=== PATIENT | male | born 1955 | race Caucasian/White ===

== ENCOUNTER 2017-02-08 09:56 | Inpatient (IN) | payer MEDICARE, MEDICAID ==
[~2017-02-08] VITALS: Ht 172.7 cm; Wt 117.9 kg
[~2017-02-08 09:56] MED LIST: CARV12.52 PO; DICL75TA5 PO; EZET10TA PO; FLUT1DIS5 IH; ICOS1CAP PO; MISO200T4 PO; PANT40TA2 GT; POTA10CA43 PO; QUET25TA PO; SERT50TA12 PO; SIMV40TA5 PO; TAMS0.4C34 PO; TIOT18CA3 INH; ZOLP5TAB2 PO
--- NOTE | 2017-02-08 10:10 | NUR ---
BBRA FROM HOME FOR BLE LEG PAIN, AND BILAT ARM PAIN X TODAY. LABORED BREATHING ON OXYGEN VIA NC DOUPER. DENIES CHEST PAIN. SEEN BY MD FOR EVAL. SAFETY AND COMFORT MEASURES PROVIDED. WILL MONITOR.
[2017-02-08 10:47] LABS: BASOPHILS # (AUTO) 0.1 /CMM (0.0-0.2); BASOPHILS % (AUTO) 0.6 % (0.0-2.0); EOSINOPHILS # (AUTO) 0.2 /CMM (0.0-0.7); EOSINOPHILS % (AUTO) 2.4 % (0.0-6.0); HEMATOCRIT 45 % (39-51); HEMOGLOBIN 14.3 g/dL (13.5-17.5); LYMPHOCYTES # (AUTO) 2.2 /CMM (0.8-4.8); LYMPHOCYTES % (AUTO) 25.3 % (20.0-44.0); MEAN CORPUSCULAR HEMOGLOBIN 28 PG (26.0-33.0); MEAN CORPUSCULAR HGB CONC 32 g/dl (31.0-36.0); MEAN CORPUSCULAR VOLUME 89 fL (80-96); MONOCYTES # (AUTO) 0.7 /CMM (0.1-1.30); MONOCYTES % (AUTO) 7.5 % (2.0-12.0); NEUTROPHILS # (AUTO) 5.6 /CMM (1.8-8.9); NEUTROPHILS % (AUTO) 64.2 % (43.0-81.0); PLATELET COUNT (AUTO) 200 /CMM (150-450); RED BLOOD CELL COUNT(AUTO) 5.07 MIL/uL (4.5-6.0); WHITE BLOOD COUNT (AUTO) 8.8 K/uL (4.3-11.0)
[2017-02-08 11:05] LABS: TROPONIN I < 0.017 ng/mL (0.00-0.056)
[2017-02-08 11:10] LABS: ALANINE AMINOTRANSFERASE 27 U/L (12-78); ALBUMIN 3.3 g/dL (3.4-5.0); ALKALINE PHOSPHATASE 61 U/L (46-116); ASPARTATE AMINOTRANSFERASE 15 U/L (15-37); B-TYPE NATRIURETIC PEPTIDE 71 PG/ML (0-125); BILIRUBIN,DIRECT 0.1 mg/dL (0.0-0.2); BILIRUBIN,TOTAL 0.3 mg/dL (0.2-1.0); CALCIUM, SERUM 8.6 mg/dL (8.5-10.1); CHLORIDE 103 mmol/L (98-107); CREATININE 0.8 mg/dL (0.6-1.3); GLUCOSE 125 mg/dL (74-106); SODIUM SERUM 144 mmol/L (136-145); TOTAL PROTEIN, SERUM 6.8 g/dL (6.4-8.2); UREA NITROGEN, BLOOD 13 mg/dL (7-18)
[2017-02-08 11:12] LABS: CARBON DIOXIDE 42 mmol/L (21-32)
[2017-02-08] MEDS ORDERED: VALS80TA2 PO (11:18)
[2017-02-08] MEDS ORDERED: PREG50CA PO (11:18)
[2017-02-08] MEDS ORDERED: PRED20TA PO (11:18)
[2017-02-08] MEDS ORDERED: METF500T4 PO (11:18)
[2017-02-08] MEDS ORDERED: ALBU18HF2 IH (11:18)
[2017-02-08] MEDS ORDERED: ATOR40TA PO (11:18)
[2017-02-08] MEDS ORDERED: BUME2TAB3 PO (11:18)
[2017-02-08] MEDS ORDERED: LINA145C PO (11:18)
[2017-02-08] MEDS ORDERED: POTA10TA15 PO (11:18)
[2017-02-08] MEDS ORDERED: ERGO50003 PO (11:18)
[2017-02-08 12:42] LABS: ABG BASE EXCESS 9.7 mmol/L; ABG OXYGEN SATURATION 92.9 % (92.0-98.5); ABG PCO2 45.7 mmHg (35.0-45.0); ABG PH 7.494 (7.350-7.450); COHb 0.9 % (0.5-1.5); MetHb 0.2 % (0.0-1.5); O2Hb 91.9 % (94.0-97.0); SITE, ABG Right Brachial; VENT MODE, BG NASAL CANNULA
--- NOTE | 2017-02-08 14:18 | NUR ---
GAVE REPORT TO FERNIE GRIDERHELEN ROOM [address] DR PRICE
--- NOTE | 2017-02-08 14:30 | NUR ---
RN NOTES ADMITTED A 61Y/O M FROM ER WITH DX OF COPD EXACERBATION. PT IS ALERT, SLEEPY RESPONSIVE TO VERBAL AND TACTILE STIMULI. PT ABLE TO COMMUNICATE NEEDS. PT IS ON O2@4LPM VIA NC, VS TAKEN AND RECORDED. BODY CHECK DONE NOTE RASHES ON THE BACK, PICTURES TAKEN AND FILED ON THE CHART. MD MADE AWARE OF RASHES, WOUND CONSULT ORDERED. ORIENTED PT TO UNIT AND CALL LIGHT USE, SAFETY MAINTAINED, NEEDS ATTENDED. CALL LIGHT WITHIN REACH.
[2017-02-08 14:45] VITALS: BP 148/69
[2017-02-08 16:00] VITALS: BP 148/69
--- NOTE | 2017-02-08 18:27 | NUR ---
RN NOTES PT SITTING IN BED, EATING DINNER, PT REMINDED TO BRING HOME MEDS OR ASK SOMEONE FROM HIS HOME TO BRING CURRENT MEDS. PT OKAYED
--- NOTE | 2017-02-08 18:45 | NUR ---
RN NOTES DR PRICE AT BEDSIDE, PT WAS SEEN AND EVALUATED. FAMILY MEMBERS AT BEDSIDE. PLAN OF CARE DISCUSSED BY MD. PT VERBALIZED CONCERNS AND UNDERSTANDING. REMINDED AND SON TO BRING PT HOME MEDS. AGREED.
[2017-02-08 20:00] VITALS: BP 111/78
--- NOTE | 2017-02-08 23:45 | NUR ---
Tx to 204 via w/c and belongings
[2017-02-09 00:30] VITALS: BP 128/63
--- NOTE | 2017-02-09 00:30 | NUR ---
MS FAMILY LIFE COUNSELOR NOTES: RECEIVED REPORT FROM BURTON BAILEY. PATIENT BOUGHT TO MS 2ND FLOOR VIA WHEELCHAIR, AOX4, ON O2 AT 2 LPM VIA NC. BREATHING APPEARS EVEN AND UNLABORED AT RATE OF 20- 22 PER MIN, NOTED SLIGHT COARSE CRACKLES UPON AUSCULTATION. PIV OVER LEFT HAND TENDER TO TOUCH. D'SUDHAKAR PIV AND REINSERTED NEW IV LINE OVER LEFT WRIST G22. PROVIDED FOR COMFORT AND SAFETY. BED IN LOWEST AND LOCKED POSITION, SIDERAILS UPX3. MAINTAINED HOB ELEVATED. WILL CONT TO MONITOR.
[2017-02-09 01:20] VITALS: BP 128/63
--- NOTE | 2017-02-09 03:40 | NUR ---
RN NOTES: PATIENT COMPLAINED OF PAIN OVER BLE SCLAED AT 8-10. ADMINISTERED NORCO 5- 325 MG PO. PROVIDED FOR COMFORT AND REST. WILL CONT TO MONITOR.
[2017-02-09 06:27] LABS: BASOPHILS % (AUTO) 0.2 % (0.0-2.0); HEMATOCRIT 43 % (39-51); LYMPHOCYTES # (AUTO) 1.4 /CMM (0.8-4.8); LYMPHOCYTES % (AUTO) 11.4 % (20.0-44.0); MEAN CORPUSCULAR HEMOGLOBIN 29 PG (26.0-33.0); MEAN CORPUSCULAR HGB CONC 33 g/dl (31.0-36.0); MEAN CORPUSCULAR VOLUME 89 fL (80-96); MONOCYTES # (AUTO) 0.7 /CMM (0.1-1.30); MONOCYTES % (AUTO) 5.8 % (2.0-12.0); NEUTROPHILS # (AUTO) 9.9 /CMM (1.8-8.9); NEUTROPHILS % (AUTO) 82.6 % (43.0-81.0); PLATELET COUNT (AUTO) 228 /CMM (150-450); RDW COEFFICIENT OF VARIATION 14.6 (11.5-15.0); RED BLOOD CELL COUNT(AUTO) 4.77 MIL/uL (4.5-6.0)
--- NOTE | 2017-02-09 06:33 | NUR ---
MS RN CLOSING NOTES: PATIENT IN BED, AOX4, ON O2 AT 2 LPM VIA NC, BREATHING EVEN AND UNLABORED. BREATH SOUNDS STILL WITH SLIGHT CRACKLES HEARD UPON AUSCULTATION. APPEARS CALM AND IN NO DISTRESS. PIV OVER L WRIST G22 INTACT AND PATENT TO FLUSH. NO ACUTE CHANGE IN CONDITION NOTED THROUGH SHIFT. PROVIDED FOR COMFORT AND SAFETY. BED IN LOWEST AND LOCKED POSITION, SIDERAILS UPX2. WILL ENDORSE TO AM RN FOR ADRIANA.
[2017-02-09 06:47] LABS: CALCIUM, SERUM 9.2 mg/dL (8.5-10.1); CREATININE 0.7 mg/dL (0.6-1.3); MAGNESIUM 1.7 mg/dL (1.8-2.4); POTASSIUM 3.6 mmol/L (3.5-5.1)
--- NOTE | 2017-02-09 07:05 | NUR ---
MS Initial Notes: Received patient resting in bed. Patient alert oriented x4. Non-labored breathing on 2 L nasal cannula. Patient denies pain at the moment. IV site on left wrist patent and intact. Bed in lowest locked position. Call light within reach. Will continue to monitor.
[2017-02-09 08:00] VITALS: BP 132/77
[2017-02-09 16:00] VITALS: BP_SYST 131; BP_DIAS 81; BP_DIAS 88
--- NOTE | 2017-02-09 19:00 | NUR ---
MS Closing Notes: Received patient resting in bed. Patient alert oriented x4. Non-labored breathing on 2 L nasal cannula. Patient denies pain at the moment. IV site on left wrist patent and intact. Bed in lowest locked position. Call light within reach. During shift, patient kept clean and dry. Patient encouraged to turn and reposition every 2 hours. Endorsed to next shift
--- NOTE | 2017-02-09 19:30 | NUR ---
MS RN OPENING NOTES: PATIENT IN BED, AOX4, ON O2 AT 3 LPM VIA NC, BREATHING EVEN AND UNLABORED AT RATE OF 18 TO 20 PER MIN, BREATH SOUNDS CLEAR UPON AUSCULTATION AT THIS TIME. PATIENT APPEARS CALM AND IN NO DISTRESS, WATCHING TELEVISION. DENIES PAIN. PIV OVER LEFT WRIST G 22 INTACT AND PATENT TO FLUSH. PROVIDED FOR COMFORT AND SAFETY. MAINTAINED HOB AT SEMI FOWLERS, SIDERAILS UP X2, WILL CONT TO MONITOR.
[2017-02-09 20:00] VITALS: BP 124/72
--- NOTE | 2017-02-10 06:48 | NUR ---
MS RN CLOSING NOTES: PATIENT IN BED, AOX4, ON O2 AT 3 LPM VIA NC, BREATHING EVEN AND UNLABORED, BUT STILL WITH SOME SLIGHT CRACKLES HEARD UPON AUSCULTATION, WITH OCCASIONAL COUGH NOTED. PIV OVER LEFT WRIST G22 INTACT AND PATENT TO FLUSH. PROVIDED FOR COMFORT AND SAFETY. MAINTAINED HOB ELEVATED. NO ACUTE CHANGE IN CONDITION NOTED THROUGH SHIFT. WILL ENDORSE TO AM RN FOR ADRIANA.
[2017-02-10 07:03] LABS: BASOPHILS % (AUTO) 0.1 % (0.0-2.0); EOSINOPHILS % (AUTO) 0.3 % (0.0-6.0); HEMATOCRIT 46 % (39-51); LYMPHOCYTES # (AUTO) 2.9 /CMM (0.8-4.8); LYMPHOCYTES % (AUTO) 21.9 % (20.0-44.0); MEAN CORPUSCULAR HEMOGLOBIN 29 PG (26.0-33.0); MEAN CORPUSCULAR HGB CONC 33 g/dl (31.0-36.0); MEAN CORPUSCULAR VOLUME 90 fL (80-96); MONOCYTES % (AUTO) 7.4 % (2.0-12.0); NEUTROPHILS # (AUTO) 9.3 /CMM (1.8-8.9); NEUTROPHILS % (AUTO) 70.3 % (43.0-81.0); PLATELET COUNT (AUTO) 229 /CMM (150-450); RED BLOOD CELL COUNT(AUTO) 5.15 MIL/uL (4.5-6.0); WHITE BLOOD COUNT (AUTO) 13.2 K/uL (4.3-11.0)
--- NOTE | 2017-02-10 07:10 | NUR ---
ms rn initial notes Received patient in bed, awake, head of bed elevated, no SOB or distress noted. on 3lpm via NC and tolerated well, 02 saturation of 98%. No complaint of pain or discomfort noted. IV intact and patent. Barbadian speaking and understand salvadorean. Kept patient clean and comfortable in bed, call light with in patient reach, will continue to monitor accordingly.
[2017-02-10 07:19] LABS: CALCIUM, SERUM 9.3 mg/dL (8.5-10.1); CREATININE 0.8 mg/dL (0.6-1.3); POTASSIUM 3.2 mmol/L (3.5-5.1)
[2017-02-10 08:00] VITALS: BP 104/69
--- NOTE | 2017-02-10 13:14 | NUR ---
ms rn notes Dr. Calvillo came seen and examined the patient and ordered Guaifenesin with codeine 10 ml Qhs PRN. All orders carried out and noted. Will continue to monitor accordingly.
[2017-02-10 16:00] VITALS: BP 114/69
--- NOTE | 2017-02-10 19:28 | NUR ---
ms rn closing notes All needs provided, attended, and anticipated. Endorsed to next shift RN to continue care.
--- NOTE | 2017-02-10 19:30 | NUR ---
MS RN NOTE: PATIENT RESTING IN BED, NO ACUTE DISTRESS NOTED. BREATHING EVEN AND UNLABORED, NO SOB NOTED. IV TO LEFT WRIST IN PLACE. BED LOCKED AND IN LOWEST POSITION, CALL LIGHT IN REACH, WILL CONTINUE TO MONITOR.
[2017-02-10 19:59] VITALS: BP 102/57
--- NOTE | 2017-02-10 21:00 | NUR ---
MS RN NOTE: PATIENT COMPLAINS OF PAIN TO LEFT LEG 11/18, NORCO 5/325MG 1 TAB ORAL GIVEN PER MD ORDER. WILL CONTINUE TO MONITOR.
--- NOTE | 2017-02-10 23:30 | NUR ---
MS RN NOTE: PATIENT REQUEST FOR SLEEPING MEDICATIONS, AMBIEN 5MG 1 TAB ORAL GIVEN PER MD ORDER. WILL CONTINUE TO MONITOR.
--- NOTE | 2017-02-11 06:00 | NUR ---
MS RN NOTE: PATIENT RESTING IN BED, NO ACUTE DISTRESS NOTED. BREATHING EVEN AND UNLABORED, NO SOB NOTED. IV TO LEFT WRIST IN PLACE. BED LOCKED AND IN LOWEST POSITION, CALL LIGHT IN REACH, WILL ENDORSE TO DAY NURSE TO CONTINUE WITH PLAN OF CARE.
[2017-02-11 06:30] LABS: BASOPHILS % (AUTO) 0.3 % (0.0-2.0); EOSINOPHILS # (AUTO) 0.1 /CMM (0.0-0.7); EOSINOPHILS % (AUTO) 1.2 % (0.0-6.0); HEMATOCRIT 50 % (39-51); HEMOGLOBIN 16.5 g/dL (13.5-17.5); LYMPHOCYTES # (AUTO) 3.8 /CMM (0.8-4.8); LYMPHOCYTES % (AUTO) 32.8 % (20.0-44.0); MEAN CORPUSCULAR HEMOGLOBIN 29 PG (26.0-33.0); MEAN CORPUSCULAR HGB CONC 33 g/dl (31.0-36.0); MEAN CORPUSCULAR VOLUME 88 fL (80-96); MONOCYTES # (AUTO) 0.7 /CMM (0.1-1.30); MONOCYTES % (AUTO) 6.4 % (2.0-12.0); NEUTROPHILS # (AUTO) 6.9 /CMM (1.8-8.9); NEUTROPHILS % (AUTO) 59.3 % (43.0-81.0); PLATELET COUNT (AUTO) 255 /CMM (150-450); RED BLOOD CELL COUNT(AUTO) 5.67 MIL/uL (4.5-6.0); WHITE BLOOD COUNT (AUTO) 11.7 K/uL (4.3-11.0)
[2017-02-11 06:43] LABS: CALCIUM, SERUM 9.3 mg/dL (8.5-10.1); CREATININE 0.9 mg/dL (0.6-1.3); POTASSIUM 3.3 mmol/L (3.5-5.1)
--- NOTE | 2017-02-11 07:02 | NUR ---
ms rn initial notes Received patient in bed, asleep, head of bed elevated, no sob or distress noted. On 02 @ 2lpm via NC and tolerated well 02 saturation of 98%. IV intact and patent HL only. Alert and oriented x 3, verbally responsive and able to make needs known. Kept patient clean and comfortable in bed, call light with in patient reach, will continue to monitor accordingly.
[2017-02-11 08:00] VITALS: BP_SYST 116; BP_SYST 138; BP_DIAS 71; BP_DIAS 88
[2017-02-11 16:00] VITALS: BP 114/63
--- NOTE | 2017-02-11 19:11 | NUR ---
ms rn closing notes All needs provided, attended, and anticipated. Kept patient clean and comfortable in bed, call light with in patient reach, endorsed to next shift RN to continue care.
--- NOTE | 2017-02-11 19:30 | NUR ---
MS2/RN RECEIVE PATIENT AWAKE, ALERT, ORIENTED, COMFORTABLE, NO DISTRESS NOTED, CALL LIGHT IN REACH. WILL MONITOR.
[2017-02-11 20:00] VITALS: BP 102/63
--- NOTE | 2017-02-11 21:14 | NUR ---
MS2/RN C/O COUGH, ROBITUSSIN 10 ML PO WAS GIVEN ORDERED. WILL MONITOR.
--- NOTE | 2017-02-11 22:02 | NUR ---
MS2/RN PATIENT STATES HIS COUGH IS BETTER AND HE FEELS BETTER AT THIS TIME. PATIENT WANTS MEDICATION THAT WILL MAKE HIM SLEEP. PATIENT STATES HE HAS NO SLEEP FOR 3 DAYS NOW. WILL MEDICATE WITH AMBIEN 5 MG PO ORDERED.
--- NOTE | 2017-02-11 23:50 | NUR ---
MS2/RN PATIENT IS SLEEPING AT THIS TIME, APPEAR COMFORTABLE, NO SIGNS OF DISTRESS NOTED, CALL LIGHT IN REACH. WILL CONTINUE TO MONITOR.
--- NOTE | 2017-02-12 06:32 | NUR ---
MS2/RN PATIENT AWAKE, STATES STILL HAS PAIN IN BOTH LEGS, NO DISTRESS NOTED, ALL NEEDS ATTENDED AT THIS TIME. WILL CONTINUE TO MONITOR.
[2017-02-12 06:38] LABS: BASOPHILS # (AUTO) 0.1 /CMM (0.0-0.2); BASOPHILS % (AUTO) 0.5 % (0.0-2.0); EOSINOPHILS % (AUTO) 0.3 % (0.0-6.0); HEMATOCRIT 48 % (39-51); HEMOGLOBIN 15.8 g/dL (13.5-17.5); LYMPHOCYTES # (AUTO) 2.4 /CMM (0.8-4.8); MEAN CORPUSCULAR HEMOGLOBIN 29 PG (26.0-33.0); MEAN CORPUSCULAR HGB CONC 33 g/dl (31.0-36.0); MEAN CORPUSCULAR VOLUME 88 fL (80-96); MONOCYTES # (AUTO) 0.9 /CMM (0.1-1.30); MONOCYTES % (AUTO) 5.4 % (2.0-12.0); NEUTROPHILS # (AUTO) 12.6 /CMM (1.8-8.9); NEUTROPHILS % (AUTO) 78.8 % (43.0-81.0); PLATELET COUNT (AUTO) 217 /CMM (150-450); RDW COEFFICIENT OF VARIATION 15.1 (11.5-15.0); RED BLOOD CELL COUNT(AUTO) 5.47 MIL/uL (4.5-6.0); WHITE BLOOD COUNT (AUTO) 15.9 K/uL (4.3-11.0)
[2017-02-12 07:15] LABS: CALCIUM, SERUM 9.5 mg/dL (8.5-10.1); CREATININE 0.9 mg/dL (0.6-1.3)
--- NOTE | 2017-02-12 08:00 | NUR ---
MS BURTON AM notes Received patient in bed, awake,alert, head of bed elevated, no sob or distress noted. On 02 @ 4lpm via NC and tolerated well 02 saturation of 98%.Alert and oriented x 4, verbally responsive and able to make needs known.denies SOB.with BRP using FWW.Kept patient clean and comfortable in bed, call light with in patient reach, will continue to monitor accordingly.
--- NOTE | 2017-02-12 08:00 | NUR ---
MS BURTON AM Notes Received patient in bed, alert,awake with head of bed elevated, no sob or distress noted. On 02 @ 2lpm via NC and tolerated well 02 saturation of 98%. IV intact and patent HL only. Alert and oriented x 3, verbally responsive and able to make needs known. On NPO for pending sx.Awaiting for Dr High's surgical order.CT of left knee without contrast still pending.Kept patient clean and comfortable in bed, call light with in patient reach, will continue to monitor accordingly. Addendum: 02/12/17 at 1230 by LEO EASTON RN pls ignore above notes-wrong pt documentation.
[2017-02-12 08:11] VITALS: BP 108/70
[2017-02-12 08:42] VITALS: BP 108/70
[2017-02-12] MEDS ORDERED: HYDR-548 PO (11:01)
--- NOTE | 2017-02-12 15:40 | NUR ---
DISCHARGED PT HOME WITH STABLE V/S.DENIES ANY SOB,PAIN OR DISTRESS.ACCOMPANIED BY HIS HOME VIA PRIVATE CAR.DISCHARGE INSTRUCTIONS,MED RECONCILIATION,PRESCRIPTIONS AND MED TEACHING GIVEN TO THE PT.
== END 2017-02-12 15:40 | disposition home or self-care (01) | DRG 189 ==
LOC: ER 09:58 → MEDSG1 14:07 → MEDSG2 23:56
PROVIDERS: ADMIT Family Medicine; ATTEND Family Medicine
DX: J96.02 Acute respiratory failure with hypercapnia (principal); J44.1 Chronic obstructive pulmonary disease with (acute) exacerbation; E44.1 Mild protein-calorie malnutrition; I11.0 Hypertensive heart disease with heart failure; I50.32 Chronic diastolic (congestive) heart failure; Z99.81 Dependence on supplemental oxygen; D72.829 Elevated white blood cell count, unspecified; E11.9 Type 2 diabetes mellitus without complications; E55.9 Vitamin D deficiency, unspecified; E66.01 Morbid (severe) obesity due to excess calories; E78.5 Hyperlipidemia, unspecified; E83.42 Hypomagnesemia; E87.6 Hypokalemia; F17.210 Nicotine dependence, cigarettes, uncomplicated; G47.33 Obstructive sleep apnea (adult) (pediatric); M79.7 Fibromyalgia; Z79.899 Other long term (current) drug therapy; E88.09 Other disorders of plasma-protein metabolism, not elsewhere classified; N40.0 Benign prostatic hyperplasia without lower urinary tract symptoms; Z68.39 Body mass index [BMI] 39.0-39.9, adult; K59.00 Constipation, unspecified
CPT/HCPCS: 36415; 36600; 71010-TC; 80048-TC; 80061-TC; 80076-TC; 83735-TC; 83880; 84100-TC; 84484-TC; 85025-TC; 87081-TC; 94799-TC; A4606; J0456; J2920; J2930; J3475; J7050; J7060; Z7610

== ENCOUNTER 2017-04-03 00:36 | Inpatient (IN) | payer MEDICARE, OTHER ==
[~2017-04-03] VITALS: Ht 170.2 cm; Wt 97.5 kg
[~2017-04-03 00:36] MED LIST changes: +ALBU18HF2 IH; +ATOR40TA PO; +BUME2TAB3 PO; -DICL75TA5 PO; +ERGO500014 PO; -EZET10TA PO; +EZET10TA14 PO; +LINA145C PO; +METF500T4 PO; -PANT40TA2 GT; -POTA10CA43 PO; +POTA10TA15 PO; +PRED20TA PO; +PREG50CA PO; -QUET25TA PO; -SIMV40TA5 PO; -TIOT18CA3 INH; +VALS80TA2 PO; -ZOLP5TAB2 PO
--- NOTE | 2017-04-03 00:45 | NUR ---
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 PER EMS PT 02 SAT 89% ON CPAP. UPON ARRIVAL, PATIENT AAOX4, IS ON BREATHING TREATMENT BY EMS. KEPT HOB ELEVATED. MAINTAINED PATENT AIRWAY. PLACED CARDIAC AND VS MONITORING. GOWNED. COMFORT MEASURES RENDERED.
[2017-04-03] MEDS ORDERED: methylPREDNISolone SOD SUCC 125 MG/2ML VIAL ONE (00:55)
--- NOTE | 2017-04-03 00:58 | NUR ---
STARTED A SALINE LOCK ON THE LAC G18, BLOOD DRAWN AND SENT TO LAB.
[2017-04-03] MEDS ORDERED: methylPREDNISolone SOD SUCC 125 MG/2ML VIAL IV ONE (01:00)
--- NOTE | 2017-04-03 01:02 | NUR ---
99.[address] DIAZ MADE AWARE
--- NOTE | 2017-04-03 01:06 | NUR ---
TELE BED 116-2
[2017-04-03 01:07] LABS: BASOPHILS % (AUTO) 0.2 % (0.0-2.0); EOSINOPHILS # (AUTO) 0.3 /CMM (0.0-0.7); EOSINOPHILS % (AUTO) 2.3 % (0.0-6.0); HEMATOCRIT 48 % (39-51); HEMOGLOBIN 15.6 g/dL (13.5-17.5); LYMPHOCYTES % (AUTO) 25.4 % (20.0-44.0); MEAN CORPUSCULAR HEMOGLOBIN 29 PG (26.0-33.0); MEAN CORPUSCULAR HGB CONC 32 g/dl (31.0-36.0); MEAN CORPUSCULAR VOLUME 90 fL (80-96); MONOCYTES # (AUTO) 0.7 /CMM (0.1-1.30); MONOCYTES % (AUTO) 5.6 % (2.0-12.0); NEUTROPHILS # (AUTO) 7.8 /CMM (1.8-8.9); NEUTROPHILS % (AUTO) 66.5 % (43.0-81.0); PLATELET COUNT (AUTO) 219 /CMM (150-450); RDW COEFFICIENT OF VARIATION 15.2 (11.5-15.0); RED BLOOD CELL COUNT(AUTO) 5.39 MIL/uL (4.5-6.0); WHITE BLOOD COUNT (AUTO) 11.7 K/uL (4.3-11.0)
--- NOTE | 2017-04-03 01:07 | NUR ---
XR AT BEDSIDE.
[2017-04-03 01:14] LABS: CALCIUM, SERUM 9.5 mg/dL (8.5-10.1); CARBON DIOXIDE 37 mmol/L (21-32); CHLORIDE 103 mmol/L (98-107); CREATININE 0.9 mg/dL (0.6-1.3); GLUCOSE 217 mg/dL (74-106); POTASSIUM 3.9 mmol/L (3.5-5.1); SODIUM SERUM 141 mmol/L (136-145); UREA NITROGEN, BLOOD 17 mg/dL (7-18)
[2017-04-03 01:17] LABS: INR 1.02 (0.87-1.13); PROTHROMBIN TIME 10.6 SECS (9.5-12.7)
--- NOTE | 2017-04-03 01:20 | NUR ---
URINE COLLECTED VIA CLEAN CATCH, PICKED UP BY LAB.
[2017-04-03 01:22] LABS: TROPONIN I < 0.017 ng/mL (0.00-0.056)
[2017-04-03 01:27] LABS: ALANINE AMINOTRANSFERASE 32 U/L (12-78); ALBUMIN 3.7 g/dL (3.4-5.0); ALKALINE PHOSPHATASE 70 U/L (46-116); ASPARTATE AMINOTRANSFERASE 21 U/L (15-37); B-TYPE NATRIURETIC PEPTIDE 30 PG/ML (0-125); BILIRUBIN,DIRECT 0.1 mg/dL (0.0-0.2); BILIRUBIN,TOTAL 0.5 mg/dL (0.2-1.0); TOTAL PROTEIN, SERUM 7.6 g/dL (6.4-8.2)
[2017-04-03 01:32] LABS: APPEARANCE,URINE CLEAR (CLEAR); BILIRUBIN,URINE NEGATIVE (NEGATIVE); BLOOD, URINE 1+ Ery/uL (NEGATIVE); COLOR,URINE YELLOW (YELLOW); KETONES,URINE NEGATIVE (NEGATIVE); LEUKOCYTE ESTERASE ,URINE NEGATIVE (NEGATIVE); NITRITE, URINE NEGATIVE (NEGATIVE); PH,URINE 5.5 (5.0-8.0); PROTEIN,URINE NEGATIVE (NEGATIVE); UGLUCOSE NEGATIVE (NEGATIVE); UROBILINOGEN,URINE 0.2 EU/dL (0.2)
[2017-04-03 01:35] LABS: BACTERIA,URINE None seen /HPF (None Seen); SQUAMOUS EPITHELIAL CELL,UR Few /HPF (None Seen); WBC,URINE 0-2 /HPF (0-3)
--- NOTE | 2017-04-03 02:04 | NUR ---
EPIC PAGED FOR PANEL CALL
--- NOTE | 2017-04-03 02:17 | NUR ---
Report given to Johnnie GONZALEZ for frandy.
--- NOTE | 2017-04-03 02:22 | NUR ---
PT TRANSFERRED PER ACLS PROTOCOL.
[2017-04-03] MEDS ORDERED: MAGNESIUM HYDROXIDE 30 ML UDC PO PRN (02:30)
[2017-04-03] MEDS ORDERED: Z GUARD REMEDY 2 OZ OINT TP PRN (02:30)
[2017-04-03] MEDS ORDERED: ONDANSETRON HCL/PF 4 MG/2 ML VIAL IVP PRN (02:30)
[2017-04-03] MEDS ORDERED: hydrALAZINE HCL 25 MG TABLET PO PRN (02:30)
[2017-04-03] MEDS ORDERED: ZOLPIDEM TARTRATE 5 MG TABLET PO PRN (02:30)
[2017-04-03] MEDS ORDERED: MAG HYDROX/AL HYDROX/SIMETH 30 ML UDC PO PRN (02:30)
[2017-04-03] MEDS ORDERED: IPRATROPIUM NEB FS 0.5 MG/2.5 ML AMPUL.NEB NEB PRN (02:30)
[2017-04-03] MEDS ORDERED: ACETAMINOPHEN 325 MG TABLET PO PRN (02:30)
[2017-04-03] MEDS ORDERED: ENOXAPARIN SODIUM 40 MG/0.4 ML DISP.SYRIN SQ SCH ×2 (02:30→21:00)
--- NOTE | 2017-04-03 02:30 | NUR ---
CHIEF SOLUTION ARCHITECT ADMITTING NOTES RECEIVED REPORT FROM POCKET GRINDER OPERATOR. PATIENT ARRIVED ON UNIT VIA GURNEY TO ROOM 102. PATIENT A/A/O X4, ABLE TO FOLLOW SIMPLE COMMANDS AND ANSWER QUESTIONS. SOME SOB NOTED WHILE ON O2 4L VIA NC BUT PATIENT SATING @ 94-95%. DENIES ANY CHEST PAIN OR DISCOMFORT. TELE READING ON MONITOR SINUS TACH IN THE LOW 100S. PATIENT ABLE TO AMBULATE W/ STEADY GAIT & TRANSFERRED SELF FROM GURNEY TO BED. LEFT AC IV #18 INTACT & PATENT W/ DRESSING CDI. NO COMPLICATIONS NOTED. SKIN DRY, INTACT & WARM TO TOUCH. C/O GENERALIZED BODY PAIN. PATIENT INSTRUCTED TO USE CALL LIGHT. SAFETY MEASURES IN PLACE W/ SIDE RAILS UP & BED LOCKED & IN LOWEST POSITION. WILL CONTINUE TO MONITOR FOR ANY CHANGES.
--- NOTE | 2017-04-03 02:30 | NUR ---
Transferred patient to tele bed 103 via als protocol, no incident noted. BURTON Blair at bedside.
[2017-04-03] MEDS: ALBUTEROL FS 2.5 MG/3 ML VIAL.NEB NEB SCH ×3 (02:32→14:06)
[2017-04-03 02:46] VITALS: BP 150/80
[2017-04-03] MEDS ORDERED: ENOXAPARIN SODIUM 40 MG/0.4 ML DISP.SYRIN SQ ONE (02:51)
[2017-04-03] MEDS ORDERED: HYDROCODONE/APAP 5/325MG 1 EACH TABLET ONE (02:52)
[2017-04-03] MEDS: HYDROCODONE/APAP 5/325MG 1 EACH TABLET PO PRN ×2 (02:55→14:03)
[2017-04-03] MEDS ORDERED: hydrALAZINE HCL 25 MG TABLET ONE (04:32)
[2017-04-03] MEDS ORDERED: FLUTICASONE/SALMETEROL DISKUS IH SCH (05:00)
--- NOTE | 2017-04-03 05:37 | NUR ---
RN NOTES ADVAIR MEDICATION NOT AVAILABLE IN OMNICELL. NURSING SILK SCREEN FRAME ASSEMBLER MADE AWARE. PER SILK SCREEN FRAME ASSEMBLER, WILL WAIT FOR PHARMACY TO OPEN FOR MEDICATION.
--- NOTE | 2017-04-03 07:09 | NUR ---
TELE OPENING NOTE RECEIVED PT A/O 4, RESTING IN BED. ON 3L NC, RESPIRATIONS EVEN AND UNLABORED, NO SOB OR DISTRESS PRESENT. TELE MONITOR REVEALS SINUS RHYTHM, HR= 87. PT CONTINENT OF URINE & STOOL, URINAL AT BEDSIDE. LAC 18G HL FLUSHED, PATENT AND INTACT. SAFETY MEASURES TAKEN: BED LOCKED AND IN LOW POSITION, SIDE RAILS UP X2 AND CALL LIGHT WITHIN REACH, WILL CONTINUE TO MONITOR.
[2017-04-03 08:00] VITALS: BP 148/78
[2017-04-03] MEDS: methylPREDNISolone SOD SUCC 125 MG/2ML VIAL IV SCH ×2 (08:54→13:59)
[2017-04-03] MEDS ORDERED: FLUTICASONE/VILANTEROL 1 EACH BLST.W.DEV IH SCH (09:00)
[2017-04-03] MEDS ORDERED: SERTRALINE HCL 50 MG TABLET PO SCH (09:00)
[2017-04-03] MEDS ORDERED: CARVEDILOL 12.5 MG TABLET PO SCH (09:00)
[2017-04-03] MEDS ORDERED: TAMSULOSIN 0.4 MG CAP.SR.24H PO SCH (09:00)
[2017-04-03] MEDS ORDERED: METFORMIN 500 MG TABLET PO SCH (09:00)
[2017-04-03] MEDS ORDERED: BUMETANIDE INJ 0.25 MG/ML VIAL IV SCH (09:00)
[2017-04-03] MEDS ORDERED: ATORVASTATIN 40 MG TABLET PO SCH (09:00)
[2017-04-03] MEDS ORDERED: PREGABALIN 100 MG CAPSULE PO SCH (09:00)
[2017-04-03] MEDS ORDERED: VALSARTAN 80 MG TABLET PO SCH (09:00)
[2017-04-03 12:00] VITALS: BP 119/51
[2017-04-03] MEDS ORDERED: PNEUMOCOCCAL 23-VAL P-SAC VAC 0.5 ML VIAL SQ ONE (12:00)
[2017-04-03] MEDS ORDERED: PRED50TA PO (13:20)
[2017-04-03] MEDS ORDERED: SUCCINYLCHOLINE CHLORIDE 20 MG/ML VIAL IV ONE (14:23)
[2017-04-03] MEDS ORDERED: ETOMIDATE 2 MG/ML VIAL IV ONE (14:23)
--- NOTE | 2017-04-03 16:39 | NUR ---
TELE DISCHARGE NOTE PT DISCHARGED TO HOME VIA PRIVATE AUTOMOBILE ACCOMPANIED BY SON IN STABLE CONDITION. SON PROVIDED HOME O2 TANK. RX SENT TO [facility]. PT & SON AWARE NEED TO CONCRETE [facility]OURNEY[facility] RX. PER PT, ALREADY HAS APPOINTMENT WITH PCP NEXT WEEK. REINFORCED SMOKING CESSATION TO PATIENT. IV HEPLOCK WAS REMOVED. ALL BELONGINGS SENT WITH PT. ADMINISTERED PNEUMONIA VACCINE PER MD ORDER. VERBAL CONSENT OBTAINED FROM PATIENT. DISCHARGE INSTRUCTIONS REVIEWED & SIGNED WITH PT. ALL QUESTIONS ANSWERED.
== END 2017-04-03 16:48 | disposition home or self-care (01) | DRG 191 ==
LOC: ER 00:38 → TELE1 01:58
PROVIDERS: ADMIT Internal Medicine; ATTEND Internal Medicine
DX: J44.1 Chronic obstructive pulmonary disease with (acute) exacerbation (principal); I50.32 Chronic diastolic (congestive) heart failure; E11.40 Type 2 diabetes mellitus with diabetic neuropathy, unspecified; I11.0 Hypertensive heart disease with heart failure; Z79.899 Other long term (current) drug therapy; Z79.84 Long term (current) use of oral hypoglycemic drugs; G47.33 Obstructive sleep apnea (adult) (pediatric); E66.9 Obesity, unspecified; Z68.33 Body mass index [BMI] 33.0-33.9, adult; J44.0 Chronic obstructive pulmonary disease with (acute) lower respiratory infection; E11.9 Type 2 diabetes mellitus without complications
CPT/HCPCS: 36415; 71010-TC; 80048-TC; 80076-TC; 81000-TC; 82962-TC; 83605-TC; 83880; 84484-TC; 85025-TC; 85730-TC; 87040-TC; 87081-TC; 87086-TC; 90732; 94799-TC; A4606; J0330; J1650; J2930; J3490; Z7610

== ENCOUNTER 2017-04-17 16:00 | Inpatient (IN) | payer MEDICARE, OTHER ==
[2017-04-17] VITALS (10 sets, daily range): BP systolic 125–197; BP diastolic 51–128
[~2017-04-17] VITALS: Ht 165.1 cm; Wt 121.1 kg
[~2017-04-17 16:00] MED LIST changes: -ERGO500014 PO; +ERGO50003 PO; +EZET10TA PO; -EZET10TA14 PO; -PRED20TA PO; +PRED50TA PO
--- NOTE | 2017-04-17 16:05 | NUR ---
BIBRA89 DT SOB SINCE THANKSGIVING WORST TODAY. PATIENT IS AWAKE AND ALERT, APPEARS ANXIOUS. PATIENT IS SATING 94% ON ROOM AIR, DENIES CHEST PAIN,. SKIN IS WARM TO TOUCH AND NON DIAPHORETIC. AFEBRILE. VSS
[2017-04-17] MEDS ORDERED: ALBUTEROL FS 2.5 MG/3 ML VIAL.NEB ONE ×2 (16:20→18:00)
[2017-04-17] MEDS ORDERED: IPRATROPIUM NEB FS 0.5 MG/2.5 ML AMPUL.NEB ONE (16:20)
[2017-04-17] MEDS ORDERED: ALBUTEROL FS 2.5 MG/3 ML VIAL.NEB CONTNEB ONE (16:30)
[2017-04-17] MEDS ORDERED: IPRATROPIUM NEB FS 0.5 MG/2.5 ML AMPUL.NEB NEB ONE (16:30)
[2017-04-17 16:45] LABS: BASOPHILS # (AUTO) 0.2 /CMM (0.0-0.2); BASOPHILS % (AUTO) 1.6 % (0.0-2.0); EOSINOPHILS % (AUTO) 0.1 % (0.0-6.0); HEMATOCRIT 45 % (39-51); HEMOGLOBIN 15.1 g/dL (13.5-17.5); LYMPHOCYTES # (AUTO) 1.7 /CMM (0.8-4.8); LYMPHOCYTES % (AUTO) 11.3 % (20.0-44.0); MEAN CORPUSCULAR HEMOGLOBIN 30 PG (26.0-33.0); MEAN CORPUSCULAR HGB CONC 34 g/dl (31.0-36.0); MEAN CORPUSCULAR VOLUME 88 fL (80-96); MONOCYTES # (AUTO) 0.9 /CMM (0.1-1.30); MONOCYTES % (AUTO) 5.8 % (2.0-12.0); NEUTROPHILS # (AUTO) 12.1 /CMM (1.8-8.9); NEUTROPHILS % (AUTO) 81.2 % (43.0-81.0); PLATELET COUNT (AUTO) 243 /CMM (150-450); RDW COEFFICIENT OF VARIATION 14.3 (11.5-15.0); RED BLOOD CELL COUNT(AUTO) 5.09 MIL/uL (4.5-6.0); WHITE BLOOD COUNT (AUTO) 14.9 K/uL (4.3-11.0)
[2017-04-17 16:54] LABS: CALCIUM, SERUM 9.8 mg/dL (8.5-10.1); CHLORIDE 98 mmol/L (98-107); CREATININE 0.9 mg/dL (0.6-1.3); GLUCOSE 162 mg/dL (74-106); POTASSIUM 3.6 mmol/L (3.5-5.1); SODIUM SERUM 139 mmol/L (136-145); UREA NITROGEN, BLOOD 12 mg/dL (7-18)
[2017-04-17 17:00] LABS: CARBON DIOXIDE 40 mmol/L (21-32)
[2017-04-17 17:02] LABS: TROPONIN I < 0.017 ng/mL (0.00-0.056)
[2017-04-17 17:13] LABS: BILIRUBIN,TOTAL 0.7 mg/dL (0.2-1.0)
[2017-04-17 17:14] LABS: ALANINE AMINOTRANSFERASE 26 U/L (12-78); ALBUMIN 3.7 g/dL (3.4-5.0); ALKALINE PHOSPHATASE 69 U/L (46-116); ASPARTATE AMINOTRANSFERASE 17 U/L (15-37); B-TYPE NATRIURETIC PEPTIDE 194 PG/ML (0-125); BILIRUBIN,DIRECT 0.1 mg/dL (0.0-0.2); TOTAL PROTEIN, SERUM 7.8 g/dL (6.4-8.2)
[2017-04-17 17:35] LABS: ABG BASE EXCESS 10.5 mmol/L; ABG OXYGEN SATURATION 97.1 % (92.0-98.5); ABG PCO2 69.2 mmHg (35.0-45.0); ABG PH 7.369 (7.350-7.450); ABG PO2 106.9 mmHg (75.0-100.0); AaDO2 98.7 mmHg; COHb 1.6 % (0.5-1.5); MetHb 0.4 % (0.0-1.5); O2Hb 95.2 % (94.0-97.0); SITE, ABG Right Radial; VENT MODE, BG SM 6L
[2017-04-17] MEDS ORDERED: methylPREDNISolone SOD SUCC 125 MG/2ML VIAL ONE ×2 (17:59→23:19)
[2017-04-17] MEDS ORDERED: methylPREDNISolone SOD SUCC 125 MG/2ML VIAL IV ONE (18:00)
[2017-04-17] MEDS ORDERED: ALBUTEROL FS 2.5 MG/3 ML VIAL.NEB NEB ONE (18:00)
[2017-04-17] MEDS ORDERED: *INSULIN REGULAR(HUMULIN R)HUM 100 UNIT/ML VIAL SQ PRN (18:30)
[2017-04-17] MEDS ORDERED: ONDANSETRON HCL/PF 4 MG/2 ML VIAL IVP PRN (18:30)
[2017-04-17] MEDS ORDERED: LORAZEPAM INJ 2 MG/ML VIAL IV ONE ×2 (18:30→19:30)
[2017-04-17] MEDS ORDERED: MAG HYDROX/AL HYDROX/SIMETH 30 ML UDC PO PRN (18:30)
[2017-04-17] MEDS ORDERED: MAGNESIUM HYDROXIDE 30 ML UDC PO PRN (18:30)
[2017-04-17] MEDS ORDERED: Z GUARD REMEDY 2 OZ OINT TP PRN (18:30)
[2017-04-17] MEDS ORDERED: ACETAMINOPHEN 325 MG TABLET PO PRN (18:30)
[2017-04-17] MEDS ORDERED: INSULIN REGULAR, HUMAN 100 UNIT/ML 3 ML VIAL SQ PRN (18:30)
[2017-04-17] MEDS ORDERED: HYDROCODONE/APAP 5/325MG 1 EACH TABLET PO PRN (18:30)
[2017-04-17] MEDS ORDERED: DEXTROSE 50%-WATER 50 ML DISP.SYRIN IV PRN (18:30)
[2017-04-17] MEDS ORDERED: ALBUTEROL FS 2.5 MG/0.5 ML VIAL.NEB NEB PRN (18:30)
[2017-04-17] MEDS ORDERED: ZOLPIDEM TARTRATE 5 MG TABLET PO PRN (18:30)
--- NOTE | 2017-04-17 18:57 | NUR ---
REPORT GIVEN TO DOLORES FOR ADRIANA
[2017-04-17] MEDS ORDERED: LORAZEPAM 1 MG TABLET PO PRN (19:00)
--- NOTE | 2017-04-17 19:00 | NUR ---
PT APPEARS RESTLESS. PT IS ON BIPAP. 15, RT 16, FIO2 40%. DR. RIVERA NOTIFED RE: PT'S RESTLESSNESS.
[2017-04-17] MEDS ORDERED: LORAZEPAM INJ 2 MG/ML VIAL ONE ×2 (19:13→23:11)
--- NOTE | 2017-04-17 19:17 | NUR ---
PT REC'D ATIVAN ORDERED.
--- NOTE | 2017-04-17 19:22 | NUR ---
PT TRANSFERED TO BED #16 - TA AREA. REPORT GIVEN TO BURTON PEÑA FOR ADRIANA.
[2017-04-17] MEDS ORDERED: BUMETANIDE (1 MG) 1 MG TABLET PO SCH (20:30)
--- NOTE | 2017-04-17 20:37 | NUR ---
PT ANXIOUS. MEDICATED BY EARLIER SHIFT WITH ATIVAN. PT ON BI-PAP. CO2 - 69.2. DX COPD EXACERBATION. REPORT CALLED TO ICU. PREPARING PT TO TRANSFER.
--- NOTE | 2017-04-17 20:42 | NUR ---
PT GOING TO 253 ICU
--- NOTE | 2017-04-17 20:56 | NUR ---
PT REMAINS INTOLERANT OF BI-PAP. CONTACTED DR. POLLARD, HISTORIC SITE ADMINISTRATOR FOR DR. PALENCIA. DR. POLLARD SAID IF NOT TOLERATING BI-PAP, INTUBATE HIM. ER MD ORDERED A BLOOD GAS.
[2017-04-17] MEDS ORDERED: methylPREDNISolone SOD SUCC 125 MG/2ML VIAL IV SCH (21:00)
[2017-04-17] MEDS ORDERED: PREGABALIN 100 MG CAPSULE PO SCH (21:00)
--- NOTE | 2017-04-17 21:16 | NUR ---
ABG SHOWS CO2 GOING UP. PT TO BE INTUBATED. PT PULLED OUT HIS IV. NEW OPNE BEING PLACED+
--- NOTE | 2017-04-17 21:33 | NUR ---
H/L PLACED. PT INTUBATED AT 2129. INITIAL MEDS ETOMIDATE 30 AND SUCS 150. PUSHED AT 2127. INTUBATED WITH 71/2 ICELANDIC WITH LIP AT 23. VENT TIDAL VOL. 550, FIO2 40%. RATE 16. PEEP 5.
[2017-04-17] MEDS ORDERED: PROPOFOL 100 ML IV ONE (21:40)
--- NOTE | 2017-04-17 21:58 | NUR ---
PT COMBATIVE. STATED ON 20 MC PROPOFOL PER MD.
[2017-04-17] MEDS ORDERED: PROPOFOL 100 ML IV PRN (22:00)
[2017-04-17] MEDS ORDERED: BLOOD SUGAR DIAGNOSTIC 1 EACH STRIP VI SCH (22:00)
--- NOTE | 2017-04-17 22:15 | NUR ---
RECORDS ASSOCIATE INITIAL NOTE RECEIVED PT FROM ER NURSE. PT TRANSPORTED HERE BY NURSE, RT, AND EMT. PT INTUBATED AND SEDATED ON PROPOFOL. PT IS RESTRAINED FOR SAFETY. LUNG SOUNDS RHONCHI TO DIMINISHED. WITH ETT 7.5 24 CM AT LIP. VENT SETTINGS AC 16, TV 550, FIO2 40% PEEP 5. BOWEL SOUNDS PRESENT. SKIN INTACT. IV PATENT AND INTACT. BED IN LOW LOCKED POSITION. WILL CONTINUE TO MONITOR.
--- NOTE | 2017-04-17 22:32 | NUR ---
PT TRANSFERRED TO ICU.
[2017-04-17] MEDS ORDERED: LORAZEPAM INJ 2 MG/ML VIAL IV PRN (23:00)
[2017-04-17] MEDS: LORAZEPAM INJ 2 MG/ML VIAL IV PRN (23:13)
[2017-04-17] MEDS: PROPOFOL 100 ML IV PRN (23:14)
[2017-04-17] MEDS ORDERED: LEVOFLOXACIN 500 MG /D5W 100ML 100 ML IV ONE (23:18)
[2017-04-17] MEDS ORDERED: CLONIDINE HCL 0.1MG/24H PTWK 1 EA PATCH TD ONE (23:19)
[2017-04-17] MEDS: LEVOFLOXACIN 500 MG /D5W 100ML 500 MG in PREMIX 1 EA IV SCH (23:32)
[2017-04-17] MEDS: CLONIDINE HCL 0.1MG/24H PTWK 1 EA PATCH TD SCH (23:32)
[2017-04-17] MEDS: methylPREDNISolone SOD SUCC 40 MG/ML VIAL IV SCH (23:33)
[2017-04-17] MEDS ORDERED: LEVALBUTEROL HCL NEB 1.25 MG/0.5 ML VIAL.NEB ONE (23:38)
[2017-04-18] VITALS (92 sets, daily range): BP systolic 85–169; BP diastolic 34–124
--- NOTE | 2017-04-18 | NUR ---
SENIOR INSTRUCTIONAL DESIGNER PT IS ON VENT AND SEDATED. PT CONTINUES TO HAVE TWITCHING. PT PRESENTED WITH TWITCHING AND AFTER ATIVAN AND DIPRIVAN. DR POLLARD CALLED AND NOTIFIED, NEW ORDERS RECEIVED TO ADMINISTER HALDOL AND CALL DR POLLARD BACK IF TWITCHING CONTINUES.
[2017-04-18] MEDS ORDERED: PROPOFOL 100 ML IV ONE ×2 (00:34→01:47)
[2017-04-18] MEDS: PROPOFOL 100 ML IV PRN ×9 (00:38→22:12)
[2017-04-18] MEDS ORDERED: HALOPERIDOL LACTATE INJ 5 MG/ML VIAL ONE (00:55)
[2017-04-18] MEDS ORDERED: HALOPERIDOL LACTATE INJ 5 MG/ML VIAL IM ONE (01:00)
[2017-04-18] MEDS ORDERED: IPRATROPIUM NEB FS 0.5 MG/2.5 ML AMPUL.NEB ONE (01:11)
[2017-04-18] MEDS: IPRATROPIUM NEB FS 0.5 MG/2.5 ML AMPUL.NEB NEB SCH ×4 (01:12→19:57)
[2017-04-18 01:24] LABS: ABG BASE EXCESS 11.8 mmol/L; ABG OXYGEN SATURATION 92.6 % (92.0-98.5); ABG PCO2 77.8 mmHg (35.0-45.0); ABG PH 7.346 (7.350-7.450); ABG PO2 66.3 mmHg (75.0-100.0); AaDO2 129.4 mmHg; COHb 1.7 % (0.5-1.5); MetHb 0.6 % (0.0-1.5); O2Hb 90.5 % (94.0-97.0); PEEP,BG 5 cm H2O; SITE, ABG Left Radial; VT, ABG 550 mL
[2017-04-18] MEDS ORDERED: LEVALBUTEROL HCL NEB 1.25 MG/0.5 ML VIAL.NEB NEB SCH ×2 (01:30)
--- NOTE | 2017-04-18 01:30 | NUR ---
PROOF LOAD MECHANIC PT CONTINUES TO HAVE TWITCHING AND ACCESSORY MUSCLE USE IS NOTED. POST ABG ORDERED. RESULTS PROVIDED TO DR POLLARD. NEW ORDERS RECEIVED. WILL CARRY OUT AND CONTINUE TO MONITOR.
[2017-04-18] MEDS ORDERED: KETAMINE HCL (500MG/10ML) 50 MG/ML VIAL ONE (01:39)
[2017-04-18] MEDS ORDERED: LEVETIRACETAM (500MG) 500 MG/5 ML VIAL IV ONE (01:58)
[2017-04-18] MEDS ORDERED: ACETAMINOPHEN 650 MG/SUPP.RECT RC PRN (02:00)
[2017-04-18] MEDS ORDERED: LEVETIRACETAM (500MG) 1,000 MG in IV NS 0.9% 100 ML IV SCH (02:00)
--- NOTE | 2017-04-18 02:30 | NUR ---
EDITORIAL MANAGER PULMONARY CALLED REGARDING ABG RESULTS, SETTINGS CHANGED. RT NOTIFIED. NEW ORDERS FOR CXR AND ABG IN AM. WILL CONTINUE TO MONITOR.
--- NOTE | 2017-04-18 02:40 | NUR ---
EMERGENCY VEHICLE TECHNICIAN DR POLLARD AWARE OF VENT CHANGES. NEW ORDER FOR CT HEAD TO BE DONE PIA. PT CURRENTLY OFF OF SEDATION TO ASSESS NEURO STATUS. PT CONTINUES TO TWITCH BUT IT IS LESS AGGRESSIVE SINCE STARTING KEPPRA IV. WILL CONTINUE TO CLOSELY MONITOR.
[2017-04-18 05:07] LABS: HEMATOCRIT 46 % (39-51); LYMPHOCYTES # (AUTO) 0.7 /CMM (0.8-4.8); LYMPHOCYTES % (AUTO) 5.4 % (20.0-44.0); MEAN CORPUSCULAR HEMOGLOBIN 29 PG (26.0-33.0); MEAN CORPUSCULAR HGB CONC 32 g/dl (31.0-36.0); MEAN CORPUSCULAR VOLUME 89 fL (80-96); MONOCYTES # (AUTO) 0.1 /CMM (0.1-1.30); MONOCYTES % (AUTO) 1.1 % (2.0-12.0); NEUTROPHILS # (AUTO) 11.3 /CMM (1.8-8.9); NEUTROPHILS % (AUTO) 93.5 % (43.0-81.0); PLATELET COUNT (AUTO) 219 /CMM (150-450); RDW COEFFICIENT OF VARIATION 15.2 (11.5-15.0); RED BLOOD CELL COUNT(AUTO) 5.16 MIL/uL (4.5-6.0); WHITE BLOOD COUNT (AUTO) 12.1 K/uL (4.3-11.0)
[2017-04-18 05:29] LABS: D-DIMER 0.29 mg/L(FEU (0.17-0.50); INR 1.1 (0.87-1.13); PROTHROMBIN TIME 11.4 SECS (9.5-12.7)
[2017-04-18 05:38] LABS: ALANINE AMINOTRANSFERASE 28 U/L (12-78); ALBUMIN 3.5 g/dL (3.4-5.0); ALKALINE PHOSPHATASE 68 U/L (46-116); ASPARTATE AMINOTRANSFERASE 21 U/L (15-37); BILIRUBIN,TOTAL 0.9 mg/dL (0.2-1.0); CALCIUM, SERUM 9.7 mg/dL (8.5-10.1); CHLORIDE 102 mmol/L (98-107); CREATININE 0.9 mg/dL (0.6-1.3); GLUCOSE 181 mg/dL (74-106); MAGNESIUM 1.9 mg/dL (1.8-2.4); PHOSPHORUS 3.8 mg/dL (2.5-4.9); POTASSIUM 3.8 mmol/L (3.5-5.1); SODIUM SERUM 147 mmol/L (136-145); TOTAL PROTEIN, SERUM 7.5 g/dL (6.4-8.2); UREA NITROGEN, BLOOD 20 mg/dL (7-18)
[2017-04-18 05:49] LABS: CHOLESTEROL 232 mg/dL (<200); HDL CHOLESTEROL 64 mg/dL (40-60); LDL 139 mg/dL (0-99); THYROID STIMULATING HORMONE 0.304 uIU/mL (0.358-3.74); TRIGLYCERIDES 111 mg/dL (30-150); TROPONIN I < 0.017 ng/mL (0.00-0.056)
[2017-04-18 05:51] LABS: BAND % (MANUAL) 2 % (0.0-5.0); CARBON DIOXIDE 41 mmol/L (21-32); LYMPHOCYTES % (MANUAL) 6 % (16-48); MONOCYTES % (MANUAL) 2 % (0-11.0); NEUTROPHILS % (MANUAL) 90 (42-76)
[2017-04-18] MEDS ORDERED: methylPREDNISolone SOD SUCC 125 MG/2ML VIAL ONE (06:19)
[2017-04-18] MEDS: methylPREDNISolone SOD SUCC 40 MG/ML VIAL IV SCH ×4 (06:26→23:55)
--- NOTE | 2017-04-18 07:30 | NUR ---
ICU/RN PT IS INTUBATED ON THE VENT AC MODE.FIO2-40%.SAT O2-92%.V/S STABLE,AFEBRILE.NO PAIN REPORTED AT THIS TIME.PT IS ON 5 MCG OF PROPOFOL,AWAKE,ALERT,FOLLOWS COMMANDS.DIAPHORETIC. AND RESTLESS,AGITATED. DIPRIVAN INCREASED. BILATERAL SOFT WRIST RESTRAINS ON.F/C DRAINING WITH CLOUDY YELLOW URINE.SUCTION PROVIDED.REPOSITION FOR COMFORT.
--- NOTE | 2017-04-18 08:00 | NUR ---
ICU/RN SEDATION VACATION PROVIDED.PT IS AWAKE,ALERT,FOLLOWS COMMANDS.RESTLESS,TACHYPNEIC,AGITATED.WILL INCREASE DIPRIVAN.
[2017-04-18] MEDS ORDERED: VALSARTAN 80 MG TABLET PO SCH (09:00)
[2017-04-18] MEDS ORDERED: METFORMIN 500 MG TABLET PO SCH (09:00)
[2017-04-18] MEDS ORDERED: MISOPROSTOL 100 MCG TABLET PO SCH (09:00)
[2017-04-18] MEDS ORDERED: ICOSAPENT ETHYL 4 GM PO SCH (09:00)
[2017-04-18] MEDS ORDERED: SERTRALINE HCL 50 MG TABLET PO SCH (09:00)
[2017-04-18] MEDS ORDERED: EZETIMIBE 10 MG TABLET PO SCH (09:00)
[2017-04-18] MEDS ORDERED: POTASSIUM CHLORIDE 10 MEQ TABLET.SA PO SCH (09:00)
[2017-04-18] MEDS ORDERED: CARVEDILOL 12.5 MG TABLET PO SCH (09:00)
[2017-04-18] MEDS ORDERED: FLUTICASONE/VILANTEROL 1 EACH BLST.W.DEV IH SCH (09:00)
[2017-04-18] MEDS ORDERED: ATORVASTATIN 40 MG TABLET PO SCH (09:00)
[2017-04-18] MEDS ORDERED: FLUTICASONE/SALMETEROL DISKUS IH SCH (09:00)
[2017-04-18] MEDS ORDERED: TAMSULOSIN 0.4 MG CAP.SR.24H PO SCH (09:00)
[2017-04-18] MEDS ORDERED: Linaclotide (Linzess) 145 MCG PO SCH (09:00)
[2017-04-18] MEDS: LORAZEPAM INJ 2 MG/ML VIAL IV PRN ×2 (09:10→13:01)
--- NOTE | 2017-04-18 09:10 | NUR ---
ICU/RN PT IS STILL VERY RESTLESS.HAS CLONIC-TONIC SEIZURES.DIPRIVAN DOSE INCREASED AND ATIVAN 1 MG IV GIVEN ORDERED.REPOSITION FOR COMFORT.CONTINUE MONITORING.LEFT UPPER ARM MIDLINE INSERTED.
[2017-04-18] MEDS: FUROSEMIDE 40 MG/4 ML VIAL IV SCH ×2 (11:40→16:21)
[2017-04-18] MEDS ORDERED: POTASSIUM CHLORIDE 20 MEQ POWDER PACKET NG SCH (12:00)
[2017-04-18] MEDS: ENOXAPARIN SODIUM 40 MG/0.4 ML DISP.SYRIN SQ SCH (12:50)
--- NOTE | 2017-04-18 13:05 | NUR ---
ICU/RN DR VILLAFANA SEEN THE PT .PT HAS CLONIC -TONIC SEIZURES.ATIVAN 1 MG IV GIVEN ORDERED.PT IS 50 MCG OF DIPRIVAN.T-99.DIAPHORETIC.PM CARE PROVIDED.SUCTION PROVIDED. INCREASED FIO2-50%AND TV-600.CONTINUE MONITORING.
[2017-04-18] MEDS: ALBUTEROL FS 2.5 MG/0.5 ML VIAL.NEB NEB SCH ×2 (14:11→19:57)
--- NOTE | 2017-04-18 14:45 | NUR ---
ICU/RN PT IS SEDATED WITH DIPRIVAN .HAS CONTINUOS MYOCLONIC JERKS.MORPHINE SULFATE 4 MG IV GIVEN ORDERED.CONTINUE MONITORING
[2017-04-18] MEDS: MORPHINE SULFATE INJ 4 MG/ML DISP.SYRIN IV PRN (14:46)
[2017-04-18] MEDS ORDERED: DEXTROSE 50%-WATER 50 ML DISP.SYRIN IV PRN (15:00)
[2017-04-18] MEDS: BLOOD SUGAR DIAGNOSTIC 1 EACH STRIP IN SCH ×2 (17:04→23:53)
[2017-04-18] MEDS: LEVOFLOXACIN 500 MG /D5W 100ML 500 MG in PREMIX 1 EA IV SCH (22:14)
[2017-04-18] MEDS: INSULIN REGULAR, HUMAN 100 UNIT/ML 3 ML VIAL SQ PRN (23:53)
[2017-04-19] VITALS (42 sets, daily range): BP systolic 123–158; BP diastolic 65–95
--- NOTE | 2017-04-19 00:05 | NUR ---
COMMERCIAL LOAN REVIEWER DF PT ACCU CHECK OF 185 PT COVERED WITH REGULAR INSULIN PER SLIDING SCALE.VSS.PT SEDATED ON PROPOFOL@50MCG. PT RESPONSIVE TO TACTILE STIMULI WITHDRAWS TO IT.
[2017-04-19] MEDS: IPRATROPIUM NEB FS 0.5 MG/2.5 ML AMPUL.NEB NEB SCH ×4 (01:00→19:21)
[2017-04-19] MEDS: ALBUTEROL FS 2.5 MG/0.5 ML VIAL.NEB NEB SCH ×4 (01:00→19:21)
[2017-04-19] MEDS: PROPOFOL 100 ML IV PRN ×10 (01:20→23:24)
[2017-04-19] MEDS: MORPHINE SULFATE INJ 4 MG/ML DISP.SYRIN IV PRN (03:30)
--- NOTE | 2017-04-19 03:32 | NUR ---
SUPERINTENDENT TRANSMISSION DF PT WITH MYOCLONIC JERKING A CHRONIC CONDITION PER FAMILY. PT AWAKE,RESTLESS,DIAPHORETIC,FACIAL GRIMACING, ELEVATED BP OF 151/82 ADMIN MORPHINE 4MG IVP PRN PAIN.
[2017-04-19 05:10] LABS: BASOPHILS % (AUTO) 0.2 % (0.0-2.0); HEMATOCRIT 46 % (39-51); HEMOGLOBIN 15.1 g/dL (13.5-17.5); LYMPHOCYTES # (AUTO) 0.6 /CMM (0.8-4.8); LYMPHOCYTES % (AUTO) 6.2 % (20.0-44.0); MEAN CORPUSCULAR HEMOGLOBIN 29 PG (26.0-33.0); MEAN CORPUSCULAR HGB CONC 33 g/dl (31.0-36.0); MEAN CORPUSCULAR VOLUME 89 fL (80-96); MONOCYTES # (AUTO) 0.5 /CMM (0.1-1.30); MONOCYTES % (AUTO) 4.6 % (2.0-12.0); NEUTROPHILS # (AUTO) 9.2 /CMM (1.8-8.9); PLATELET COUNT (AUTO) 235 /CMM (150-450); RDW COEFFICIENT OF VARIATION 15.5 (11.5-15.0); RED BLOOD CELL COUNT(AUTO) 5.18 MIL/uL (4.5-6.0); WHITE BLOOD COUNT (AUTO) 10.4 K/uL (4.3-11.0)
[2017-04-19 05:19] LABS: TROPONIN I < 0.017 ng/mL (0.00-0.056)
[2017-04-19 05:57] LABS: BAND % (MANUAL) 2 % (0.0-5.0); LYMPHOCYTES % (MANUAL) 9 % (16-48); MONOCYTES % (MANUAL) 4 % (0-11.0); NEUTROPHILS % (MANUAL) 85 (42-76)
[2017-04-19] MEDS: INSULIN REGULAR, HUMAN 100 UNIT/ML 3 ML VIAL SQ PRN ×4 (06:39→23:33)
[2017-04-19] MEDS: BLOOD SUGAR DIAGNOSTIC 1 EACH STRIP IN SCH ×4 (06:41→23:32)
[2017-04-19] MEDS: methylPREDNISolone SOD SUCC 40 MG/ML VIAL IV SCH ×4 (06:41→23:31)
[2017-04-19] MEDS: FUROSEMIDE 40 MG/4 ML VIAL IV SCH ×2 (08:24→16:56)
[2017-04-19] MEDS: ENOXAPARIN SODIUM 40 MG/0.4 ML DISP.SYRIN SQ SCH (08:24)
[2017-04-19 08:36] LABS: ALANINE AMINOTRANSFERASE 27 U/L (12-78); ALBUMIN 3.4 g/dL (3.4-5.0); ALKALINE PHOSPHATASE 57 U/L (46-116); ASPARTATE AMINOTRANSFERASE 25 U/L (15-37); BILIRUBIN,TOTAL 0.6 mg/dL (0.2-1.0); CALCIUM, SERUM 9.5 mg/dL (8.5-10.1); CARBON DIOXIDE 38 mmol/L (21-32); CHLORIDE 103 mmol/L (98-107); CREATININE 1.2 mg/dL (0.6-1.3); GLUCOSE 179 mg/dL (74-106); MAGNESIUM 2.4 mg/dL (1.8-2.4); PHOSPHORUS 4.1 mg/dL (2.5-4.9); POTASSIUM 3.8 mmol/L (3.5-5.1); SODIUM SERUM 147 mmol/L (136-145); TOTAL PROTEIN, SERUM 7.3 g/dL (6.4-8.2); UREA NITROGEN, BLOOD 32 mg/dL (7-18)
--- NOTE | 2017-04-19 10:23 | NUR ---
REAL PROPERTY EVALUATOR NOTE 0720: Received patient sedated. With ETT to vent, tolerated settings. Noted with moderate amount of thin to thick yuen secretions when suctioned. With OGT clamped. CHRISTIE midline intact, on Diprivan @ 50mcg. PLASTIC MAKER restraints on for safety. Marcano cath intact, noted with clear yellow urine with sediments drained to BSD. 0800: S/E by Dr. Wilson, no new order at this time. 0900: Rendered sedation vacation, able to follow commands but noted with trying to pull out ETT, placed back on 50mcg of Diprivan. 0930: S/E by Certified Ethical Hacker, with recommendation of Glytrol @ 60. 1015: S/E by Dr. Almazan, with order to start on GT feeding. Lucian continue on diuretics today.
[2017-04-19 11:01] LABS: ABG BASE EXCESS 17.3 mmol/L; ABG OXYGEN SATURATION 94.1 % (92.0-98.5); ABG PCO2 68.1 mmHg (35.0-45.0); ABG PH 7.445 (7.350-7.450); ABG PO2 71.2 mmHg (75.0-100.0); AaDO2 208.7 mmHg; COHb 1.2 % (0.5-1.5); MetHb 0.6 % (0.0-1.5); O2Hb 92.4 % (94.0-97.0); PEEP,BG 5 cm H2O; SITE, ABG Right Radial; VT, ABG 600 mL
[2017-04-19] MEDS ORDERED: ACETAMINOPHEN 650 MG/20.3 ML UDC NG PRN (11:30)
--- NOTE | 2017-04-19 11:30 | NUR ---
WOODYARD CRANE OPERATOR NOTE S/E by Dr. Linares, no new order at this time.
[2017-04-19] MEDS: GLYTROL 1,000 ML BAG GT PRN (12:22)
--- NOTE | 2017-04-19 20:00 | NUR ---
TOBACCO SORTER - NOTES - PT IS INTUBATED ON THE VENT AC MODE.FIO2 50%, 02SAT 95%. V/S STABLE, AFEBRILE.PT IS ON 50 MCG OF PROPOFOL, SEDATED. BILATERAL SOFT WRIST RESTRAINS ON. PT HAS OGT WITH GLYTROL AT 60 ML/HR, NO RESIDUALS. F/C DRAINING WITH CLOUDY YELLOW URINE. SUCTION PROVIDED. PT HAS CHRISTIE MIDLINE AND R FA 20G IV. SKIN INTACT. REPOSITION FOR COMFORT. WILL CONTINUE TO MONITOR
[2017-04-19] MEDS: LORAZEPAM INJ 2 MG/ML VIAL IV PRN (21:39)
--- NOTE | 2017-04-19 21:47 | NUR ---
PT NOTED WITH MYOCLONIC JERKS, ATIVAN 1 MG GIVEN PER MD ORDER. WILL CONTINUE TO MONITOR
[2017-04-19] MEDS: LEVOFLOXACIN 500 MG /D5W 100ML 500 MG in PREMIX 1 EA IV SCH (22:30)
[2017-04-20] VITALS (37 sets, daily range): BP systolic 114–156; BP diastolic 65–91
[2017-04-20] MEDS: IPRATROPIUM NEB FS 0.5 MG/2.5 ML AMPUL.NEB NEB SCH ×4 (01:03→19:23)
[2017-04-20] MEDS: ALBUTEROL FS 2.5 MG/0.5 ML VIAL.NEB NEB SCH ×4 (01:03→19:23)
--- NOTE | 2017-04-20 01:11 | NUR ---
FULL BED BATH GIVEN, PT HR DECREASED TO 80S-90S, PT LOOKS COMFORTABLE, ALL LINENS CHANGED, TURNED AND REPOSITIONED
[2017-04-20] MEDS: PROPOFOL 100 ML IV PRN ×9 (01:24→23:29)
[2017-04-20] MEDS: BLOOD SUGAR DIAGNOSTIC 1 EACH STRIP IN SCH ×4 (06:02→23:52)
[2017-04-20] MEDS: INSULIN REGULAR, HUMAN 100 UNIT/ML 3 ML VIAL SQ PRN ×4 (06:02→23:51)
[2017-04-20] MEDS: methylPREDNISolone SOD SUCC 40 MG/ML VIAL IV SCH ×4 (06:02→23:29)
[2017-04-20 08:14] LABS: BASOPHILS % (AUTO) 0.1 % (0.0-2.0); HEMATOCRIT 49 % (39-51); HEMOGLOBIN 15.9 g/dL (13.5-17.5); LYMPHOCYTES # (AUTO) 0.8 /CMM (0.8-4.8); LYMPHOCYTES % (AUTO) 7.7 % (20.0-44.0); MEAN CORPUSCULAR HEMOGLOBIN 29 PG (26.0-33.0); MEAN CORPUSCULAR HGB CONC 32 g/dl (31.0-36.0); MEAN CORPUSCULAR VOLUME 89 fL (80-96); MONOCYTES # (AUTO) 0.7 /CMM (0.1-1.30); MONOCYTES % (AUTO) 6.9 % (2.0-12.0); NEUTROPHILS # (AUTO) 8.9 /CMM (1.8-8.9); NEUTROPHILS % (AUTO) 85.3 % (43.0-81.0); PLATELET COUNT (AUTO) 218 /CMM (150-450); RDW COEFFICIENT OF VARIATION 15.4 (11.5-15.0); RED BLOOD CELL COUNT(AUTO) 5.52 MIL/uL (4.5-6.0); WHITE BLOOD COUNT (AUTO) 10.4 K/uL (4.3-11.0)
[2017-04-20] MEDS: PROSOURCE / PROSTAT (PYXIS) 30 ML UDC GT SCH ×3 (08:33→16:04)
[2017-04-20 08:35] LABS: ALBUMIN 3.6 g/dL (3.4-5.0); BILIRUBIN,TOTAL 0.7 mg/dL (0.2-1.0); CALCIUM, SERUM 9.6 mg/dL (8.5-10.1); CREATININE 1.1 mg/dL (0.6-1.3); MAGNESIUM 2.5 mg/dL (1.8-2.4); PHOSPHORUS 4.8 mg/dL (2.5-4.9); POTASSIUM 3.6 mmol/L (3.5-5.1); TOTAL PROTEIN, SERUM 7.6 g/dL (6.4-8.2)
[2017-04-20] MEDS: ENOXAPARIN SODIUM 40 MG/0.4 ML DISP.SYRIN SQ SCH (08:38)
[2017-04-20] MEDS: FUROSEMIDE 40 MG/4 ML VIAL IV SCH ×2 (08:38→16:04)
[2017-04-20] MEDS ORDERED: IV NS 0.9% 1,000 ML IV PRN (09:00)
[2017-04-20] MEDS: GLYTROL 1,000 ML BAG GT PRN (11:07)
[2017-04-20 16:27] LABS: ABG BASE EXCESS 12.7 mmol/L; ABG OXYGEN SATURATION 92.8 % (92.0-98.5); ABG PCO2 66.9 mmHg (35.0-45.0); ABG PH 7.406 (7.350-7.450); ABG PO2 67.1 mmHg (75.0-100.0); AaDO2 214.1 mmHg; COHb 0.9 % (0.5-1.5); MetHb 0.5 % (0.0-1.5); O2Hb 91.5 % (94.0-97.0); PEEP,BG 5 cm H2O; SITE, ABG Right Radial; VT, ABG 600 mL
--- NOTE | 2017-04-20 20:16 | NUR ---
received pt from day shift, sedated on Diprivan at 50mcg, SR, on the vent, lungs congested/diminished, no edema, OG to feeding tolerates well, f/c good urine output, restraints on, v/s stable, no pain, pt turned and repositioned.
[2017-04-20] MEDS: LEVOFLOXACIN 500 MG /D5W 100ML 500 MG in PREMIX 1 EA IV SCH (23:29)
[2017-04-21] VITALS (35 sets, daily range): BP systolic 112–141; BP diastolic 61–88
--- NOTE | 2017-04-21 00:15 | NUR ---
pt is resting in the bed, sedated on Diprivan at 50mcg, v/s stable, no pain, pt turned and repositioned q2hrs.
[2017-04-21] MEDS: ALBUTEROL FS 2.5 MG/0.5 ML VIAL.NEB NEB SCH ×5 (01:18→19:52)
[2017-04-21] MEDS: IPRATROPIUM NEB FS 0.5 MG/2.5 ML AMPUL.NEB NEB SCH ×5 (01:18→19:52)
[2017-04-21] MEDS: PROPOFOL 100 ML IV PRN ×9 (02:16→23:35)
--- NOTE | 2017-04-21 04:10 | NUR ---
pt is resting in the bed, no acute distress overnight, sedated on Diprivan at 60mcg, SR, tolerates feeding, good urine output, v/s stable, no pain, pt cleaned, changed and repositioned q2hrs.
[2017-04-21 04:57] LABS: BASOPHILS % (AUTO) 0.3 % (0.0-2.0); HEMATOCRIT 48 % (39-51); HEMOGLOBIN 15.9 g/dL (13.5-17.5); LYMPHOCYTES # (AUTO) 0.6 /CMM (0.8-4.8); LYMPHOCYTES % (AUTO) 6.8 % (20.0-44.0); MEAN CORPUSCULAR HEMOGLOBIN 29 PG (26.0-33.0); MEAN CORPUSCULAR HGB CONC 33 g/dl (31.0-36.0); MEAN CORPUSCULAR VOLUME 89 fL (80-96); MONOCYTES # (AUTO) 0.7 /CMM (0.1-1.30); MONOCYTES % (AUTO) 7.2 % (2.0-12.0); NEUTROPHILS # (AUTO) 8.2 /CMM (1.8-8.9); NEUTROPHILS % (AUTO) 85.7 % (43.0-81.0); PLATELET COUNT (AUTO) 212 /CMM (150-450); RDW COEFFICIENT OF VARIATION 15.2 (11.5-15.0); RED BLOOD CELL COUNT(AUTO) 5.42 MIL/uL (4.5-6.0); WHITE BLOOD COUNT (AUTO) 9.5 K/uL (4.3-11.0)
[2017-04-21] MEDS: methylPREDNISolone SOD SUCC 40 MG/ML VIAL IV SCH ×4 (05:14→23:54)
[2017-04-21 05:57] LABS: ALBUMIN 3.5 g/dL (3.4-5.0); BILIRUBIN,TOTAL 0.8 mg/dL (0.2-1.0); CALCIUM, SERUM 9.7 mg/dL (8.5-10.1); MAGNESIUM 2.5 mg/dL (1.8-2.4); POTASSIUM 3.7 mmol/L (3.5-5.1); TOTAL PROTEIN, SERUM 7.6 g/dL (6.4-8.2)
[2017-04-21] MEDS: INSULIN REGULAR, HUMAN 100 UNIT/ML 3 ML VIAL SQ PRN ×4 (06:11→23:57)
[2017-04-21] MEDS: BLOOD SUGAR DIAGNOSTIC 1 EACH STRIP IN SCH ×3 (06:11→17:28)
[2017-04-21] MEDS ORDERED: ACETAMINOPHEN 650 MG/20.3 ML UDC NG PRN (08:00)
[2017-04-21 08:15] LABS: ABG BASE EXCESS 14.7 mmol/L; ABG OXYGEN SATURATION 91.1 % (92.0-98.5); ABG PH 7.416 (7.350-7.450); ABG PO2 60.5 mmHg (75.0-100.0); AaDO2 218.4 mmHg; COHb 0.9 % (0.5-1.5); MetHb 0.6 % (0.0-1.5); O2Hb 89.7 % (94.0-97.0); SITE, ABG Right Radial
[2017-04-21] MEDS: FUROSEMIDE 40 MG/4 ML VIAL IV SCH ×2 (08:15→17:28)
[2017-04-21] MEDS: MORPHINE SULFATE INJ 4 MG/ML DISP.SYRIN IV PRN ×2 (08:16→16:25)
[2017-04-21] MEDS: ENOXAPARIN SODIUM 40 MG/0.4 ML DISP.SYRIN SQ SCH (08:16)
[2017-04-21] MEDS: PROSOURCE / PROSTAT (PYXIS) 30 ML UDC GT SCH ×3 (08:16→17:28)
--- NOTE | 2017-04-21 09:16 | NUR ---
TITRATING DIPRIVAN DOWN FOR SEDATION VACATION. DR. VILLAFANA ON THE UNIT, REPORTED TO HIM THE MORNING ABG ORDERS TO TITRATE FIO2 FROM 50% TO 60%, ORDERS PLACED, RT NOTIFIED.
--- NOTE | 2017-04-21 09:42 | NUR ---
SEDATION TITRATED DOWN: AT 10MCG PT IS OPENING EYES TO VERBAL STIMULI, TRACKS VERBAL CUES, ABLE TO SQUEEZE HANDS ALTHOUGH HE WEAK HE FOLLOWS COMMANDS OCCITAN TRANSLATION UTILIZED FOR COMMANDS. RESTLESS BITING AT TUBE AND SHIFTING HIPS TO GET LOWER IN THE BED. DR. VILLAFANA AT BEDSIDE SEE'S PT, STATES HE IS NOT READY FOR WEAN TODAY. WILL TITRATE UP SLOWLY FOR APPROPRIATE SEDATION.
[2017-04-21] MEDS: LORAZEPAM INJ 2 MG/ML VIAL IV PRN (09:54)
--- NOTE | 2017-04-21 20:00 | NUR ---
EDGING MACHINE SETTER - REC'D PT. VENTED W/VENT SETTINGS AT AC-12,TV-600,60% AND PEEP OF 5. PT. HAS CRACKLES/RHONCHI AUSC. CHARLES CATH TO GRAVITY. OGT W/GLYTROL INFUSING AT 60CC/HR. DIPRIVAN GTT. AT 50MCG/KG/MIN. CONT. POC.
[2017-04-21] MEDS: LEVOFLOXACIN (500MG) 500 MG TABLET PO SCH (23:38)
[2017-04-22] VITALS (29 sets, daily range): BP systolic 105–159; BP diastolic 56–91
[2017-04-22] MEDS: BLOOD SUGAR DIAGNOSTIC 1 EACH STRIP IN SCH ×5 (00:01→23:08)
[2017-04-22] MEDS: MORPHINE SULFATE INJ 4 MG/ML DISP.SYRIN IV PRN (00:33)
--- NOTE | 2017-04-22 01:00 | NUR ---
PAYROLL ASSOCIATE - PT.IS ANDERSON'S. PT.IS IN BILAT.SOFT WRIST RESTRAINTS PER SAFETY PROTOCOL. MSO4-4MG IVP WAS ADM. BY ABSTRACT CHECKERBURTON MARIE. MONITORED CLOSELY.
[2017-04-22] MEDS: ALBUTEROL FS 2.5 MG/0.5 ML VIAL.NEB NEB SCH ×4 (01:41→19:27)
[2017-04-22] MEDS: IPRATROPIUM NEB FS 0.5 MG/2.5 ML AMPUL.NEB NEB SCH ×4 (01:41→19:27)
[2017-04-22] MEDS: PROPOFOL 100 ML IV PRN ×3 (02:43→06:22)
[2017-04-22] MEDS: GLYTROL 1,000 ML BAG GT PRN (03:08)
[2017-04-22 05:19] LABS: HEMATOCRIT 49 % (39-51); HEMOGLOBIN 15.8 g/dL (13.5-17.5); LYMPHOCYTES # (AUTO) 0.6 /CMM (0.8-4.8); LYMPHOCYTES % (AUTO) 7.2 % (20.0-44.0); MEAN CORPUSCULAR HEMOGLOBIN 29 PG (26.0-33.0); MEAN CORPUSCULAR HGB CONC 32 g/dl (31.0-36.0); MEAN CORPUSCULAR VOLUME 90 fL (80-96); MONOCYTES # (AUTO) 0.5 /CMM (0.1-1.30); MONOCYTES % (AUTO) 6.4 % (2.0-12.0); NEUTROPHILS # (AUTO) 7.3 /CMM (1.8-8.9); NEUTROPHILS % (AUTO) 86.4 % (43.0-81.0); PLATELET COUNT (AUTO) 194 /CMM (150-450); RDW COEFFICIENT OF VARIATION 15.1 (11.5-15.0); RED BLOOD CELL COUNT(AUTO) 5.52 MIL/uL (4.5-6.0); WHITE BLOOD COUNT (AUTO) 8.5 K/uL (4.3-11.0)
[2017-04-22 05:47] LABS: CALCIUM, SERUM 9.7 mg/dL (8.5-10.1); POTASSIUM 3.3 mmol/L (3.5-5.1)
[2017-04-22] MEDS: methylPREDNISolone SOD SUCC 40 MG/ML VIAL IV SCH ×4 (06:22→23:09)
--- NOTE | 2017-04-22 06:30 | NUR ---
SPRING COILER - PT'S FIO2 WAS TITRATED DOWN TO 50% AROUND 4AM. NO OTHER CHANGES NOTED. CO2 WAS PHONED BY LAB. LEVEL AT 45. POSSIBLE WEANING TODAY. REPORT WILL BE ENDORSED TO AILEEN MANRIQUE. CONT. POC.
[2017-04-22] MEDS: INSULIN REGULAR, HUMAN 100 UNIT/ML 3 ML VIAL SQ PRN ×4 (06:32→23:10)
[2017-04-22] MEDS: PROSOURCE / PROSTAT (PYXIS) 30 ML UDC GT SCH (08:18)
[2017-04-22] MEDS: FUROSEMIDE 40 MG/4 ML VIAL IV SCH ×2 (08:18→17:09)
[2017-04-22] MEDS: ENOXAPARIN SODIUM 40 MG/0.4 ML DISP.SYRIN SQ SCH (08:19)
[2017-04-22] MEDS ORDERED: ERGOCALCIFEROL (VITAMIN D 2) 50,000 UNIT CAPSULE PO SCH (09:00)
[2017-04-22] MEDS ORDERED: DC PROPOFOL WHEN EXTUBATED XX PRN (09:00)
[2017-04-22] MEDS ORDERED: POTASSIUM CHLORIDE 20 MEQ POWDER PACKET NG SCH (09:30)
[2017-04-22 09:47] LABS: ABG BASE EXCESS 16.4 mmol/L; ABG OXYGEN SATURATION 92.5 % (92.0-98.5); ABG PCO2 79.7 mmHg (35.0-45.0); ABG PH 7.388 (7.350-7.450); ABG PO2 68.5 mmHg (75.0-100.0); AaDO2 198.3 mmHg; COHb 0.5 % (0.5-1.5); MetHb 0.4 % (0.0-1.5); O2Hb 91.7 % (94.0-97.0); PEEP,BG 5 cm H2O; SITE, ABG Right Radial; VENT MODE, BG SIMV 4 PS 12
--- NOTE | 2017-04-22 11:54 | NUR ---
DATA SECURITY ADMINISTRATOR NOTE 0720: Received patient sedated. With ETT to vent, tolerated settings well. No respiratory distress noted at this time. No S/S discomfort at this time. Noted with moderate amount of thin to thick yuen secretions when suctioned. With OGT intact, feeding tolerated well, noted with 5mL residuals. Kept HOB elevated. With CHRISTIE midline intact. On Diprivan @ 50mcg. 0900: RT placed on SIMV mode as ordered. Patient awake and able to follow commands. 1000: ABG result in, Dr. Saravia in the unit aware, with order to extubate. Patient tolerated procedure well. Placed on 6LPM of O2 via NC, 85%, Dr. Saravia said to give some more time. 1015: 91% on 6LPM, will titrate as able. 1150: S/E by Dr. Calvillo, will start on Cardiac diet. 89% on 4LPM of O2 via NC.
[2017-04-22 12:55] LABS: ABG BASE EXCESS 16.7 mmol/L; ABG OXYGEN SATURATION 86.4 % (92.0-98.5); ABG PCO2 70.6 mmHg (35.0-45.0); ABG PH 7.433 (7.350-7.450); AaDO2 123.8 mmHg; COHb 0.5 % (0.5-1.5); MetHb 0.2 % (0.0-1.5); O2Hb 85.8 % (94.0-97.0); SITE, ABG Right Radial; VENT MODE, BG N/C
--- NOTE | 2017-04-22 13:15 | NUR ---
DREDGE MASTER NOTE Dr. aSravia aware for the repeat ABG post extubation, patient on 4LPM. Obtained order to keep on 5LPM and ABG in am.
--- NOTE | 2017-04-22 18:24 | NUR ---
PRISON OFFICER NOTE No any significant changes. Remained on 5LPM of O2 via NC, tolerated well. Sat 89% above. Tolerated diet at this time. Sitiing on the edge of the bed. Clarified with Dr. Saravia re: Bipap setting 26/09.Patient requested to remove Marcano cath, placed condom cath but dislodged x3, able to use urinals, continent, encouraged to call nurse for assistance if needed. CHRISTIE midline intact. ST 100's. Continue Lasix and Solumedrol as ordered. Will endorse to next shift.
--- NOTE | 2017-04-22 19:10 | NUR ---
HAM MARKER INITIAL NOTE RECEIVED PATIENT SITTING AT EDGE OF BED, PATIENT WITH NO RESPIRATORY DISTRESS, ON 5LPM OF O2 VIA NC, RESPIRATION IS EVEN AND UNLABORED. PATIENT OBSERVED WITH ADL COMPLETION, PATIENT NOTED TO DESATURATED DOWN TO 82-84% WITH ACTIVITY, REST PERIODS ENCOURAGED WITH GOOD HELP. OCCASIONAL COUGH NOTED, ABLE TO EXPECTORATE, EXPIRATORY WHEEZING AND CONGESTION APPRECIATED. GOOD PO INTAKE NOTED. ASSISTED WITH ADLS NEEDED. DENIES ANY PAIN AND DISCOMFORT. CHRISTIE MIDLINE AND R FOREARM IV ACCESS INTACT AND PATENT, NO SIGNS OF INFILTRATION. PATIENT'S NEEDS ANTICIPATED AND MET. SAFETY AND COMFORT ENSURED. BED IN LOW AND LOCKED POSITION. CALL LIGHT IN REACH. WILL MONITOR CLOSELY.
[2017-04-22] MEDS: LEVOFLOXACIN (500MG) 500 MG TABLET PO SCH (23:08)
--- NOTE | 2017-04-22 23:38 | NUR ---
PT PLACED ON NOC BIPAP. TOLERAING SETTINGS.
[2017-04-23] VITALS (16 sets, daily range): BP systolic 100–165; BP diastolic 46–89
--- NOTE | 2017-04-23 00:30 | NUR ---
ATM TECHNICIAN NOTE PATIENT PRIOR TO BIPAP PLACEMENT ON SLEEPING HOURS NOTED TO HAVE O2 SATURATION OF 85-88% ON 5LPM OF O2 VIA NC. WITH NOCTURNAL BIPAP PLACE, PATIENT'S SATURATION MAINTAINED AT 92-94%. PATIENT COMPLAINING OF DISCOMFORT WITH THE MASK, PROVIDED PATIENT WITH HEALTH EDUCATION NEEDED, PATIENT ABLE TO COMPLY WITH USE OF BIPAP. ON CLOSE MONITORING. COMFORT ENSURED.
[2017-04-23] MEDS: IPRATROPIUM NEB FS 0.5 MG/2.5 ML AMPUL.NEB NEB SCH ×3 (01:07→19:10)
[2017-04-23] MEDS: ALBUTEROL FS 2.5 MG/0.5 ML VIAL.NEB NEB SCH ×3 (01:07→19:10)
[2017-04-23 04:29] LABS: BASOPHILS % (AUTO) 0.2 % (0.0-2.0); HEMATOCRIT 49 % (39-51); HEMOGLOBIN 15.9 g/dL (13.5-17.5); LYMPHOCYTES # (AUTO) 1.1 /CMM (0.8-4.8); LYMPHOCYTES % (AUTO) 6.7 % (20.0-44.0); MEAN CORPUSCULAR HEMOGLOBIN 29 PG (26.0-33.0); MEAN CORPUSCULAR HGB CONC 32 g/dl (31.0-36.0); MEAN CORPUSCULAR VOLUME 90 fL (80-96); MONOCYTES # (AUTO) 0.8 /CMM (0.1-1.30); MONOCYTES % (AUTO) 4.8 % (2.0-12.0); NEUTROPHILS % (AUTO) 88.3 % (43.0-81.0); PLATELET COUNT (AUTO) 208 /CMM (150-450); RDW COEFFICIENT OF VARIATION 14.5 (11.5-15.0); RED BLOOD CELL COUNT(AUTO) 5.45 MIL/uL (4.5-6.0); WHITE BLOOD COUNT (AUTO) 15.9 K/uL (4.3-11.0)
[2017-04-23 04:51] LABS: CALCIUM, SERUM 9.4 mg/dL (8.5-10.1); CREATININE 0.9 mg/dL (0.6-1.3); POTASSIUM 3.8 mmol/L (3.5-5.1)
[2017-04-23] MEDS: BLOOD SUGAR DIAGNOSTIC 1 EACH STRIP IN SCH ×4 (05:27→22:12)
[2017-04-23] MEDS: methylPREDNISolone SOD SUCC 40 MG/ML VIAL IV SCH ×4 (05:27→23:50)
[2017-04-23] MEDS: INSULIN REGULAR, HUMAN 100 UNIT/ML 3 ML VIAL SQ PRN ×3 (05:28→17:17)
--- NOTE | 2017-04-23 05:32 | NUR ---
TAKEN OFF BIPAP. PLACED ON NC 5L
--- NOTE | 2017-04-23 05:44 | NUR ---
RN NOTES RECEIVED CALL FROM YAMILKA FROM LAB. PATIENT'S CO2 REPORTED TO BE 41, TRENDING DOWN. CN MADE AWARE. ON CLOSE MONITORING. WILL ENDORSE.
--- NOTE | 2017-04-23 06:21 | NUR ---
HEEL SEAT FLAP STAPLER CLOSING NOTES PATIENT WITH NO ACUTE DISTRESS OBSERVED OVERNIGHT. PATIENT ON 5LPM OF O2 VIA NC IS WITH BORDERLINE O2 SATURATION IN THE 88-89%. HOB ELEVATED TOLERATED. PATIENT ABLE TO VOID FREELY USING URINAL WITH NO DIFFICULTY AND NO RETENTION NOTED. PATIENT'S NEEDS ANTICIPATED AND MET AT ALL TIMES. ALL DUE MEDS GIVEN ORDERED. AM LABS DRAWN. SAFETY AND COMFORT ENSURED. CALL LIGHT IN REACH. WILL ENDORSE ACCORDINGLY FOR CONTINUITY OF CARE. Addendum: 04/23/17 at 0633 by JAMES VIRAMONTES RN SR ON TELE WITH NO DISTRESS, HR OF 86.
--- NOTE | 2017-04-23 07:30 | NUR ---
CLOTH MEASURER RECEIVED PATIENT AWAKE ON 6 LITERS NASAL CANNULA SATURATING 90% ALERT AWAKE ORIENTED X 3 AFEBRILE PLACED ON SEMI FOWLERS POSITION DYSPNEA NOTED AT TIMES PATIENT WANTED TO BE PUT ON FACE MASK, MONITORED SATURATION MONITORED CLOSELY
[2017-04-23] MEDS ORDERED: DEXTROSE 50%-WATER 50 ML DISP.SYRIN IV PRN (08:00)
[2017-04-23] MEDS: FUROSEMIDE 40 MG/4 ML VIAL IV SCH ×2 (08:26→17:15)
[2017-04-23] MEDS: ENOXAPARIN SODIUM 40 MG/0.4 ML DISP.SYRIN SQ SCH (08:26)
--- NOTE | 2017-04-23 10:30 | NUR ---
MANUFACTURING OPERATIONS MANAGER REPORT GIVEN TO KEITH MANRIQUE V/S WNL NO COMPLAINTS AT THE MOMENT 1150 BROUGHT TO [facility] CONNECTED TO DIAMOND BROKER AND 02 TANK ENDORSED TO NOD
--- NOTE | 2017-04-23 12:00 | NUR ---
RN NOTES RECEIVED PT. PT TRANSFERRED FROM ICU. A/OX4. PT HAS SIGNS OF SOB, CURRENTLY O2 SAT IS 91%. PT IS ON 5L O2 VIA NC W/ HUMIDIFIER. PT REPORTS NO PAIN. IV ACCESS LOCATED ON LEFT UPPER ARM MIDLINE, SL. SAFETY MEASURES IN PLACE, CALL LIGHT WITHIN REACH. BED LOWERED TO LOWEST POSITION AND SIDE RAILS RAISED X2. WILL CONTINUE TO MONITOR.
--- NOTE | 2017-04-23 19:01 | NUR ---
RN CLOSING NOTES PT IS IN BED RESTING. A/OX4. NO S/S OF RESPIRATORY DISTRESS OR SOB. PT IS ON O2 5L VIA NC. RIGHT FOREARM IV ACCESS DISLODGED AND REMOVED. CHRISTIE MIDLINE REMAINS INTACT AND PATENT. SAFETY MEASURES IN PLACE, CALL LIGHT WITHIN REACH. BED LOWERED TO LOWEST POSITION AND SIDE RAILS RAISED X2. WILL ENDORSE TO MACHINE SETTER SHEET METAL FOR ADRIANA.
[2017-04-23] MEDS: LEVOFLOXACIN (500MG) 500 MG TABLET PO SCH (22:12)
[2017-04-23] MEDS: *INSULIN REGULAR(HUMULIN R)HUM 100 UNIT/ML VIAL SQ PRN (22:17)
[2017-04-23] MEDS: MORPHINE SULFATE INJ 4 MG/ML DISP.SYRIN IV PRN (22:22)
[2017-04-23] MEDS: LORAZEPAM INJ 2 MG/ML VIAL IV PRN (22:28)
[2017-04-23] MEDS ORDERED: ZOLPIDEM TARTRATE 5 MG TABLET ONE (23:35)
[2017-04-24] VITALS: BP 106/68
[2017-04-24] MEDS ORDERED: ZOLPIDEM TARTRATE 5 MG TABLET PO ONE
[2017-04-24] MEDS: IPRATROPIUM NEB FS 0.5 MG/2.5 ML AMPUL.NEB NEB SCH ×4 (01:44→19:33)
[2017-04-24] MEDS: ALBUTEROL FS 2.5 MG/0.5 ML VIAL.NEB NEB SCH ×4 (01:44→19:33)
[2017-04-24 04:00] VITALS: BP 127/70
[2017-04-24] MEDS: methylPREDNISolone SOD SUCC 40 MG/ML VIAL IV SCH ×2 (06:10→12:34)
[2017-04-24 07:53] LABS: BASOPHILS % (AUTO) 0.1 % (0.0-2.0); EOSINOPHILS % (AUTO) 0.1 % (0.0-6.0); HEMATOCRIT 48 % (39-51); LYMPHOCYTES # (AUTO) 1.7 /CMM (0.8-4.8); LYMPHOCYTES % (AUTO) 10.5 % (20.0-44.0); MEAN CORPUSCULAR HEMOGLOBIN 29 PG (26.0-33.0); MEAN CORPUSCULAR HGB CONC 33 g/dl (31.0-36.0); MEAN CORPUSCULAR VOLUME 88 fL (80-96); MONOCYTES # (AUTO) 1.3 /CMM (0.1-1.30); MONOCYTES % (AUTO) 7.7 % (2.0-12.0); NEUTROPHILS # (AUTO) 13.5 /CMM (1.8-8.9); NEUTROPHILS % (AUTO) 81.6 % (43.0-81.0); PLATELET COUNT (AUTO) 169 /CMM (150-450); RDW COEFFICIENT OF VARIATION 14.8 (11.5-15.0); RED BLOOD CELL COUNT(AUTO) 5.45 MIL/uL (4.5-6.0); WHITE BLOOD COUNT (AUTO) 16.6 K/uL (4.3-11.0)
[2017-04-24 08:00] VITALS: BP 121/80
--- NOTE | 2017-04-24 08:00 | NUR ---
television camera operator note patent in bed . all needs attended, on 02 via nc, no sob at this time, on tele monitor sr 81 , lt upper arm mid line in place, no s\s infection noted will cont to monitor closely , plan of care discussed with patent, call light within reach
[2017-04-24 08:07] LABS: CALCIUM, SERUM 9.5 mg/dL (8.5-10.1); CREATININE 0.8 mg/dL (0.6-1.3); POTASSIUM 3.4 mmol/L (3.5-5.1)
[2017-04-24] MEDS: FUROSEMIDE 40 MG/4 ML VIAL IV SCH (08:39)
[2017-04-24] MEDS: ENOXAPARIN SODIUM 40 MG/0.4 ML DISP.SYRIN SQ SCH (08:40)
[2017-04-24] MEDS: *INSULIN REGULAR(HUMULIN R)HUM 100 UNIT/ML VIAL SQ PRN ×3 (08:43→17:23)
[2017-04-24] MEDS: BLOOD SUGAR DIAGNOSTIC 1 EACH STRIP IN SCH ×4 (08:45→22:15)
--- NOTE | 2017-04-24 09:52 | NUR ---
telehealth director note with pt at this time ,able to ambulate well
[2017-04-24] MEDS: FUROSEMIDE 40 MG TABLET PO SCH (11:25)
[2017-04-24 12:00] VITALS: BP 118/82
[2017-04-24] MEDS ORDERED: POTASSIUM CHLORIDE 20 MEQ TAB.PRT.SR PO SCH (12:00)
--- NOTE | 2017-04-24 13:22 | NUR ---
BASS MECHANISM MAKER NOTE WITH PT AGAIN, USING A STAIRS ,WILL CONT TO MONITOR CLOSELY Addendum: 04/24/17 at 1325 by AKHIL CUNNINGHAM RN ON BREATHING TX ORDERED BY RT
--- NOTE | 2017-04-24 15:49 | NUR ---
MS RN NOTE PER DR PRICE OK TO D\C TELE MONITOR ,OK TO TRANSFER TO [facility] , PATIENT NONCOMPLIANT TRYING TO REMOVE TELE MONITOR AT ALL TIME
[2017-04-24 16:00] VITALS: BP 118/82
--- NOTE | 2017-04-24 19:17 | NUR ---
MS RN NOTE C\O DRYNESS BOTH EYES ,CALLED DR PRICE WITH ORDER TO GET ARTIFICIAL EYE DROP ORDERED
[2017-04-24] MEDS ORDERED: POLYVINYL ALCOHOL 15 ML BOTTLE EACHEYE PRN (19:30)
[2017-04-24 20:00] VITALS: BP 105/54
--- NOTE | 2017-04-24 20:00 | NUR ---
RN NOTES RECEIVED PATIENT SITTING AT THE SIDE OF THE BED WITH NO DISTRESS NOTED. BREATHING EVEN AND UNLABORED. NO COMPLAINT OF PAIN OF THIS TIME. ALERT AND ORIENTED. ABLE TO VERBALLY COMMUNICATE NEEDS. NON COMPLIANT WITH 02 VIA NASAL CANNULA. 02SAT 96% EVEN WITHOUT OXYGEN. AMBULATORY. VITAL SIGNS WNL. KEPT CLEAN AND DRY. WILL CONTINUE TO MONITOR.
[2017-04-24] MEDS: INSULIN REGULAR, HUMAN 100 UNIT/ML 3 ML VIAL SQ PRN (22:10)
[2017-04-24] MEDS: MORPHINE SULFATE INJ 4 MG/ML DISP.SYRIN IV PRN (22:23)
[2017-04-24] MEDS: LEVOFLOXACIN (500MG) 500 MG TABLET PO SCH (22:27)
[2017-04-24] MEDS: CLONIDINE HCL 0.1MG/24H PTWK 1 EA PATCH TD SCH (22:30)
[2017-04-25] MEDS: LORAZEPAM INJ 2 MG/ML VIAL IV PRN (01:27)
[2017-04-25] MEDS: ALBUTEROL FS 2.5 MG/0.5 ML VIAL.NEB NEB SCH ×3 (01:39→19:48)
[2017-04-25] MEDS: IPRATROPIUM NEB FS 0.5 MG/2.5 ML AMPUL.NEB NEB SCH ×3 (01:39→19:47)
[2017-04-25 04:00] VITALS: BP_SYST 110; BP_SYST 130; BP_DIAS 61; BP_DIAS 76
[2017-04-25] MEDS: *INSULIN REGULAR(HUMULIN R)HUM 100 UNIT/ML VIAL SQ PRN (06:42)
[2017-04-25] MEDS: BLOOD SUGAR DIAGNOSTIC 1 EACH STRIP IN SCH ×4 (07:30→21:32)
[2017-04-25 07:57] LABS: BASOPHILS % (AUTO) 0.3 % (0.0-2.0); EOSINOPHILS % (AUTO) 0.2 % (0.0-6.0); HEMATOCRIT 48 % (39-51); HEMOGLOBIN 15.7 g/dL (13.5-17.5); LYMPHOCYTES # (AUTO) 3.4 /CMM (0.8-4.8); LYMPHOCYTES % (AUTO) 22.1 % (20.0-44.0); MEAN CORPUSCULAR HEMOGLOBIN 29 PG (26.0-33.0); MEAN CORPUSCULAR HGB CONC 33 g/dl (31.0-36.0); MEAN CORPUSCULAR VOLUME 88 fL (80-96); MONOCYTES # (AUTO) 1.5 /CMM (0.1-1.30); MONOCYTES % (AUTO) 9.5 % (2.0-12.0); NEUTROPHILS # (AUTO) 10.5 /CMM (1.8-8.9); NEUTROPHILS % (AUTO) 67.9 % (43.0-81.0); PLATELET COUNT (AUTO) 183 /CMM (150-450); RDW COEFFICIENT OF VARIATION 14.4 (11.5-15.0); RED BLOOD CELL COUNT(AUTO) 5.38 MIL/uL (4.5-6.0); WHITE BLOOD COUNT (AUTO) 15.5 K/uL (4.3-11.0)
[2017-04-25 07:59] LABS: CALCIUM, SERUM 9.3 mg/dL (8.5-10.1); CREATININE 0.8 mg/dL (0.6-1.3); POTASSIUM 2.9 mmol/L (3.5-5.1)
[2017-04-25 08:00] VITALS: BP 115/62
[2017-04-25] MEDS: methylPREDNISolone SOD SUCC 40 MG/ML VIAL IV SCH (08:27)
[2017-04-25] MEDS: FUROSEMIDE 40 MG TABLET PO SCH (08:27)
[2017-04-25] MEDS: ENOXAPARIN SODIUM 40 MG/0.4 ML DISP.SYRIN SQ SCH (08:28)
[2017-04-25] MEDS: POTASSIUM CHLORIDE 20 MEQ TAB.PRT.SR PO SCH ×3 (09:32→11:39)
[2017-04-25 10:37] LABS: ABG BASE EXCESS 11.1 mmol/L; ABG OXYGEN SATURATION 87.2 % (92.0-98.5); ABG PCO2 56.5 mmHg (35.0-45.0); ABG PH 7.443 (7.350-7.450); ABG PO2 52.8 mmHg (75.0-100.0); AaDO2 29.3 mmHg; COHb 1.2 % (0.5-1.5); MetHb 0.3 % (0.0-1.5); O2Hb 85.9 % (94.0-97.0); SITE, ABG Right Radial; VENT MODE, BG room air
[2017-04-25 12:00] VITALS: BP 115/62
[2017-04-25 16:00] VITALS: BP 110/61
[2017-04-25] MEDS: INSULIN REGULAR, HUMAN 100 UNIT/ML 3 ML VIAL SQ PRN (16:25)
[2017-04-25 20:00] VITALS: BP 108/67
--- NOTE | 2017-04-25 20:00 | NUR ---
RN NOTES RECEIVED PATIENT AWAKE IN BED WATCHING TV WITH NO DISTRESS NOTED. BREATHING EVEN AND UNLABORED. NO COMPLAINT OF PAIN OR DISCOMFORT. ALERT AND ORIENTED. VERBALLY ABLE TO COMMUNICATE NEEDS. VITAL SIGNS WNL. AMBULATORY. KEPT CLEAN AND DRY. WILL CONTINUE TO MONITOR.
[2017-04-25] MEDS: LEVOFLOXACIN (500MG) 500 MG TABLET PO SCH (23:25)
[2017-04-26] MEDS: IPRATROPIUM NEB FS 0.5 MG/2.5 ML AMPUL.NEB NEB SCH ×2 (01:38→07:29)
[2017-04-26] MEDS: ALBUTEROL FS 2.5 MG/0.5 ML VIAL.NEB NEB SCH ×2 (01:38→07:29)
[2017-04-26 04:00] VITALS: BP 100/69
[2017-04-26 06:32] LABS: BASOPHILS % (AUTO) 0.2 % (0.0-2.0); EOSINOPHILS # (AUTO) 0.1 /CMM (0.0-0.7); EOSINOPHILS % (AUTO) 0.8 % (0.0-6.0); HEMATOCRIT 47 % (39-51); HEMOGLOBIN 15.2 g/dL (13.5-17.5); LYMPHOCYTES # (AUTO) 3.9 /CMM (0.8-4.8); LYMPHOCYTES % (AUTO) 24.6 % (20.0-44.0); MEAN CORPUSCULAR HEMOGLOBIN 29 PG (26.0-33.0); MEAN CORPUSCULAR HGB CONC 33 g/dl (31.0-36.0); MEAN CORPUSCULAR VOLUME 89 fL (80-96); MONOCYTES # (AUTO) 1.4 /CMM (0.1-1.30); NEUTROPHILS # (AUTO) 10.3 /CMM (1.8-8.9); NEUTROPHILS % (AUTO) 65.4 % (43.0-81.0); PLATELET COUNT (AUTO) 198 /CMM (150-450); RDW COEFFICIENT OF VARIATION 14.4 (11.5-15.0); RED BLOOD CELL COUNT(AUTO) 5.26 MIL/uL (4.5-6.0); WHITE BLOOD COUNT (AUTO) 15.7 K/uL (4.3-11.0)
[2017-04-26 06:38] LABS: CREATININE 0.7 mg/dL (0.6-1.3); POTASSIUM 3.3 mmol/L (3.5-5.1)
--- NOTE | 2017-04-26 07:03 | NUR ---
RN NOTES PATIENT RESTING COMFORTABLY IN BED WITH NO DISTRESS, BREATHING EVEN AND UNLABORED. NO COMPLAINT OF PAIN. VITAL SIGNS WITH NORMAL LEVEL. NO SIGNIFICANT CHANGE OF CONDITION. WILL ENDORSE TO AM SHIFT FOR CONTINUITY OF CARE.
--- NOTE | 2017-04-26 07:46 | NUR ---
MS RN NOTES PATIENT IN BED RESTING NO SOB OR ACUTE DISTRESS NOTED. PATIENT ALERT, ORIENTED X3. DENIES ANY PAIN OR DISCOMFORT. BED IN LOW LOCKED POSITION. CALL LIGHT WITHIN REACH. LEFT UPPER ARM MIDLINE INTACT PATENT. WILL CONTINUE TO MONITOR.
[2017-04-26 08:00] VITALS: BP 107/44
[2017-04-26] MEDS: FUROSEMIDE 40 MG TABLET PO SCH (08:23)
[2017-04-26] MEDS: BLOOD SUGAR DIAGNOSTIC 1 EACH STRIP IN SCH ×2 (08:23→12:00)
[2017-04-26] MEDS: methylPREDNISolone SOD SUCC 40 MG/ML VIAL IV SCH (08:24)
[2017-04-26] MEDS: ENOXAPARIN SODIUM 40 MG/0.4 ML DISP.SYRIN SQ SCH (08:24)
[2017-04-26] MEDS ORDERED: MAGNESIUM HYDROXIDE 30 ML UDC PO PRN (10:00)
[2017-04-26] MEDS ORDERED: POTASSIUM CHLORIDE 20 MEQ TAB.PRT.SR PO SCH (11:00)
--- NOTE | 2017-04-26 11:00 | NUR ---
MS RN NOTES PATIENT SEEN AND EVALUATED BY DR. PRICE ORDERS TO DISCHARGE PATIENT HOME, NOTED AND CARRIED OUT.
[2017-04-26] MEDS ORDERED: POTASSIUM CHLORIDE 10 MEQ TABLET.SA PO ONE (11:45)
[2017-04-26] MEDS: INSULIN REGULAR, HUMAN 100 UNIT/ML 3 ML VIAL SQ PRN (12:01)
--- NOTE | 2017-04-26 13:15 | NUR ---
MS RN NOTES PATIENT DISCHARGE HOME VIA TAXI PATIENT LEFT HIS PHONE AT HOME AND UNABLE TO REMEMBER ANY OTHER FAMILY MEMBERS. TRIED REACHING PHONE NUMBER IN CHART MULTIPLE TIMES UNABLE TO CONTACT. PATIENT STATES HE HAS A [place]GOSTO FOR THE HOUSE AND LIVES WITH AND DAUGHTER. STATES HE HAS OXYGEN AT HOME. MD AWARE OF ALL ABNORMAL LABS. TEACHING PROVIDED VERBALIZED UNDERSTANDING. PATIENT IS NONE COMPLIANT WITH MEDICATIONS AND DIET AT HOME . TEACHING PROVIDED AND REINFORCED. INFORMED PATIENT TO FOLLOW UP WITH CARDIOLOGY AND PULMONOLOGY WITHIN 2 WEEKS. REFUSED FOR SN TO MAKE ANOINTMENT. PATIENT WITH DR. ALFONSO BUSINESS CARD STATES WILL CALL TO MAKE ANOINTMENT. ALL BELONGINGS ACCOUNTED FOR, BELONGING LIST SIGNED. ESCORTED TO TAXI AND TAXI VOUCHER PROVIDED.
== END 2017-04-26 13:10 | disposition home or self-care (01) | DRG 207 ==
LOC: ER 16:02 → TRANSITION 19:24 → ICU 21:00 → TELE1 04-23 10:55 → MEDSG1 04-24 14:43
PROVIDERS: ADMIT Internal Medicine; ATTEND Internal Medicine
PROC: 5A1955Z Respiratory Ventilation, Greater than 96 Consecutive Hours (ICD-10-PCS; principal; 2017-04-17)
PROC: 0BH17EZ Insertion of Endotracheal Airway into Trachea, Via Natural or Artificial Opening (ICD-10-PCS; 2017-04-17)
PROC: 5A09357 Assistance with Respiratory Ventilation, Less than 24 Consecutive Hours, Continuous Positive Airway Pressure (ICD-10-PCS; 2017-04-17)
PROC: 05H633Z Insertion of Infusion Device into Left Subclavian Vein, Percutaneous Approach (ICD-10-PCS; 2017-04-18)
PROC: B547ZZA Ultrasonography of Left Subclavian Vein, Guidance (ICD-10-PCS; 2017-04-18)
DX: J96.21 Acute and chronic respiratory failure with hypoxia (principal); G92 Toxic encephalopathy; E87.3 Alkalosis; N17.9 Acute kidney failure, unspecified; I50.30 Unspecified diastolic (congestive) heart failure; E87.1 Hypo-osmolality and hyponatremia; J44.1 Chronic obstructive pulmonary disease with (acute) exacerbation; E66.2 Morbid (severe) obesity with alveolar hypoventilation; Z68.41 Body mass index [BMI] 40.0-44.9, adult; I11.0 Hypertensive heart disease with heart failure; Z99.81 Dependence on supplemental oxygen; E11.65 Type 2 diabetes mellitus with hyperglycemia; G62.9 Polyneuropathy, unspecified; J96.22 Acute and chronic respiratory failure with hypercapnia; Z87.891 Personal history of nicotine dependence; Z79.899 Other long term (current) drug therapy; Z79.84 Long term (current) use of oral hypoglycemic drugs; E78.5 Hyperlipidemia, unspecified; E87.6 Hypokalemia; F41.9 Anxiety disorder, unspecified; K58.9 Irritable bowel syndrome, unspecified; F31.9 Bipolar disorder, unspecified; M79.7 Fibromyalgia; E05.90 Thyrotoxicosis, unspecified without thyrotoxic crisis or storm; G25.3 Myoclonus; I70.0 Atherosclerosis of aorta; Z98.890 Other specified postprocedural states; N40.0 Benign prostatic hyperplasia without lower urinary tract symptoms; Z91.19 Patient's noncompliance with other medical treatment and regimen; J45.909 Unspecified asthma, uncomplicated; T38.0X5A Adverse effect of glucocorticoids and synthetic analogues, initial encounter; Y92.009 Unspecified place in unspecified non-institutional (private) residence as the place of occurrence of the external cause; D72.829 Elevated white blood cell count, unspecified
CPT/HCPCS: 31720; 36415; 36569; 36600; 70450-TC; 71010-TC; 80048-TC; 80053-TC; 80061-TC; 80076-TC; 82803-TC; 82962-TC; 83605-TC; 83735-TC; 83880; 84100-TC; 84439-TC; 84443-TC; 84478-TC; 84484-TC; 85025-TC; 85378-TC; 85610-TC; 85730-TC; 87040-TC; 87081-TC; 87086-TC; 93307-TC; 94002-TC; 94003-TC; 94762-TC; 94799-TC; 99082-TC; A4216; A4349; A4606; J1630; J1650; J1815; J1940; J1953; J1956; J2060; J2270; J2920; J2930; J3490; J7030; J7040; J7050; Z7610

== ENCOUNTER 2017-06-06 07:37 | Inpatient (IN) | payer MEDICARE, OTHER ==
[2017-06-06] VITALS (13 sets, daily range): BP systolic 108–166; BP diastolic 56–96
[~2017-06-06] VITALS: Ht 167.6 cm; Wt 92.5 kg
[~2017-06-06 07:37] MED LIST changes: +ERGO500014 PO; -ERGO50003 PO; -EZET10TA PO; +EZET10TA14 PO
[2017-06-06] MEDS ORDERED: methylPREDNISolone SOD SUCC 125 MG/2ML VIAL ONE (07:51)
[2017-06-06] MEDS ORDERED: methylPREDNISolone SOD SUCC 125 MG/2ML VIAL IV ONE (08:00)
[2017-06-06] MEDS ORDERED: ALBUTEROL FS 2.5 MG/3 ML VIAL.NEB CONTNEB ONE (08:00)
[2017-06-06] MEDS ORDERED: IPRATROPIUM NEB FS 0.5 MG/2.5 ML AMPUL.NEB NEB ONE (08:00)
[2017-06-06] MEDS ORDERED: IPRATROPIUM NEB FS 0.5 MG/2.5 ML AMPUL.NEB ONE (08:05)
[2017-06-06] MEDS ORDERED: ALBUTEROL FS 2.5 MG/3 ML VIAL.NEB ONE (08:05)
[2017-06-06 08:09] LABS: BASOPHILS % (AUTO) 0.3 % (0.0-2.0); EOSINOPHILS # (AUTO) 0.1 /CMM (0.0-0.7); EOSINOPHILS % (AUTO) 1.2 % (0.0-6.0); HEMATOCRIT 44 % (39-51); HEMOGLOBIN 14.3 g/dL (13.5-17.5); LYMPHOCYTES # (AUTO) 1.9 /CMM (0.8-4.8); LYMPHOCYTES % (AUTO) 17.3 % (20.0-44.0); MEAN CORPUSCULAR HEMOGLOBIN 30 PG (26.0-33.0); MEAN CORPUSCULAR HGB CONC 33 g/dl (31.0-36.0); MEAN CORPUSCULAR VOLUME 91 fL (80-96); MONOCYTES # (AUTO) 0.7 /CMM (0.1-1.30); MONOCYTES % (AUTO) 5.9 % (2.0-12.0); NEUTROPHILS # (AUTO) 8.4 /CMM (1.8-8.9); NEUTROPHILS % (AUTO) 75.3 % (43.0-81.0); PLATELET COUNT (AUTO) 213 /CMM (150-450); RDW COEFFICIENT OF VARIATION 14.7 (11.5-15.0); RED BLOOD CELL COUNT(AUTO) 4.78 MIL/uL (4.5-6.0); WHITE BLOOD COUNT (AUTO) 11.1 K/uL (4.3-11.0)
[2017-06-06 08:22] LABS: INR 1.05 (0.87-1.13)
[2017-06-06 08:29] LABS: TROPONIN I < 0.017 ng/mL (0.00-0.056)
[2017-06-06] MEDS ORDERED: FUROSEMIDE 40 MG/4 ML VIAL IV ONE (08:30)
[2017-06-06 08:34] LABS: ALANINE AMINOTRANSFERASE 22 U/L (12-78); ALBUMIN 3.6 g/dL (3.4-5.0); ALKALINE PHOSPHATASE 65 U/L (46-116); ASPARTATE AMINOTRANSFERASE 15 U/L (15-37); B-TYPE NATRIURETIC PEPTIDE 178 PG/ML (0-125); BILIRUBIN,DIRECT 0.1 mg/dL (0.0-0.2); BILIRUBIN,TOTAL 0.5 mg/dL (0.2-1.0); CALCIUM, SERUM 9.3 mg/dL (8.5-10.1); CARBON DIOXIDE 43 mmol/L (21-32); CHLORIDE 104 mmol/L (98-107); CREATININE 0.7 mg/dL (0.6-1.3); GLUCOSE 121 mg/dL (74-106); POTASSIUM 4.3 mmol/L (3.5-5.1); SODIUM SERUM 147 mmol/L (136-145); TOTAL PROTEIN, SERUM 7.9 g/dL (6.4-8.2); UREA NITROGEN, BLOOD 11 mg/dL (7-18)
[2017-06-06] MEDS ORDERED: FUROSEMIDE 40 MG/4 ML VIAL ONE (08:34)
[2017-06-06 09:03] LABS: ABG OXYGEN SATURATION 93.3 % (92.0-98.5); ABG PCO2 97.5 mmHg (35.0-45.0); ABG PH 7.241 (7.350-7.450); ABG PO2 73.8 mmHg (75.0-100.0); AaDO2 25.5 mmHg; COHb 1.2 % (0.5-1.5); MetHb 0.3 % (0.0-1.5); O2Hb 91.9 % (94.0-97.0); SITE, ABG Left Radial; VENT MODE, BG ST 18/5 12 30%
[2017-06-06 14:55] LABS: ABG BASE EXCESS 12.9 mmol/L; ABG OXYGEN SATURATION 91.8 % (92.0-98.5); ABG PCO2 78.2 mmHg (35.0-45.0); ABG PH 7.354 (7.350-7.450); ABG PO2 62.2 mmHg (75.0-100.0); AaDO2 59.8 mmHg; COHb 1.6 % (0.5-1.5); MetHb 0.4 % (0.0-1.5); SITE, ABG Right Radial; VENT MODE, BG N/C
[2017-06-06] MEDS: LEVOFLOXACIN (500MG) 500 MG TABLET PO SCH (15:05)
[2017-06-06] MEDS: methylPREDNISolone SOD SUCC 125 MG/2ML VIAL IV SCH ×2 (15:05→21:17)
[2017-06-06] MEDS: ENOXAPARIN SODIUM 40 MG/0.4 ML DISP.SYRIN SQ SCH (15:07)
[2017-06-06] MEDS: IPRATROPIUM NEB FS 0.5 MG/2.5 ML AMPUL.NEB NEB SCH ×2 (15:30→19:48)
[2017-06-06] MEDS: ALBUTEROL HALF STRENGTH 1.25 MG/3 ML VIAL.NEB NEB SCH ×2 (15:30→19:48)
[2017-06-06] MEDS ORDERED: hydrALAZINE HCL IV 20 MG VIAL IV PRN (16:00)
[2017-06-06] MEDS ORDERED: MAGNESIUM HYDROXIDE 30 ML UDC PO PRN (16:00)
[2017-06-06] MEDS ORDERED: Z GUARD REMEDY 2 OZ OINT TP PRN (16:00)
[2017-06-06] MEDS ORDERED: ZOLPIDEM TARTRATE 5 MG TABLET PO PRN (16:00)
[2017-06-06] MEDS ORDERED: ACETAMINOPHEN 325 MG TABLET PO PRN (16:00)
[2017-06-06] MEDS ORDERED: ONDANSETRON HCL/PF 4 MG/2 ML VIAL IVP PRN (16:00)
[2017-06-06] MEDS: PREGABALIN 100 MG CAPSULE PO SCH (16:14)
[2017-06-06] MEDS: METFORMIN 500 MG TABLET PO SCH (16:14)
[2017-06-06] MEDS: CARVEDILOL 12.5 MG TABLET PO SCH (16:14)
[2017-06-06] MEDS ORDERED: DEXTROSE 50%-WATER 50 ML DISP.SYRIN IV PRN (16:30)
[2017-06-06] MEDS: BLOOD SUGAR DIAGNOSTIC 1 EACH STRIP IN SCH ×2 (16:31→21:17)
[2017-06-06] MEDS: INSULIN REGULAR, HUMAN 100 UNIT/ML 3 ML VIAL SQ PRN ×2 (16:33→21:25)
[2017-06-07] VITALS (19 sets, daily range): BP systolic 109–169; BP diastolic 49–98
[2017-06-07] MEDS: ALBUTEROL HALF STRENGTH 1.25 MG/3 ML VIAL.NEB NEB SCH ×7 (00:19→23:24)
[2017-06-07] MEDS: IPRATROPIUM NEB FS 0.5 MG/2.5 ML AMPUL.NEB NEB SCH ×7 (00:19→23:24)
[2017-06-07] MEDS: methylPREDNISolone SOD SUCC 125 MG/2ML VIAL IV SCH ×3 (05:02→21:03)
[2017-06-07 05:29] LABS: BASOPHILS % (AUTO) 0.1 % (0.0-2.0); HEMATOCRIT 43 % (39-51); HEMOGLOBIN 14.4 g/dL (13.5-17.5); LYMPHOCYTES # (AUTO) 0.9 /CMM (0.8-4.8); MEAN CORPUSCULAR HEMOGLOBIN 30 PG (26.0-33.0); MEAN CORPUSCULAR HGB CONC 34 g/dl (31.0-36.0); MEAN CORPUSCULAR VOLUME 90 fL (80-96); MONOCYTES # (AUTO) 0.2 /CMM (0.1-1.30); MONOCYTES % (AUTO) 1.9 % (2.0-12.0); NEUTROPHILS # (AUTO) 8.1 /CMM (1.8-8.9); PLATELET COUNT (AUTO) 204 /CMM (150-450); RDW COEFFICIENT OF VARIATION 14.8 (11.5-15.0); RED BLOOD CELL COUNT(AUTO) 4.75 MIL/uL (4.5-6.0); WHITE BLOOD COUNT (AUTO) 9.3 K/uL (4.3-11.0)
[2017-06-07 05:50] LABS: CALCIUM, SERUM 9.4 mg/dL (8.5-10.1); CREATININE 0.7 mg/dL (0.6-1.3); MAGNESIUM 1.7 mg/dL (1.8-2.4); PHOSPHORUS 3.7 mg/dL (2.5-4.9); POTASSIUM 3.9 mmol/L (3.5-5.1)
[2017-06-07] MEDS: SERTRALINE HCL 50 MG TABLET PO SCH (08:55)
[2017-06-07] MEDS: METFORMIN 500 MG TABLET PO SCH ×2 (08:55→17:15)
[2017-06-07] MEDS: BLOOD SUGAR DIAGNOSTIC 1 EACH STRIP IN SCH ×4 (08:55→21:13)
[2017-06-07] MEDS: TAMSULOSIN 0.4 MG CAP.SR.24H PO SCH (08:55)
[2017-06-07] MEDS: EZETIMIBE 10 MG TABLET PO SCH (08:55)
[2017-06-07] MEDS: ATORVASTATIN 40 MG TABLET PO SCH (08:55)
[2017-06-07] MEDS: CARVEDILOL 12.5 MG TABLET PO SCH ×2 (08:56→18:42)
[2017-06-07] MEDS: VALSARTAN 80 MG TABLET PO SCH (08:56)
[2017-06-07] MEDS: ENOXAPARIN SODIUM 40 MG/0.4 ML DISP.SYRIN SQ SCH (08:57)
[2017-06-07] MEDS: PREGABALIN 100 MG CAPSULE PO SCH ×2 (08:57→17:15)
[2017-06-07] MEDS: INSULIN REGULAR, HUMAN 100 UNIT/ML 3 ML VIAL SQ PRN ×4 (09:03→21:12)
[2017-06-07 10:37] LABS: ABG BASE EXCESS 12.5 mmol/L; ABG PCO2 62.6 mmHg (35.0-45.0); ABG PH 7.423 (7.350-7.450); ABG PO2 53.5 mmHg (75.0-100.0); AaDO2 101.4 mmHg; COHb 0.5 % (0.5-1.5); MetHb 0.4 % (0.0-1.5); O2Hb 87.2 % (94.0-97.0); SITE, ABG Left Radial; VENT MODE, BG Nasal Cannula
[2017-06-07] MEDS: Magnesium 1GM/D5W 100ML PREMIX 100 ML IV SCH ×2 (11:33→12:45)
[2017-06-07] MEDS: LEVOFLOXACIN (500MG) 500 MG TABLET PO SCH (14:52)
[2017-06-08] VITALS: BP 122/98
[2017-06-08] MEDS: ALBUTEROL HALF STRENGTH 1.25 MG/3 ML VIAL.NEB NEB SCH ×6 (03:30→23:18)
[2017-06-08] MEDS: IPRATROPIUM NEB FS 0.5 MG/2.5 ML AMPUL.NEB NEB SCH ×6 (03:30→23:18)
[2017-06-08 04:00] VITALS: BP 145/76
[2017-06-08] MEDS: methylPREDNISolone SOD SUCC 125 MG/2ML VIAL IV SCH ×3 (05:31→21:37)
[2017-06-08] MEDS: BLOOD SUGAR DIAGNOSTIC 1 EACH STRIP IN SCH ×4 (06:39→21:37)
[2017-06-08 06:43] LABS: BASOPHILS % (AUTO) 0.3 % (0.0-2.0); HEMATOCRIT 44 % (39-51); HEMOGLOBIN 14.4 g/dL (13.5-17.5); LYMPHOCYTES # (AUTO) 1.2 /CMM (0.8-4.8); LYMPHOCYTES % (AUTO) 8.6 % (20.0-44.0); MEAN CORPUSCULAR HEMOGLOBIN 30 PG (26.0-33.0); MEAN CORPUSCULAR HGB CONC 33 g/dl (31.0-36.0); MEAN CORPUSCULAR VOLUME 91 fL (80-96); MONOCYTES # (AUTO) 0.6 /CMM (0.1-1.30); MONOCYTES % (AUTO) 4.5 % (2.0-12.0); NEUTROPHILS # (AUTO) 11.9 /CMM (1.8-8.9); NEUTROPHILS % (AUTO) 86.6 % (43.0-81.0); PLATELET COUNT (AUTO) 220 /CMM (150-450); RDW COEFFICIENT OF VARIATION 15.2 (11.5-15.0); WHITE BLOOD COUNT (AUTO) 13.8 K/uL (4.3-11.0)
[2017-06-08] MEDS: INSULIN REGULAR, HUMAN 100 UNIT/ML 3 ML VIAL SQ PRN ×4 (06:43→21:44)
[2017-06-08 07:01] LABS: CALCIUM, SERUM 9.3 mg/dL (8.5-10.1); CREATININE 0.8 mg/dL (0.6-1.3); MAGNESIUM 1.9 mg/dL (1.8-2.4); PHOSPHORUS 3.9 mg/dL (2.5-4.9)
[2017-06-08 08:00] VITALS: BP_SYST 110; BP_DIAS 49; BP_DIAS 50
[2017-06-08] MEDS: EZETIMIBE 10 MG TABLET PO SCH (08:41)
[2017-06-08] MEDS: PREGABALIN 100 MG CAPSULE PO SCH ×2 (08:41→16:31)
[2017-06-08] MEDS: METFORMIN 500 MG TABLET PO SCH ×2 (08:41→16:31)
[2017-06-08] MEDS: TAMSULOSIN 0.4 MG CAP.SR.24H PO SCH (08:42)
[2017-06-08] MEDS: ATORVASTATIN 40 MG TABLET PO SCH (08:42)
[2017-06-08] MEDS: SERTRALINE HCL 50 MG TABLET PO SCH (08:42)
[2017-06-08] MEDS: CARVEDILOL 12.5 MG TABLET PO SCH ×2 (08:43→16:31)
[2017-06-08] MEDS: VALSARTAN 80 MG TABLET PO SCH (08:43)
[2017-06-08] MEDS: ENOXAPARIN SODIUM 40 MG/0.4 ML DISP.SYRIN SQ SCH (08:45)
[2017-06-08] MEDS ORDERED: FUROSEMIDE 20 MG/2 ML VIAL IV ONE (14:00)
[2017-06-08] MEDS: LEVOFLOXACIN (500MG) 500 MG TABLET PO SCH (14:42)
[2017-06-08 16:00] VITALS: BP 144/82
[2017-06-09] MEDS: IPRATROPIUM NEB FS 0.5 MG/2.5 ML AMPUL.NEB NEB SCH ×4 (03:53→15:30)
[2017-06-09] MEDS: ALBUTEROL HALF STRENGTH 1.25 MG/3 ML VIAL.NEB NEB SCH ×4 (03:54→15:30)
[2017-06-09] MEDS: methylPREDNISolone SOD SUCC 125 MG/2ML VIAL IV SCH ×2 (05:36→12:18)
[2017-06-09] MEDS: BLOOD SUGAR DIAGNOSTIC 1 EACH STRIP IN SCH ×3 (07:50→16:27)
[2017-06-09] MEDS: INSULIN REGULAR, HUMAN 100 UNIT/ML 3 ML VIAL SQ PRN ×3 (07:51→16:29)
[2017-06-09 08:00] VITALS: BP 111/75
[2017-06-09 08:05] LABS: BASOPHILS % (AUTO) 0.1 % (0.0-2.0); HEMATOCRIT 46 % (39-51); HEMOGLOBIN 15.3 g/dL (13.5-17.5); LYMPHOCYTES # (AUTO) 0.8 /CMM (0.8-4.8); LYMPHOCYTES % (AUTO) 6.8 % (20.0-44.0); MEAN CORPUSCULAR HEMOGLOBIN 30 PG (26.0-33.0); MEAN CORPUSCULAR HGB CONC 33 g/dl (31.0-36.0); MEAN CORPUSCULAR VOLUME 91 fL (80-96); MONOCYTES # (AUTO) 0.5 /CMM (0.1-1.30); MONOCYTES % (AUTO) 4.3 % (2.0-12.0); NEUTROPHILS # (AUTO) 9.9 /CMM (1.8-8.9); NEUTROPHILS % (AUTO) 88.8 % (43.0-81.0); PLATELET COUNT (AUTO) 200 /CMM (150-450); RDW COEFFICIENT OF VARIATION 15.1 (11.5-15.0); RED BLOOD CELL COUNT(AUTO) 5.08 MIL/uL (4.5-6.0); WHITE BLOOD COUNT (AUTO) 11.1 K/uL (4.3-11.0)
[2017-06-09] MEDS: EZETIMIBE 10 MG TABLET PO SCH (08:18)
[2017-06-09] MEDS: ATORVASTATIN 40 MG TABLET PO SCH (08:18)
[2017-06-09] MEDS: ENOXAPARIN SODIUM 40 MG/0.4 ML DISP.SYRIN SQ SCH (08:18)
[2017-06-09] MEDS: SERTRALINE HCL 50 MG TABLET PO SCH (08:18)
[2017-06-09] MEDS: PREGABALIN 100 MG CAPSULE PO SCH ×2 (08:18→16:27)
[2017-06-09] MEDS: TAMSULOSIN 0.4 MG CAP.SR.24H PO SCH (08:18)
[2017-06-09] MEDS: CARVEDILOL 12.5 MG TABLET PO SCH ×2 (08:19→16:27)
[2017-06-09] MEDS: VALSARTAN 80 MG TABLET PO SCH (08:19)
[2017-06-09] MEDS: METFORMIN 500 MG TABLET PO SCH ×2 (08:19→16:27)
[2017-06-09 08:20] LABS: CALCIUM, SERUM 9.1 mg/dL (8.5-10.1); CREATININE 0.8 mg/dL (0.6-1.3); MAGNESIUM 2.1 mg/dL (1.8-2.4); PHOSPHORUS 4.3 mg/dL (2.5-4.9); POTASSIUM 4.1 mmol/L (3.5-5.1)
[2017-06-09] MEDS ORDERED: METH4TAB17 PO (10:38)
[2017-06-09] MEDS ORDERED: LEVO500T2 PO (10:38)
[2017-06-09] MEDS ORDERED: IPRA0.2S9 NEB (10:38)
[2017-06-09] MEDS: LEVOFLOXACIN (500MG) 500 MG TABLET PO SCH (15:08)
[2017-06-09 16:00] VITALS: BP 122/66
[2017-06-09 16:27] VITALS: BP 132/78
[2017-06-09] MEDS ORDERED: FURO-145 PO (16:57)
[2017-06-09 17:52] LABS: ABG BASE EXCESS 9.9 mmol/L; ABG OXYGEN SATURATION 84.9 % (92.0-98.5); ABG PCO2 60.7 mmHg (35.0-45.0); ABG PH 7.408 (7.350-7.450); ABG PO2 49.5 mmHg (75.0-100.0); AaDO2 27.5 mmHg; COHb 0.6 % (0.5-1.5); MetHb 0.4 % (0.0-1.5); O2Hb 84.1 % (94.0-97.0); SITE, ABG Left Radial; VENT MODE, BG room air
[2017-06-12] MEDS ORDERED: ERGOCALCIFEROL (VITAMIN D 2) 50,000 UNIT CAPSULE PO SCH (07:30)
== END 2017-06-09 18:14 | disposition home or self-care (01) | DRG 291 ==
LOC: ER 07:38 → ICU 13:12 → TELE-TD 06-07 15:43 → MEDSG1 06-08 08:25
PROVIDERS: ADMIT Nurse Practitioner Acute Care; ATTEND Nurse Practitioner Acute Care
DX: I11.0 Hypertensive heart disease with heart failure (principal); J96.21 Acute and chronic respiratory failure with hypoxia; E87.0 Hyperosmolality and hypernatremia; J96.22 Acute and chronic respiratory failure with hypercapnia; J44.1 Chronic obstructive pulmonary disease with (acute) exacerbation; J44.0 Chronic obstructive pulmonary disease with (acute) lower respiratory infection; E66.2 Morbid (severe) obesity with alveolar hypoventilation; I50.33 Acute on chronic diastolic (congestive) heart failure; J45.909 Unspecified asthma, uncomplicated; K58.9 Irritable bowel syndrome, unspecified; Z79.899 Other long term (current) drug therapy; Z79.84 Long term (current) use of oral hypoglycemic drugs; Z68.32 Body mass index [BMI] 32.0-32.9, adult; E78.5 Hyperlipidemia, unspecified; G62.9 Polyneuropathy, unspecified; F41.9 Anxiety disorder, unspecified; F32.9 Major depressive disorder, single episode, unspecified; Z91.19 Patient's noncompliance with other medical treatment and regimen; D72.829 Elevated white blood cell count, unspecified; E11.65 Type 2 diabetes mellitus with hyperglycemia
CPT/HCPCS: 36415; 36600; 71045-TC; 80048-TC; 80076-TC; 82803-TC; 82962-TC; 83605-TC; 83735-TC; 83880; 84100-TC; 84484-TC; 85025-TC; 85730-TC; 87040-TC; 87081-TC; 94799-TC; A4606; A6253; J1650; J1815; J1940; J2930; J3475; Z7610

== ENCOUNTER 2017-07-25 11:32 | Inpatient (IN) | payer MEDICARE, OTHER ==
[2017-07-25] VITALS (11 sets, daily range): BP systolic 124–163; BP diastolic 62–142
[~2017-07-25] VITALS: Ht 170.2 cm; Wt 117.0 kg
[~2017-07-25 11:32] MED LIST changes: -ERGO500014 PO; +FURO-145 PO; +IPRA0.2S9 NEB; +LEVO500T2 PO; +METH4TAB17 PO; -PRED50TA PO
--- NOTE | 2017-07-25 11:45 | NUR ---
[id number] FROM HOME: SOB, HYPOXIA. Hx OF RECENT PNA, NAD NOTED, VSS, PT ON O2 LPM, VIA NC. RT AT BS. PT WAS PUT ON MONITOR AND HOSPITAL MD LAISHA AT BS.
[2017-07-25 12:19] LABS: BASOPHILS # (AUTO) 0.1 /CMM (0.0-0.2); BASOPHILS % (AUTO) 0.7 % (0.0-2.0); EOSINOPHILS # (AUTO) 0.1 /CMM (0.0-0.7); EOSINOPHILS % (AUTO) 0.9 % (0.0-6.0); HEMATOCRIT 43 % (39-51); HEMOGLOBIN 14.4 g/dL (13.5-17.5); LYMPHOCYTES # (AUTO) 1.7 /CMM (0.8-4.8); LYMPHOCYTES % (AUTO) 12.1 % (20.0-44.0); MEAN CORPUSCULAR HEMOGLOBIN 29 PG (26.0-33.0); MEAN CORPUSCULAR HGB CONC 34 g/dl (31.0-36.0); MEAN CORPUSCULAR VOLUME 87 fL (80-96); MONOCYTES # (AUTO) 1.2 /CMM (0.1-1.30); MONOCYTES % (AUTO) 8.6 % (2.0-12.0); NEUTROPHILS # (AUTO) 11.2 /CMM (1.8-8.9); NEUTROPHILS % (AUTO) 77.7 % (43.0-81.0); PLATELET COUNT (AUTO) 209 /CMM (150-450); RDW COEFFICIENT OF VARIATION 13.9 (11.5-15.0); RED BLOOD CELL COUNT(AUTO) 4.92 MIL/uL (4.5-6.0); WHITE BLOOD COUNT (AUTO) 14.3 K/uL (4.3-11.0)
[2017-07-25 12:33] LABS: CALCIUM, SERUM 9.3 mg/dL (8.5-10.1); CREATININE 0.8 mg/dL (0.6-1.3); POTASSIUM 3.7 mmol/L (3.5-5.1)
[2017-07-25 12:39] LABS: ALBUMIN 3.1 g/dL (3.4-5.0); BILIRUBIN,TOTAL 0.8 mg/dL (0.2-1.0); TOTAL PROTEIN, SERUM 7.6 g/dL (6.4-8.2)
[2017-07-25] MEDS ORDERED: Magnesium 1GM/D5W 100ML PREMIX 200 ML IV ONE (12:39)
[2017-07-25 12:41] LABS: TROPONIN I < 0.017 ng/mL (0.00-0.056)
[2017-07-25] MEDS ORDERED: methylPREDNISolone SOD SUCC 125 MG/2ML VIAL ONE (12:44)
[2017-07-25] MEDS ORDERED: ALBUTEROL FS 2.5 MG/3 ML VIAL.NEB ONE (12:48)
[2017-07-25] MEDS ORDERED: IPRATROPIUM NEB FS 0.5 MG/2.5 ML AMPUL.NEB ONE (12:48)
[2017-07-25] MEDS ORDERED: TERBUTALINE SULFATE 1 MG/ML VIAL ONE (12:55)
[2017-07-25] MEDS ORDERED: methylPREDNISolone SOD SUCC 125 MG/2ML VIAL IV ONE (13:00)
[2017-07-25] MEDS ORDERED: TERBUTALINE SULFATE 1 MG/ML VIAL SQ ONE (13:00)
[2017-07-25] MEDS ORDERED: ALBUTEROL FS 2.5 MG/3 ML VIAL.NEB CONTNEB ONE (13:00)
[2017-07-25] MEDS ORDERED: IPRATROPIUM NEB FS 0.5 MG/2.5 ML AMPUL.NEB NEB ONE (13:00)
[2017-07-25] MEDS ORDERED: INSU100V11 SQ (13:28)
[2017-07-25] MEDS ORDERED: ERGO500014 PO (13:28)
[2017-07-25] MEDS ORDERED: BUDE10.22 IH (13:28)
[2017-07-25] MEDS ORDERED: IPRA0.2S9 IH (13:28)
[2017-07-25] MEDS ORDERED: PANT40TA4 PO (13:28)
[2017-07-25] MEDS ORDERED: HYDR-548 PO (13:28)
[2017-07-25] MEDS ORDERED: FOLI1TAB16 PO (13:28)
[2017-07-25] MEDS ORDERED: CYAN100096 PO (13:28)
[2017-07-25] MEDS ORDERED: ALBU8.5H8 IH (13:28)
[2017-07-25] MEDS ORDERED: LOSA25TA13 PO (13:28)
[2017-07-25] MEDS ORDERED: THIA100T74 PO (13:28)
[2017-07-25] MEDS ORDERED: FUROSEMIDE 40 MG/4 ML VIAL IV ONE (13:30)
[2017-07-25 13:50] LABS: B-TYPE NATRIURETIC PEPTIDE 35 PG/ML (0-125)
[2017-07-25] MEDS ORDERED: MAG HYDROX/AL HYDROX/SIMETH 30 ML UDC PO PRN (15:30)
[2017-07-25] MEDS ORDERED: ACETAMINOPHEN 325 MG TABLET PO PRN (15:30)
[2017-07-25] MEDS ORDERED: Z GUARD REMEDY 2 OZ OINT TP PRN (15:30)
[2017-07-25] MEDS ORDERED: DEXTROSE 50%-WATER 50 ML DISP.SYRIN IV PRN (15:30)
[2017-07-25] MEDS ORDERED: ONDANSETRON HCL/PF 4 MG/2 ML VIAL IVP PRN (15:30)
[2017-07-25] MEDS ORDERED: MAGNESIUM HYDROXIDE 30 ML UDC PO PRN (15:30)
[2017-07-25] MEDS: BLOOD SUGAR DIAGNOSTIC 1 EACH STRIP IN SCH ×2 (16:21→21:19)
[2017-07-25] MEDS: IPRATROPIUM NEB FS 0.5 MG/2.5 ML AMPUL.NEB NEB SCH ×3 (16:23→22:48)
[2017-07-25] MEDS: ALBUTEROL FS 2.5 MG/0.5 ML VIAL.NEB NEB SCH ×3 (16:23→22:48)
[2017-07-25] MEDS: INSULIN REGULAR, HUMAN 100 UNIT/ML 3 ML VIAL SQ PRN ×2 (16:27→21:27)
[2017-07-25] MEDS: ENOXAPARIN SODIUM 40 MG/0.4 ML DISP.SYRIN SQ SCH (16:27)
[2017-07-25] MEDS: INSULIN ASPART/LISPRO 100 UNIT/ML CARTRIDGE SQ SCH (16:28)
[2017-07-25] MEDS: LEVOFLOXACIN (500MG) 500 MG TABLET PO SCH (16:29)
[2017-07-25] MEDS: METFORMIN 500 MG TABLET PO SCH (16:29)
[2017-07-25] MEDS: BUMETANIDE (1 MG) 1 MG TABLET PO SCH (16:29)
[2017-07-25] MEDS: CARVEDILOL 12.5 MG TABLET PO SCH (16:29)
[2017-07-25] MEDS: methylPREDNISolone SOD SUCC 40 MG/ML VIAL IV SCH (16:30)
[2017-07-25] MEDS: PREGABALIN 25 MG CAPSULE PO SCH (16:32)
[2017-07-25 17:11] LABS: ABG BASE EXCESS 9.3 mmol/L; ABG OXYGEN SATURATION 90.3 % (92.0-98.5); ABG PCO2 64.9 mmHg (35.0-45.0); ABG PH 7.377 (7.350-7.450); ABG PO2 57.4 mmHg (75.0-100.0); AaDO2 80.2 mmHg; COHb 1.3 % (0.5-1.5); MetHb 0.3 % (0.0-1.5); O2Hb 88.9 % (94.0-97.0); SITE, ABG Right Radial; VENT MODE, BG N/C
--- NOTE | 2017-07-25 20:00 | NUR ---
RN NOTES RECEIVED PATIENT RESTING COMFORTABLY IN BED WITH NO DISTRESS NOTED. BREATHING EVEN AND UNLABORED. ON O2 AT 4LPM VIA NASAL CANNULA TOLERATING WELL. NO COMPLAINT OF PAIN OR DISCOMFORT. ALERT AND ORIENTED. ABLE TO VERBALIZE NEEDS. KEPT CLEAN AND DRY. WILL CONTINUE TO MONITOR
[2017-07-25] MEDS: INSULIN GLARGINE, 100 UNIT/ML CARTRIDGE SQ SCH (21:29)
[2017-07-26] VITALS (16 sets, daily range): BP systolic 96–138; BP diastolic 40–91
[2017-07-26] MEDS: INSULIN REGULAR, HUMAN 100 UNIT/ML 3 ML VIAL SQ PRN ×6 (00:46→21:05)
[2017-07-26] MEDS: BLOOD SUGAR DIAGNOSTIC 1 EACH STRIP IN SCH ×6 (00:47→21:07)
[2017-07-26] MEDS ORDERED: ZOLPIDEM TARTRATE 5 MG TABLET PO PRN (02:00)
[2017-07-26] MEDS ORDERED: ZOLPIDEM TARTRATE 5 MG TABLET ONE (02:01)
[2017-07-26] MEDS: IPRATROPIUM NEB FS 0.5 MG/2.5 ML AMPUL.NEB NEB SCH ×6 (03:00→22:48)
[2017-07-26] MEDS: ALBUTEROL FS 2.5 MG/0.5 ML VIAL.NEB NEB SCH ×6 (03:01→22:48)
--- NOTE | 2017-07-26 04:11 | NUR ---
RT NOTES. RECIVED PT ON NOTED SETTINGS. PLACED PT ON PER LAST ORDER, BUT PT DIDN NOT JACK SETTINGS WELL. PLACED BACK ON PREV SETTINGS. NO DISTRESS NOTED ON NOTED SETTINGS. PT SAT ABOVE 92 ON NOTED SETTINGS. WILL CONT TO MONITOR PT FOR REST OF SHIFT. Addendum: 07/26/17 at 0413 by CARMITA SUE RT Amended: Links added.
[2017-07-26] MEDS: HYDROCODONE/APAP 10/325MG 1 EA TABLET PO PRN (04:20)
[2017-07-26 04:58] LABS: BASOPHILS % (AUTO) 0.3 % (0.0-2.0); EOSINOPHILS % (AUTO) 0.2 % (0.0-6.0); HEMATOCRIT 45 % (39-51); HEMOGLOBIN 15.1 g/dL (13.5-17.5); LYMPHOCYTES # (AUTO) 0.7 /CMM (0.8-4.8); LYMPHOCYTES % (AUTO) 5.8 % (20.0-44.0); MEAN CORPUSCULAR HEMOGLOBIN 29 PG (26.0-33.0); MEAN CORPUSCULAR HGB CONC 34 g/dl (31.0-36.0); MEAN CORPUSCULAR VOLUME 88 fL (80-96); MONOCYTES # (AUTO) 0.3 /CMM (0.1-1.30); MONOCYTES % (AUTO) 2.7 % (2.0-12.0); NEUTROPHILS # (AUTO) 11.7 /CMM (1.8-8.9); PLATELET COUNT (AUTO) 245 /CMM (150-450); RDW COEFFICIENT OF VARIATION 13.6 (11.5-15.0); RED BLOOD CELL COUNT(AUTO) 5.13 MIL/uL (4.5-6.0); WHITE BLOOD COUNT (AUTO) 12.7 K/uL (4.3-11.0)
[2017-07-26 05:14] LABS: ALBUMIN 3.3 g/dL (3.4-5.0); BILIRUBIN,TOTAL 0.5 mg/dL (0.2-1.0); CALCIUM, SERUM 9.4 mg/dL (8.5-10.1); CREATININE 0.9 mg/dL (0.6-1.3); MAGNESIUM 2.1 mg/dL (1.8-2.4); PHOSPHORUS 3.5 mg/dL (2.5-4.9); TOTAL PROTEIN, SERUM 8.3 g/dL (6.4-8.2)
[2017-07-26 05:18] LABS: THYROID STIMULATING HORMONE 0.232 uIU/mL (0.358-3.74)
--- NOTE | 2017-07-26 07:04 | NUR ---
RN CLOSING NOTES RESTING COMFORTABLY IN BED, NO RESPIRATORY DISTRESS OR SHORTNESS OF BREATH. BREATHING EVEN AND UNLABORED. NO COMPLAINT OF PAIN OF THIS TIME. VITAL SIGNS WNL. ALERT ORIENTED AND VERBALLY ABLE TO COMMUNICATE NEEDS. NO SIGNIFICANT CHANGE OF CONDITION. ON BIPAP THE WHOLE NIGHT WITH SLEEP APNEA WITH O2 SAT FRO 87% TO 96%. KEPT CLEAN AND DRY. WILL ENDORSE TO AM SHIFT FOR CONTINUITY OF CARE.
--- NOTE | 2017-07-26 07:41 | NUR ---
BALLISTIC EXPERT RECEIVED PATIENT FROM THE PREVIOUS SHIFT. PATIENT IS IN BED. RESTING COMFORTABLY. ON BIPAP AT THIS TIME. STABLE VITAL SINGS. BED ALARM ON FOR SAFETY. WILL CONTINUE TO MONITOR AND PROVIDE CARE.
[2017-07-26] MEDS: methylPREDNISolone SOD SUCC 40 MG/ML VIAL IV SCH ×3 (08:35→17:39)
[2017-07-26] MEDS: TAMSULOSIN 0.4 MG CAP.SR.24H PO SCH (08:35)
[2017-07-26] MEDS: FOLIC ACID 1 MG TABLET PO SCH (08:36)
[2017-07-26] MEDS: SERTRALINE HCL 50 MG TABLET PO SCH (08:36)
[2017-07-26] MEDS: METFORMIN 500 MG TABLET PO SCH ×2 (08:36→17:38)
[2017-07-26] MEDS: PANTOPRAZOLE 40 MG TABLET.DR PO SCH (08:36)
[2017-07-26] MEDS: VALSARTAN 80 MG TABLET PO SCH (08:36)
[2017-07-26] MEDS: BUMETANIDE (1 MG) 1 MG TABLET PO SCH ×2 (08:36→17:38)
[2017-07-26] MEDS: CARVEDILOL 12.5 MG TABLET PO SCH ×2 (08:36→17:00)
[2017-07-26] MEDS: ATORVASTATIN 40 MG TABLET PO SCH (08:36)
[2017-07-26] MEDS: PREGABALIN 25 MG CAPSULE PO SCH ×2 (08:36→17:39)
[2017-07-26] MEDS: FLUTICASONE/VILANTEROL 1 EACH BLST.W.DEV IH SCH (08:37)
[2017-07-26] MEDS: THIAMINE HCL 100 MG TABLET PO SCH (08:40)
[2017-07-26] MEDS: INSULIN ASPART/LISPRO 100 UNIT/ML CARTRIDGE SQ SCH ×3 (08:41→17:45)
[2017-07-26] MEDS ORDERED: FUROSEMIDE 20 MG/2 ML VIAL IV ONE (09:00)
--- NOTE | 2017-07-26 11:09 | NUR ---
HAND BOOKED FOLDER AND STITCHER TRANSFERRED THE PATIENT TO [facility] LEVEL OF CARE ON STABLE CONDITIONS. ACLS PROTOCOL.
[2017-07-26] MEDS: LEVOFLOXACIN (500MG) 500 MG TABLET PO SCH (17:39)
--- NOTE | 2017-07-26 19:25 | NUR ---
WIL[facility] RN OPENING NOTES RECEIVED REPORT FROM MARITZA Rivera RN. PATIENT A/A/O X4, ABLE TO VERBALIZE NEEDS. BREATHING EVEN & UNLABORED, TOLERATING O2 4L VIA NC. ON TELE W/ SINUS RHYTHM, HR IN 80S. LEFT AC IV #20 INTACT & PATENT W/ DRESSING CDI, SALINE LOCKED. ABLE TO AMBULATE TO BATHROOM & USE URINAL. DENIES ANY PAIN OR DISCOMFORT @ THIS TIME. PATIENT RESTING COMFORTABLY IN BED W/ SAFETY MEASURES IN PLACE. INSTRUCTED TO USE CALL LIGHT FOR ASSISTANCE. WILL CONTINUE TO MONITOR.
[2017-07-26] MEDS: ENOXAPARIN SODIUM 40 MG/0.4 ML DISP.SYRIN SQ SCH (21:07)
[2017-07-26] MEDS: INSULIN GLARGINE, 100 UNIT/ML CARTRIDGE SQ SCH (21:07)
[2017-07-27] VITALS: BP 97/43
[2017-07-27] MEDS: BLOOD SUGAR DIAGNOSTIC 1 EACH STRIP IN SCH ×5 (00:05→16:36)
[2017-07-27] MEDS: INSULIN REGULAR, HUMAN 100 UNIT/ML 3 ML VIAL SQ PRN ×3 (00:06→12:38)
[2017-07-27] MEDS: HYDROCODONE/APAP 10/325MG 1 EA TABLET PO PRN (01:38)
[2017-07-27] MEDS: ALBUTEROL FS 2.5 MG/0.5 ML VIAL.NEB NEB SCH ×4 (03:02→15:56)
[2017-07-27] MEDS: IPRATROPIUM NEB FS 0.5 MG/2.5 ML AMPUL.NEB NEB SCH ×4 (03:02→15:56)
[2017-07-27 04:00] VITALS: BP 108/52
[2017-07-27 06:36] LABS: HEMATOCRIT 41 % (39-51); HEMOGLOBIN 13.7 g/dL (13.5-17.5); LYMPHOCYTES % (AUTO) 5.8 % (20.0-44.0); MEAN CORPUSCULAR HEMOGLOBIN 30 PG (26.0-33.0); MEAN CORPUSCULAR HGB CONC 33 g/dl (31.0-36.0); MEAN CORPUSCULAR VOLUME 89 fL (80-96); MONOCYTES # (AUTO) 0.8 /CMM (0.1-1.30); MONOCYTES % (AUTO) 4.6 % (2.0-12.0); NEUTROPHILS # (AUTO) 15.9 /CMM (1.8-8.9); NEUTROPHILS % (AUTO) 89.6 % (43.0-81.0); PLATELET COUNT (AUTO) 263 /CMM (150-450); RDW COEFFICIENT OF VARIATION 15.2 (11.5-15.0); RED BLOOD CELL COUNT(AUTO) 4.64 MIL/uL (4.5-6.0); WHITE BLOOD COUNT (AUTO) 17.7 K/uL (4.3-11.0)
[2017-07-27 07:10] LABS: ALBUMIN 3.1 g/dL (3.4-5.0); BILIRUBIN,TOTAL 0.4 mg/dL (0.2-1.0); CALCIUM, SERUM 9.3 mg/dL (8.5-10.1); CREATININE 1.2 mg/dL (0.6-1.3); POTASSIUM 3.9 mmol/L (3.5-5.1); TOTAL PROTEIN, SERUM 7.6 g/dL (6.4-8.2)
--- NOTE | 2017-07-27 07:26 | NUR ---
WIL[facility] RN NOTE PATIENT IN BED , ALERT ,ORIENTED X3, ON 3L NC NO SOB NOTED , ON TELE MONITOR SR 85 WITH PAC , LT AC AND LT HAND HL INTACT NO S \S INFECTION NOTED , BED IN LOWEST AND LOCKED POSITION, WILL CONT TO MONITOR CLOSELY ,PLAN OF CARE DISCUSES WITH PATIENT,NOT IN DISTRESS
[2017-07-27 08:00] VITALS: BP 125/59
[2017-07-27] MEDS: FLUTICASONE/VILANTEROL 1 EACH BLST.W.DEV IH SCH (08:24)
[2017-07-27] MEDS: PREGABALIN 25 MG CAPSULE PO SCH ×2 (08:25→16:29)
[2017-07-27] MEDS: PANTOPRAZOLE 40 MG TABLET.DR PO SCH (08:26)
[2017-07-27] MEDS: METFORMIN 500 MG TABLET PO SCH ×2 (08:26→16:29)
[2017-07-27] MEDS: TAMSULOSIN 0.4 MG CAP.SR.24H PO SCH (08:26)
[2017-07-27] MEDS: ATORVASTATIN 40 MG TABLET PO SCH (08:26)
[2017-07-27] MEDS: CARVEDILOL 12.5 MG TABLET PO SCH ×2 (08:27→16:29)
[2017-07-27] MEDS: BUMETANIDE (1 MG) 1 MG TABLET PO SCH ×2 (08:28→16:29)
[2017-07-27] MEDS: THIAMINE HCL 100 MG TABLET PO SCH (08:28)
[2017-07-27] MEDS: VALSARTAN 80 MG TABLET PO SCH (08:28)
[2017-07-27] MEDS: SERTRALINE HCL 50 MG TABLET PO SCH (08:28)
[2017-07-27] MEDS: FOLIC ACID 1 MG TABLET PO SCH (08:28)
[2017-07-27] MEDS: methylPREDNISolone SOD SUCC 40 MG/ML VIAL IV SCH (08:29)
[2017-07-27 08:30] LABS: LYMPHOCYTES % (MANUAL) 5 % (16-48); MONOCYTES % (MANUAL) 5 % (0-11.0); NEUTROPHILS % (MANUAL) 90 (42-76)
[2017-07-27] MEDS: INSULIN ASPART/LISPRO 100 UNIT/ML CARTRIDGE SQ SCH ×3 (08:33→16:35)
--- NOTE | 2017-07-27 08:53 | NUR ---
WILTON RN NOTE ON BREATHING TX BY RT
--- NOTE | 2017-07-27 09:11 | NUR ---
[facility] RN NOTE \PER DR BERNAL OK TO TRANSFER TO [facility] AND WILL START TO AMBULATE PATIENT
--- NOTE | 2017-07-27 10:30 | NUR ---
MS RN NOTE ABLE TO AMBULATE WELL IN ROOM, NO SO NOTED, ALL NEEDS ATTENDED
--- NOTE | 2017-07-27 11:27 | NUR ---
MS RN NOTE ENDORSED CARE TO JOANNA MANRIQUE
[2017-07-27] MEDS ORDERED: predniSONE 20 MG TABLET PO SCH (11:30)
[2017-07-27 12:00] VITALS: BP 125/59
[2017-07-27 16:00] VITALS: BP 99/45
[2017-07-27 16:29] VITALS: BP 99/45
[2017-07-27] MEDS: LEVOFLOXACIN (500MG) 500 MG TABLET PO SCH (16:29)
--- NOTE | 2017-07-27 16:38 | NUR ---
MS RN NOTES PT REFUSED INSULIN . EXPLAINED RISK AND BENEFITS.
--- NOTE | 2017-07-27 19:22 | NUR ---
MS RN NOTES PT DISCHARGED STABLE. ACCOMPANIED BY . EXIT CARE DONE.
== END 2017-07-27 19:00 | disposition home or self-care (01) | DRG 189 ==
LOC: ER 11:34 → ICU 14:14 → TELE-TD 07-26 10:52 → MEDSG1 07-27 09:16
PROVIDERS: ADMIT Nurse Practitioner Acute Care; ATTEND Nurse Practitioner Acute Care
DX: J96.01 Acute respiratory failure with hypoxia (principal); E43 Unspecified severe protein-calorie malnutrition; I27.20 Pulmonary hypertension, unspecified; I11.0 Hypertensive heart disease with heart failure; I50.32 Chronic diastolic (congestive) heart failure; Z68.41 Body mass index [BMI] 40.0-44.9, adult; E66.2 Morbid (severe) obesity with alveolar hypoventilation; J44.1 Chronic obstructive pulmonary disease with (acute) exacerbation; J96.02 Acute respiratory failure with hypercapnia; K58.9 Irritable bowel syndrome, unspecified; N40.0 Benign prostatic hyperplasia without lower urinary tract symptoms; Z87.891 Personal history of nicotine dependence; Z99.81 Dependence on supplemental oxygen; Z87.01 Personal history of pneumonia (recurrent); E78.5 Hyperlipidemia, unspecified; M19.90 Unspecified osteoarthritis, unspecified site; M79.7 Fibromyalgia; E11.9 Type 2 diabetes mellitus without complications; E55.9 Vitamin D deficiency, unspecified; J40 Bronchitis, not specified as acute or chronic; E05.90 Thyrotoxicosis, unspecified without thyrotoxic crisis or storm; Z79.4 Long term (current) use of insulin; D72.829 Elevated white blood cell count, unspecified; F31.9 Bipolar disorder, unspecified
CPT/HCPCS: 36415; 36600; 71045-TC; 80053-TC; 80061-TC; 82306; 82803-TC; 82962-TC; 83605-TC; 83735-TC; 83880; 84100-TC; 84439-TC; 84443-TC; 84484-TC; 85025-TC; 87040-TC; 87081-TC; 93307-TC; 94799-TC; 99082-TC; A4606; J1650; J1815; J1940; J2920; J2930; J3105; J3475; Z7610

== ENCOUNTER 2017-10-22 16:54 | Inpatient (IN) | payer MEDICARE, OTHER ==
[~2017-10-22] VITALS: Ht 172.7 cm; Wt 117.0 kg
[~2017-10-22 16:54] MED LIST changes: -ALBU18HF2 IH; +ALBU8.5H8 IH; +CYAN100096 PO; +ERGO500014 PO; -EZET10TA14 PO; +FOLI1TAB16 PO; -FURO-145 PO; +HYDR-548 PO; +INSU100V11 SQ; +IPRA0.2S9 IH; -IPRA0.2S9 NEB; -LEVO500T2 PO; +METF-440 PO; -METF500T4 PO; -METH4TAB17 PO; +PANT40TA4 PO; +THIA100T74 PO
--- NOTE | 2017-10-22 17:10 | NUR ---
TELE/RN OPENING NOTE PATIENT ALERT AND ORIENTED 4. TELE MONITOR SR 80. DENIES SOB. BREATHING EVEN AND UNLABORED. DENIES SOB. PATIENT IN NO APPARENT DISTRESS. BED LOW AND LOCKED. SIDE RAILS UP X2. CALL LIGHT WITHIN REACH. WILL COTINUE TO MONITOR.
[2017-10-22 17:27] VITALS: BP 125/71
[2017-10-22 17:30] VITALS: BP 125/71
[2017-10-22] MEDS ORDERED: CHLO473M3 MM (18:44)
--- NOTE | 2017-10-22 19:25 | NUR ---
TELE/RN CLOSING NOTE PATIENT ALERT AND ORIENTED X4. DENIES SOB. RESPIRATION REGULAR AND UNLABORED. DENIES PAIN. RIGHT WRIST G 20 AND LEFT HAND G 20 PATENT AND SALINE LOCKED. BED LOW AND LOCKED. SIDE RAILS UP X2. CALL LIGHT WITHIN REACH. WILL ENDORSE TO SANITARY LANDFILL SUPERVISOR.
[2017-10-22] MEDS ORDERED: IPRATROPIUM NEB FS 0.5 MG/2.5 ML AMPUL.NEB NEB PRN (19:30)
[2017-10-22] MEDS ORDERED: ALBUTEROL FS 2.5 MG/3 ML VIAL.NEB NEB PRN (19:30)
[2017-10-22] MEDS ORDERED: ONDANSETRON HCL/PF 4 MG/2 ML VIAL IVP PRN (19:30)
[2017-10-22] MEDS ORDERED: MAG HYDROX/AL HYDROX/SIMETH 30 ML UDC PO PRN (19:30)
[2017-10-22] MEDS ORDERED: MAGNESIUM HYDROXIDE 30 ML UDC PO PRN (19:30)
[2017-10-22] MEDS ORDERED: DEXTROSE 50%-WATER 50 ML DISP.SYRIN IV PRN (19:30)
[2017-10-22] MEDS: HYDROCODONE/APAP 5/325MG 1 EACH TABLET PO PRN (19:58)
[2017-10-22 20:00] VITALS: BP 155/84
--- NOTE | 2017-10-22 20:00 | NUR ---
tele/rn opening notes PATIENT IN BED, HOB ELEVATED, REQUIRE OXYGEN VIA NC AT 3L , O2 SAT AT 95%, REPOSITION FOR COMFORT, COMPLAINING OF PAIN IN LOWER LEGS, NORCO 5-325 MG PO FOR 7/10 PAIN, PROVIDED B/P CHECK AT 155/84. WILL MONITOR. CALL LIGHTS WITHIN REACH. BED IN LOCK POSITION WILL MONITOR. BLOOD DRAW DONE BY AIRCRAFT PAINTER. CALM AND COOPERATIVE. CHEST XRAY WAS DONE AT BED SIDE.
[2017-10-22 20:01] VITALS: BP 155/84
[2017-10-22 20:22] LABS: HEMATOCRIT 38 % (39-51); HEMOGLOBIN 12.4 g/dL (13.5-17.5); LYMPHOCYTES # (AUTO) 0.7 /CMM (0.8-4.8); LYMPHOCYTES % (AUTO) 5.6 % (20.0-44.0); MEAN CORPUSCULAR HGB CONC 33 g/dl (31.0-36.0); MEAN CORPUSCULAR VOLUME 91 fL (80-96); MONOCYTES # (AUTO) 0.3 /CMM (0.1-1.30); MONOCYTES % (AUTO) 2.5 % (2.0-12.0); NEUTROPHILS # (AUTO) 11.8 /CMM (1.8-8.9); NEUTROPHILS % (AUTO) 91.9 % (43.0-81.0); PLATELET COUNT (AUTO) 154 /CMM (150-450); RDW COEFFICIENT OF VARIATION 14.3 (11.5-15.0); RED BLOOD CELL COUNT(AUTO) 4.17 MIL/uL (4.5-6.0); WHITE BLOOD COUNT (AUTO) 12.9 K/uL (4.3-11.0)
[2017-10-22 20:52] LABS: ALANINE AMINOTRANSFERASE 26 U/L (12-78); ALBUMIN 3.3 g/dL (3.4-5.0); ALKALINE PHOSPHATASE 56 U/L (46-116); ASPARTATE AMINOTRANSFERASE 12 U/L (15-37); BILIRUBIN,TOTAL 0.6 mg/dL (0.2-1.0); CALCIUM, SERUM 9.2 mg/dL (8.5-10.1); CARBON DIOXIDE 32 mmol/L (21-32); CHLORIDE 104 mmol/L (98-107); CREATININE 0.9 mg/dL (0.6-1.3); GLUCOSE 182 mg/dL (74-106); PHOSPHORUS 2.2 mg/dL (2.5-4.9); POTASSIUM 4.3 mmol/L (3.5-5.1); SODIUM SERUM 142 mmol/L (136-145); UREA NITROGEN, BLOOD 18 mg/dL (7-18)
[2017-10-22] MEDS: ENOXAPARIN SODIUM 40 MG/0.4 ML DISP.SYRIN SQ SCH (21:04)
[2017-10-22 21:08] LABS: TROPONIN I < 0.017 ng/mL (0.00-0.056)
[2017-10-22 21:09] LABS: ABG OXYGEN SATURATION 91.6 % (92.0-98.5); ABG PCO2 47.7 mmHg (35.0-45.0); ABG PH 7.409 (7.350-7.450); ABG PO2 63.1 mmHg (75.0-100.0); AaDO2 109.3 mmHg; COHb 0.3 % (0.5-1.5); MetHb 0.5 % (0.0-1.5); O2Hb 90.9 % (94.0-97.0); SITE, ABG Left Radial; VENT MODE, BG Nasal Cannula
[2017-10-22] MEDS: BLOOD SUGAR DIAGNOSTIC 1 EACH STRIP VI SCH (21:10)
[2017-10-22] MEDS ORDERED: HYDROCODONE/APAP 10/325MG 1 EA TABLET PO PRN (21:30)
[2017-10-22] MEDS: *INSULIN REGULAR(HUMULIN R)HUM 100 UNIT/ML VIAL SQ PRN (21:45)
[2017-10-22] MEDS: INSULIN GLARGINE, 100 UNIT/ML CARTRIDGE SQ SCH (21:47)
--- NOTE | 2017-10-22 21:51 | NUR ---
tele/rn notes pain reported 3/10 relieved pain
[2017-10-22] MEDS ORDERED: ZOLPIDEM TARTRATE 5 MG TABLET PO PRN (22:00)
--- NOTE | 2017-10-22 22:04 | NUR ---
md morel to report latest lab co2 47.7 and o2 reading, informed patient uses cpap at home unable to state setting, to inform rt for the cpap order treatment
--- NOTE | 2017-10-22 22:51 | NUR ---
patient requested for medicine for sleep, unable to sleep reported, with md order ambien 5mg po prescribed.
[2017-10-22 23:38] VITALS: BP 147/87
[2017-10-23] VITALS: BP 147/87
[2017-10-23] MEDS: HYDROCODONE/APAP 5/325MG 1 EACH TABLET PO PRN (02:17)
--- NOTE | 2017-10-23 02:17 | NUR ---
patient reported pain generalized with pain /10. administer norco 5-325 mg po
[2017-10-23 04:00] VITALS: BP 152/77
[2017-10-23] MEDS: BLOOD SUGAR DIAGNOSTIC 1 EACH STRIP VI SCH ×4 (06:09→21:46)
--- NOTE | 2017-10-23 06:30 | NUR ---
315-1 PATIENT IN BED, ABLE TO SLEEP INTERMITTENTLY, KEEP COMFORTABLE, MONITORED AND ATTEND TO NEEDS AT ALL TIMES, ON 3L OXYGEN VIA NC, SKIN WARM TO TOUCH, CALL LIGHTS WITHIN REACH,BED IN LOCK POSITION, WILL ENDORSE TO AM RN FOR ADRIANA.
[2017-10-23 07:00] LABS: BASOPHILS % (AUTO) 0.3 % (0.0-2.0); HEMATOCRIT 38 % (39-51); HEMOGLOBIN 12.5 g/dL (13.5-17.5); LYMPHOCYTES # (AUTO) 1.5 /CMM (0.8-4.8); LYMPHOCYTES % (AUTO) 11.8 % (20.0-44.0); MEAN CORPUSCULAR HGB CONC 33 g/dl (31.0-36.0); MEAN CORPUSCULAR VOLUME 91 fL (80-96); MONOCYTES # (AUTO) 0.7 /CMM (0.1-1.30); MONOCYTES % (AUTO) 5.2 % (2.0-12.0); NEUTROPHILS # (AUTO) 10.6 /CMM (1.8-8.9); NEUTROPHILS % (AUTO) 82.7 % (43.0-81.0); PLATELET COUNT (AUTO) 164 /CMM (150-450); RDW COEFFICIENT OF VARIATION 14.8 (11.5-15.0); RED BLOOD CELL COUNT(AUTO) 4.18 MIL/uL (4.5-6.0); WHITE BLOOD COUNT (AUTO) 12.8 K/uL (4.3-11.0)
--- NOTE | 2017-10-23 07:12 | NUR ---
DISPENSING OPERATOR OPENING NOTE RECEIVED BEDSIDE SBAR REPORT ON THE PATIENT. PATIENT IS A/O X3, COOPERATIVE. PATIENT IS AWAKE AND RESPONSIVE IN BED. BED IS LOCKED IN LOWEST POSITION, SIDE RAILS UP X3, BED ALARM IS ON. PATIENT IS AMBULATORY AND ORIENTED TO OWN ABILITIES. CALL LIGHT WITHIN REACH. EDUCATED TO CALL FOR ASSISTANCE USING THE CALL LIGHT. PATIENT VERBALIZED UNDERSTANDING. EXTERNAL TELE MONITOR READING ST 103. SPO2 96% ON 3 L OXYGEN VIA NASAL CANULA PATIENT DENIES PAIN/DISCOMFORT AT THIS TIME. WILL CONTINUE TO ASSESS/MONITOR THROUGHOUT THE SHIFT.
[2017-10-23 07:15] LABS: CALCIUM, SERUM 8.5 mg/dL (8.5-10.1); CREATININE 0.7 mg/dL (0.6-1.3); PHOSPHORUS 3.4 mg/dL (2.5-4.9)
[2017-10-23 07:28] LABS: THYROID STIMULATING HORMONE 1.067 uIU/mL (0.358-3.74)
[2017-10-23 08:00] VITALS: BP 132/81
[2017-10-23] MEDS: THIAMINE HCL 100 MG TABLET PO SCH (08:28)
[2017-10-23] MEDS: SERTRALINE HCL 50 MG TABLET PO SCH (08:28)
[2017-10-23] MEDS: TAMSULOSIN 0.4 MG CAP.SR.24H PO SCH (08:29)
[2017-10-23] MEDS: PANTOPRAZOLE 40 MG VIAL IV SCH (08:30)
[2017-10-23] MEDS: methylPREDNISolone SOD SUCC 40 MG/ML VIAL IV SCH ×3 (08:30→16:43)
[2017-10-23] MEDS: PREGABALIN 100 MG CAPSULE PO SCH ×2 (08:30→16:43)
[2017-10-23] MEDS: ATORVASTATIN 40 MG TABLET PO SCH (08:31)
[2017-10-23] MEDS: FOLIC ACID 1 MG TABLET PO SCH (08:32)
[2017-10-23] MEDS ORDERED: BUMETANIDE (1 MG) 1 MG TABLET PO SCH (09:00)
[2017-10-23] MEDS ORDERED: BUMETANIDE INJ 8 MG in IV NS 0.9% 48 ML IV ONE (09:00)
[2017-10-23] MEDS ORDERED: Medication Not On Formulary EA (Icosapent Ethyl (Vascepa) 4 GM) PO SCH (09:00)
[2017-10-23] MEDS: Z GUARD REMEDY 2 OZ OINT TP PRN (09:29)
[2017-10-23] MEDS: MISOPROSTOL 100 MCG TABLET PO SCH (09:29)
[2017-10-23] MEDS: VALSARTAN 80 MG TABLET PO SCH (09:31)
[2017-10-23] MEDS: CARVEDILOL 12.5 MG TABLET PO SCH ×2 (09:34→16:44)
[2017-10-23] MEDS: POTASSIUM CHLORIDE 10 MEQ TABLET.SA PO SCH (09:41)
--- NOTE | 2017-10-23 10:00 | NUR ---
BOTH IV'S ARE NOT FLUSHING. IV CATHETERS REMOVED WITH THE TIP INTACT. NEW IV CATHETER REINSERTED IN L HAND.
--- NOTE | 2017-10-23 11:45 | NUR ---
PATIENT ACCIDENTLY PULLED THE IV CATHETER OUT WHEN HE GOT OUT OF THE BED TO GO TO THE BATHROOM. NEW 22 G IV CATHETER INSERTED IN RIGHT WRIST BY TAMI RN. PATIENT TOLERATED PROCEDURE WELL.
[2017-10-23] MEDS: INSULIN REGULAR, HUMAN 100 UNIT/ML 3 ML VIAL SQ PRN ×2 (12:54→17:57)
[2017-10-23 16:00] VITALS: BP_SYST 106; BP_SYST 134; BP_DIAS 72; BP_DIAS 75
[2017-10-23] MEDS ORDERED: LINZESS 145 MCG PO SCH (16:00)
[2017-10-23] MEDS: IPRATROPIUM NEB FS 0.5 MG/2.5 ML AMPUL.NEB NEB SCH ×2 (16:02→19:20)
[2017-10-23] MEDS: ALBUTEROL FS 2.5 MG/3 ML VIAL.NEB NEB SCH ×2 (16:02→19:20)
[2017-10-23] MEDS: LEVOFLOXACIN (500MG) 500 MG TABLET PO SCH (16:43)
--- NOTE | 2017-10-23 17:07 | NUR ---
MS RN CLOSING NOTE GAVE BEDSIDE SBAR REPORT ON THE PATIENT. PATIENT IS A/O X3, COOPERATIVE. PATIENT IS AWAKE AND RESPONSIVE IN BED. BED IS LOCKED IN LOWEST POSITION, SIDE RAILS UP X3, BED ALARM IS ON. PATIENT'S FAMILY AT THE BEDSIDE. PATIENT IS AMBULATORY AND ORIENTED TO OWN ABILITIES. CALL LIGHT WITHIN REACH. EDUCATED TO CALL FOR ASSISTANCE USING THE CALL LIGHT. PATIENT VERBALIZED UNDERSTANDING. SPO2 97% ON 3 L OXYGEN VIA NASAL CANULA PATIENT DENIES PAIN/DISCOMFORT AT THIS TIME. WENDORSED TO BURTON GARRETT FOR ADRIANA.
--- NOTE | 2017-10-23 18:23 | NUR ---
MS/RN CLOSING NOTE PATIENT IN BED AWAKE. ALERT AND ORIENTED X4. DENIES SOB. RESPIRATION REGULAR AND UNLABORED. PATIENT IS ON OXYGEN 3L/MIN VIA NASAL CANNULA AND SATURATION IS AT 97%. DENIES PAIN. PATIENT IN NO APPARENT DISTRESS. AMBULATES. VERBAL CUES ARE PROVIDED TO KEEP SAFETY AWARENESS HIGH. LEFT WRIST G 22 PATENT WITH NO S/S INFILTRATION. BED LOW AND LOCKED. SIDE RAILS UP X2. CALL LIGHT WITHIN REACH. WILL ENDORSE TO AU PAIR.
--- NOTE | 2017-10-23 19:30 | NUR ---
PATIENT IN BED, ALERT AND ORIENTED X 4.HOB ELEVATED, ON OXYGEN THERAPY VIA NC AT 3L , NEEDS ATTENDED . CALL LIGHTS WITHIN REACH. BED IN LOW AND LOCK POSITION. WILL CONTINUE TO MONITOR
[2017-10-23 20:00] VITALS: BP 122/72
[2017-10-23 20:23] VITALS: BP 122/72
[2017-10-23 20:31] LABS: CALCIUM, SERUM 9.3 mg/dL (8.5-10.1); CREATININE 0.9 mg/dL (0.6-1.3); POTASSIUM 3.8 mmol/L (3.5-5.1)
[2017-10-23] MEDS: INSULIN GLARGINE, 100 UNIT/ML CARTRIDGE SQ SCH (21:45)
[2017-10-23] MEDS: *INSULIN REGULAR(HUMULIN R)HUM 100 UNIT/ML VIAL SQ PRN (21:47)
[2017-10-23] MEDS: ENOXAPARIN SODIUM 40 MG/0.4 ML DISP.SYRIN SQ SCH (21:48)
--- NOTE | 2017-10-23 21:49 | NUR ---
BS 233,4UNITS OF INSULIN GIVEN PER SLIDING SCALE,PT TOLERATING PO INTAKE, ON CARDIAC DIET
--- NOTE | 2017-10-23 22:01 | NUR ---
PT BS LEVEL IS 95. NO INSULIN COVERAGE PER MD
--- NOTE | 2017-10-23 22:03 | NUR ---
TECH AT BEDSIDE PERFORMING ECHO AND CAROTID DUPLEX. ONCE FINISH WILL DO SWALLOW SCREEN Addendum: 10/24/17 at 0455 by JESSI NEAL RN disregard ABOVE DOCUMENTATION WRONG ENTRY
[2017-10-24] MEDS: IPRATROPIUM NEB FS 0.5 MG/2.5 ML AMPUL.NEB NEB SCH ×7 (00:09→23:56)
[2017-10-24] MEDS: ALBUTEROL FS 2.5 MG/3 ML VIAL.NEB NEB SCH ×7 (00:09→23:56)
[2017-10-24] MEDS: BLOOD SUGAR DIAGNOSTIC 1 EACH STRIP VI SCH ×4 (05:59→21:38)
[2017-10-24] MEDS: INSULIN REGULAR, HUMAN 100 UNIT/ML 3 ML VIAL SQ PRN ×3 (06:20→17:13)
--- NOTE | 2017-10-24 06:20 | NUR ---
RN NOTES: BS 115,NO INSULIN COVERAGE GIVEN PER SLIDING SCALE
[2017-10-24 06:40] LABS: BASOPHILS % (AUTO) 0.2 % (0.0-2.0); HEMATOCRIT 42 % (39-51); HEMOGLOBIN 13.6 g/dL (13.5-17.5); LYMPHOCYTES # (AUTO) 1.2 /CMM (0.8-4.8); LYMPHOCYTES % (AUTO) 9.4 % (20.0-44.0); MEAN CORPUSCULAR HGB CONC 33 g/dl (31.0-36.0); MEAN CORPUSCULAR VOLUME 91 fL (80-96); MONOCYTES # (AUTO) 0.9 /CMM (0.1-1.30); NEUTROPHILS # (AUTO) 10.3 /CMM (1.8-8.9); NEUTROPHILS % (AUTO) 83.4 % (43.0-81.0); PLATELET COUNT (AUTO) 183 /CMM (150-450); RDW COEFFICIENT OF VARIATION 14.4 (11.5-15.0); RED BLOOD CELL COUNT(AUTO) 4.59 MIL/uL (4.5-6.0); WHITE BLOOD COUNT (AUTO) 12.4 K/uL (4.3-11.0)
--- NOTE | 2017-10-24 06:54 | NUR ---
RN CLOSING NOTES: PT IN BED, REMAINS ON CPAP.DENIES ANY PAIN OR DISCOMFORT AT THIS TIME.IV ACCESS REMAINS IN PATENT AND FLUSHING WELL,ON HL.URINAL WITHIN REACH. VS REMAINS STABLE,NEEDS ATTENDED. SAFETY PRECAUTIONS FOR FALL REMAINS ENGAGED,CALL LIGHT IN REACH,WILL ENDORSE TO DAY RN FOR ADRIANA.
[2017-10-24 06:55] LABS: TROPONIN I < 0.017 ng/mL (0.00-0.056)
[2017-10-24 07:02] LABS: ALANINE AMINOTRANSFERASE 40 U/L (12-78); ALBUMIN 3.4 g/dL (3.4-5.0); ALKALINE PHOSPHATASE 58 U/L (46-116); ASPARTATE AMINOTRANSFERASE 23 U/L (15-37); BILIRUBIN,TOTAL 0.8 mg/dL (0.2-1.0); CALCIUM, SERUM 9.2 mg/dL (8.5-10.1); CARBON DIOXIDE 39 mmol/L (21-32); CHLORIDE 98 mmol/L (98-107); CREATININE 0.8 mg/dL (0.6-1.3); GLUCOSE 104 mg/dL (74-106); PHOSPHORUS 4.3 mg/dL (2.5-4.9); POTASSIUM 3.1 mmol/L (3.5-5.1); SODIUM SERUM 144 mmol/L (136-145); TOTAL PROTEIN, SERUM 7.2 g/dL (6.4-8.2); UREA NITROGEN, BLOOD 28 mg/dL (7-18)
--- NOTE | 2017-10-24 07:50 | NUR ---
m/s folded cloth taper: cardio f/u seen and examined by dr. bernstein with new orders. orders acknowledged.
[2017-10-24 08:00] VITALS: BP 115/71
--- NOTE | 2017-10-24 08:05 | NUR ---
m/s marking machine tender: notes r.t. at bedside. bipap turned off at this time by r.t. breathing tx provided. will continue to monitor.
[2017-10-24] MEDS: FOLIC ACID 1 MG TABLET PO SCH (08:49)
[2017-10-24] MEDS: POTASSIUM CHLORIDE 20 MEQ TAB.PRT.SR PO SCH ×3 (08:49→10:55)
[2017-10-24] MEDS: PREGABALIN 100 MG CAPSULE PO SCH ×2 (08:49→16:07)
[2017-10-24] MEDS: CARVEDILOL 12.5 MG TABLET PO SCH ×2 (08:49→16:09)
[2017-10-24] MEDS: ATORVASTATIN 40 MG TABLET PO SCH (08:49)
[2017-10-24] MEDS: VALSARTAN 80 MG TABLET PO SCH (08:50)
[2017-10-24] MEDS: THIAMINE HCL 100 MG TABLET PO SCH (08:50)
[2017-10-24] MEDS: SERTRALINE HCL 50 MG TABLET PO SCH (08:50)
[2017-10-24] MEDS: TAMSULOSIN 0.4 MG CAP.SR.24H PO SCH (08:50)
[2017-10-24] MEDS: POTASSIUM CHLORIDE 10 MEQ TABLET.SA PO SCH (08:51)
[2017-10-24] MEDS: MISOPROSTOL 100 MCG TABLET PO SCH (08:55)
[2017-10-24] MEDS: methylPREDNISolone SOD SUCC 40 MG/ML VIAL IV SCH ×3 (09:17→16:34)
[2017-10-24] MEDS: PANTOPRAZOLE 40 MG VIAL IV SCH (09:17)
--- NOTE | 2017-10-24 11:00 | NUR ---
m/s alteration hand: md visit seen and examined by tony (katrin) at this time. for d'c planning tomorrow. pt aware.
--- NOTE | 2017-10-24 14:00 | NUR ---
m/s poultry sexer: notes resting comfortable in bed. denies sob or any discomfort at this time. will continue to monitor.
[2017-10-24 16:00] VITALS: BP 128/66
[2017-10-24] MEDS: LEVOFLOXACIN (500MG) 500 MG TABLET PO SCH (16:07)
--- NOTE | 2017-10-24 17:15 | NUR ---
m/s freight flow sales leader: notes dinner served. pt sitting up for dinner. instructed to call for assistance. needs attended. call light within reach.
--- NOTE | 2017-10-24 19:00 | NUR ---
m/s service operator: notes report given to sara (rn) for continuity of care.
--- NOTE | 2017-10-24 19:45 | NUR ---
MS LUISITO OPENING NOTES PT SITTING IN BED WITH NO DISTRESS NOTED AT THIS TIME. PT ON O2 NC 3L, HL ON LEFT HAND 22G INTACT AND PATENT.BED IN LOW POSITION, CALL LIGHT WITHIN REACH WILL CONTINUE TO MONITOR
[2017-10-24 20:00] VITALS: BP 126/69
[2017-10-24] MEDS: ACETAMINOPHEN 325 MG TABLET PO PRN (20:31)
--- NOTE | 2017-10-24 20:31 | NUR ---
PT COMPLAINS CONSTIPATION X 5 DAYS AND REQUESTING FOR MEDICATION ,PRN MILK OF MAGNESIA GIVEN . WA COMPLAINS OF MILD MUSCLES PAIN IN UPPER LEG , PRN TYLENOL GIVEN
[2017-10-24] MEDS: ENOXAPARIN SODIUM 40 MG/0.4 ML DISP.SYRIN SQ SCH (21:40)
[2017-10-24] MEDS: INSULIN GLARGINE, 100 UNIT/ML CARTRIDGE SQ SCH (21:41)
[2017-10-24] MEDS: *INSULIN REGULAR(HUMULIN R)HUM 100 UNIT/ML VIAL SQ PRN (21:46)
--- NOTE | 2017-10-24 21:47 | NUR ---
BS IS 240 , 4 UNITS OF REGULAR INSULIN GIVEN PER SLIDING SCALE
--- NOTE | 2017-10-24 22:00 | NUR ---
RN NOTES: PT PREFERS TO USE THE BATHROOM, INSTEAD OF USING THE URINAL
--- NOTE | 2017-10-25 01:30 | NUR ---
RT NOTE POST TX, PATIENT REFUSING BIPAP. PATIENT MADE AWARE OF BENEFITS OF BIPAP BUT STILL REFUSING. PATIENT PLACED BACK ON 3L NC. PATIENT HAS NO SIGNS OF RESPIRATORY DISTRESS NOTED. PRIMARY NURSE IS AWARE. SPO2 96%. WILL CONTINUE TO MONITOR PATIENT.
[2017-10-25] MEDS: ACETAMINOPHEN 325 MG TABLET PO PRN ×2 (03:36→11:08)
[2017-10-25] MEDS: IPRATROPIUM NEB FS 0.5 MG/2.5 ML AMPUL.NEB NEB SCH ×6 (03:48→23:51)
[2017-10-25] MEDS: ALBUTEROL FS 2.5 MG/3 ML VIAL.NEB NEB SCH ×6 (03:48→23:51)
[2017-10-25] MEDS: BLOOD SUGAR DIAGNOSTIC 1 EACH STRIP VI SCH ×4 (05:44→21:24)
[2017-10-25 06:32] LABS: BASOPHILS % (AUTO) 0.2 % (0.0-2.0); HEMATOCRIT 43 % (39-51); LYMPHOCYTES # (AUTO) 1.6 /CMM (0.8-4.8); MEAN CORPUSCULAR HGB CONC 33 g/dl (31.0-36.0); MEAN CORPUSCULAR VOLUME 91 fL (80-96); MONOCYTES # (AUTO) 0.8 /CMM (0.1-1.30); NEUTROPHILS % (AUTO) 81.8 % (43.0-81.0); PLATELET COUNT (AUTO) 196 /CMM (150-450); RDW COEFFICIENT OF VARIATION 14.1 (11.5-15.0); RED BLOOD CELL COUNT(AUTO) 4.65 MIL/uL (4.5-6.0); WHITE BLOOD COUNT (AUTO) 13.4 K/uL (4.3-11.0)
--- NOTE | 2017-10-25 06:47 | NUR ---
RN CLOSING NOTES: PT RESTING IN BED.IV ACCESS REMAINS IN PATENT AND FLUSHING WELL,URINAL WITHIN REACH. VS REMAINS STABLE,NEEDS ATTENDED. SAFETY PRECAUTIONS FOR FALL REMAINS ENGAGED. D/C PLANNING TODAY. CALL LIGHT IN REACH,WILL ENDORSE TO DAY RN FOR ADRIANA.
[2017-10-25 06:55] LABS: CREATININE 0.7 mg/dL (0.6-1.3)
--- NOTE | 2017-10-25 07:30 | NUR ---
RN OPENING NOTES RECEIVED PATIENT AWAKE WATCHING TV. NOT IN ANY FORM OF DISTRESS, DENIED PAIN OR DISCOMFORT AT THIS TIME. VS STABLE. ON 3LPM O2 VIA NC, TOLERATING WELL. SAFETY PRECAUTIONS IN PLACE. BED IN LOW/LOCKED POSITION, SIDERAILS UP, CALL LIGHT IN REACH. WILL CONTINUE TO MONITOR ACCORDINGLY
[2017-10-25 08:00] VITALS: BP 132/80
[2017-10-25] MEDS: PREGABALIN 100 MG CAPSULE PO SCH ×2 (09:21→16:32)
[2017-10-25] MEDS: POTASSIUM CHLORIDE 10 MEQ TABLET.SA PO SCH (09:21)
[2017-10-25] MEDS: THIAMINE HCL 100 MG TABLET PO SCH (09:22)
[2017-10-25] MEDS: ATORVASTATIN 40 MG TABLET PO SCH (09:22)
[2017-10-25] MEDS: TAMSULOSIN 0.4 MG CAP.SR.24H PO SCH (09:22)
[2017-10-25] MEDS: FOLIC ACID 1 MG TABLET PO SCH (09:22)
[2017-10-25] MEDS: SERTRALINE HCL 50 MG TABLET PO SCH (09:22)
[2017-10-25] MEDS: VALSARTAN 80 MG TABLET PO SCH (09:23)
[2017-10-25] MEDS: CARVEDILOL 12.5 MG TABLET PO SCH ×2 (09:24→16:33)
[2017-10-25] MEDS: MISOPROSTOL 100 MCG TABLET PO SCH (09:27)
[2017-10-25] MEDS: methylPREDNISolone SOD SUCC 40 MG/ML VIAL IV SCH ×2 (09:29→12:28)
[2017-10-25] MEDS: PANTOPRAZOLE 40 MG VIAL IV SCH (09:29)
--- NOTE | 2017-10-25 11:10 | NUR ---
PATIENT REPORTED HE HAD A BOWEL MOVEMENT THIS MORNING.
[2017-10-25] MEDS: *INSULIN REGULAR(HUMULIN R)HUM 100 UNIT/ML VIAL SQ PRN ×2 (12:24→21:29)
[2017-10-25 16:00] VITALS: BP 128/71
[2017-10-25] MEDS: LEVOFLOXACIN (500MG) 500 MG TABLET PO SCH (16:34)
[2017-10-25] MEDS ORDERED: predniSONE 20 MG TABLET PO SCH (17:00)
[2017-10-25] MEDS: INSULIN REGULAR, HUMAN 100 UNIT/ML 3 ML VIAL SQ PRN (17:07)
--- NOTE | 2017-10-25 19:02 | NUR ---
RN CLOSING NOTES PATIENT IN STABLE CONDITION. ALL NEEDS ATTENDED AND PROVIDED. KEPT PATIENT SAFE AND COMFORTABLE. BED IN LOW/LOCKED POSITION, SIDERAILS UPX2, CALL LIGHT IN REACH. ENDORSED TO NIGHT RN FOR ADRIANA.
--- NOTE | 2017-10-25 19:43 | NUR ---
MS LUISITO OPENING NOTES PT SITTING IN BED, PT ON O2 NC 3L, HL ON LEFT HAND 22G INTACT AND PATENT. WITH NO DISTRESS NOTED AT THIS TIME. BED IN LOW POSITION, CALL LIGHT WITHIN REACH WILL CONTINUE TO MONITOR
[2017-10-25 20:00] VITALS: BP 109/65
[2017-10-25] MEDS: INSULIN GLARGINE, 100 UNIT/ML CARTRIDGE SQ SCH (21:26)
[2017-10-25] MEDS: ENOXAPARIN SODIUM 40 MG/0.4 ML DISP.SYRIN SQ SCH (21:31)
--- NOTE | 2017-10-26 | NUR ---
rn notes: seen pt sleeping appears comfortable, will continue monitoring pt
--- NOTE | 2017-10-26 02:15 | NUR ---
RT NOTE: PT TOOK OFF BIPAP. PLACED BACK ON 2LNC AND TOLERATING WELL SAT 92%. PT IS SLEEPING COMFORTABLY, NO DISTRESS NOTED AT THIS TIME. NURSE AWARE. WILL CONTINUE TO MONITOR. Addendum: 10/26/17 at 0227 by BENNETT GUNDERSON RT Amended: Links added.
[2017-10-26] MEDS: IPRATROPIUM NEB FS 0.5 MG/2.5 ML AMPUL.NEB NEB SCH ×4 (03:30→15:44)
[2017-10-26] MEDS: ALBUTEROL FS 2.5 MG/3 ML VIAL.NEB NEB SCH ×4 (03:30→15:44)
[2017-10-26] MEDS: BLOOD SUGAR DIAGNOSTIC 1 EACH STRIP VI SCH ×3 (05:26→17:05)
[2017-10-26] MEDS: *INSULIN REGULAR(HUMULIN R)HUM 100 UNIT/ML VIAL SQ PRN ×2 (06:22→12:34)
--- NOTE | 2017-10-26 06:49 | NUR ---
315-1 RN CLOSING NOTES: PT RESTING IN BED.IV ACCESS REMAINS PATENT, INTACT AND FLUSHING WELL. VS REMAINS STABLE,NEEDS ATTENDED. SAFETY PRECAUTIONS FOR FALL REMAINS ENGAGED. D/C PLANNING TODAY. CALL LIGHT IN REACH,WILL ENDORSE TO DAY RN FOR ADRIANA.
[2017-10-26 07:24] LABS: BASOPHILS % (AUTO) 0.2 % (0.0-2.0); HEMATOCRIT 42 % (39-51); HEMOGLOBIN 13.8 g/dL (13.5-17.5); LYMPHOCYTES # (AUTO) 1.4 /CMM (0.8-4.8); LYMPHOCYTES % (AUTO) 9.9 % (20.0-44.0); MEAN CORPUSCULAR HGB CONC 33 g/dl (31.0-36.0); MEAN CORPUSCULAR VOLUME 91 fL (80-96); MONOCYTES # (AUTO) 0.9 /CMM (0.1-1.30); MONOCYTES % (AUTO) 6.5 % (2.0-12.0); NEUTROPHILS # (AUTO) 12.2 /CMM (1.8-8.9); NEUTROPHILS % (AUTO) 83.4 % (43.0-81.0); PLATELET COUNT (AUTO) 210 /CMM (150-450); RDW COEFFICIENT OF VARIATION 14.8 (11.5-15.0); RED BLOOD CELL COUNT(AUTO) 4.59 MIL/uL (4.5-6.0); WHITE BLOOD COUNT (AUTO) 14.6 K/uL (4.3-11.0)
[2017-10-26 07:49] LABS: CALCIUM, SERUM 9.2 mg/dL (8.5-10.1); CREATININE 0.7 mg/dL (0.6-1.3)
[2017-10-26 08:00] VITALS: BP 130/73
--- NOTE | 2017-10-26 08:14 | NUR ---
MS RN OPENING NOTE RECEIVED BEDSIDE SBAR REPORT ON THE PATIENT. PATIENT IS A/O X3, COOPERATIVE. PATIENT IS AWAKE AND RESPONSIVE IN BED. BED IS LOCKED IN LOWEST POSITION, SIDE RAILS UP X3, BED ALARM IS ON. PATIENT IS AMBULATORY AND ORIENTED TO OWN ABILITIES. CALL LIGHT WITHIN REACH. EDUCATED TO CALL FOR ASSISTANCE USING THE CALL LIGHT. PATIENT VERBALIZED UNDERSTANDING. SPO2 95% ON 2 L OXYGEN VIA NASAL CANULA PATIENT DENIES PAIN/DISCOMFORT AT THIS TIME. WILL CONTINUE TO ASSESS/MONITOR THROUGHOUT THE SHIFT.
[2017-10-26] MEDS: ATORVASTATIN 40 MG TABLET PO SCH (09:00)
[2017-10-26] MEDS: MISOPROSTOL 100 MCG TABLET PO SCH (09:59)
[2017-10-26] MEDS: SERTRALINE HCL 50 MG TABLET PO SCH (10:00)
[2017-10-26] MEDS: THIAMINE HCL 100 MG TABLET PO SCH (10:01)
[2017-10-26] MEDS: FOLIC ACID 1 MG TABLET PO SCH (10:01)
[2017-10-26] MEDS: PREGABALIN 100 MG CAPSULE PO SCH ×2 (10:01→17:04)
[2017-10-26] MEDS: POTASSIUM CHLORIDE 10 MEQ TABLET.SA PO SCH (10:03)
[2017-10-26] MEDS: TAMSULOSIN 0.4 MG CAP.SR.24H PO SCH (10:03)
[2017-10-26] MEDS: CARVEDILOL 12.5 MG TABLET PO SCH ×2 (10:03→17:04)
[2017-10-26] MEDS: PANTOPRAZOLE 40 MG VIAL IV SCH (10:04)
[2017-10-26] MEDS: VALSARTAN 80 MG TABLET PO SCH (10:05)
[2017-10-26 16:00] VITALS: BP 120/68
[2017-10-26] MEDS: LEVOFLOXACIN (500MG) 500 MG TABLET PO SCH (16:57)
[2017-10-26 17:04] VITALS: BP 120/68
[2017-10-26] MEDS: INSULIN REGULAR, HUMAN 100 UNIT/ML 3 ML VIAL SQ PRN (17:10)
[2017-10-26] MEDS: Z GUARD REMEDY 2 OZ OINT TP PRN (17:10)
--- NOTE | 2017-10-26 18:15 | NUR ---
Discharge order RN called [facility]. Gave SBAR telephone [facility] Patient is going to Room 12 bed B. Iv catheter removed with the tip intact. Patient tolerated procedure well. Oclusive dressing applied. No bleeding noted. All belongings accounted for. Patient's family/daughter aware of patient's discharge and transfer to SNF. All discharge papers and orders in folder. Given to the ambulance staff.
--- NOTE | 2017-10-26 18:26 | NUR ---
Left the unit in stable condition via ambulance gurney accompanied by the ambulance staff. Skin intact. VS WNL.
[2017-10-27] MEDS ORDERED: predniSONE 20 MG TABLET PO SCH (09:00)
== END 2017-10-26 18:25 | DRG 189 ==
LOC: TELE 16:54 → MED 10-23 10:51
PROVIDERS: ADMIT Hospitalist; ATTEND Hospitalist
PROC: 5A09357 Assistance with Respiratory Ventilation, Less than 24 Consecutive Hours, Continuous Positive Airway Pressure (ICD-10-PCS; principal; 2017-10-24)
PROC: 5A09357 Assistance with Respiratory Ventilation, Less than 24 Consecutive Hours, Continuous Positive Airway Pressure (ICD-10-PCS; 2017-10-26)
DX: J96.21 Acute and chronic respiratory failure with hypoxia (principal); I50.32 Chronic diastolic (congestive) heart failure; J44.1 Chronic obstructive pulmonary disease with (acute) exacerbation; E66.2 Morbid (severe) obesity with alveolar hypoventilation; E44.1 Mild protein-calorie malnutrition; I11.0 Hypertensive heart disease with heart failure; K58.9 Irritable bowel syndrome, unspecified; E78.5 Hyperlipidemia, unspecified; N40.0 Benign prostatic hyperplasia without lower urinary tract symptoms; M79.7 Fibromyalgia; E11.9 Type 2 diabetes mellitus without complications; D72.829 Elevated white blood cell count, unspecified; T38.0X5A Adverse effect of glucocorticoids and synthetic analogues, initial encounter; Z87.891 Personal history of nicotine dependence; F32.9 Major depressive disorder, single episode, unspecified; Z68.39 Body mass index [BMI] 39.0-39.9, adult; E78.1 Pure hyperglyceridemia; E87.6 Hypokalemia; J96.22 Acute and chronic respiratory failure with hypercapnia
CPT/HCPCS: 36415; 36600; 71045-TC; 80048-TC; 80053-TC; 80061-TC; 82746; 82962-TC; 83735-TC; 84100-TC; 84443-TC; 84484-TC; 85025-TC; 94660; A4216; A4606; C9113; J1650; J1815; J2920; J3490; Z7610

== ENCOUNTER 2024-01-15 23:16 | Inpatient (IN) | payer MEDICARE, OTHER ==
[~2024-01-15] VITALS: Ht 172.7 cm; Wt 101.6 kg
[~2024-01-15 23:16] MED LIST changes: +ALBU2.5V13 NEB; -BUME2TAB3 PO; +BUME2TAB7 PO; +CHLO473M3 MM; +HYDR-4354 PO; -HYDR-548 PO; -MISO200T4 PO; +MISO200T62 PO; -PANT40TA4 PO; +PANT40TA49 PO; +PRED20TA PO
[2024-01-15] MEDS ORDERED: methylPREDNISolone SOD SUCC 125 MG/2ML VIAL ONE (23:33)
[2024-01-15] MEDS: methylPREDNISolone SOD SUCC 125 MG/2ML VIAL IV ONE (23:34)
[2024-01-15 23:59] LABS: BASOPHILS % (AUTO) 0.3 % (0.0-2.0); EOSINOPHILS # (AUTO) 0.4 K/uL (0.0-0.7); EOSINOPHILS % (AUTO) 5.6 % (0.0-6.0); HEMATOCRIT 34 % (39-51); HEMOGLOBIN 10.6 g/dL (13.5-17.5); LYMPHOCYTES # (AUTO) 1.8 K/uL (0.8-4.8); LYMPHOCYTES % (AUTO) 27.4 % (20.0-44.0); MEAN CORPUSCULAR HEMOGLOBIN 29 PG (26.0-33.0); MEAN CORPUSCULAR HGB CONC 31 g/dl (31.0-36.0); MEAN CORPUSCULAR VOLUME 92 fL (80-96); MONOCYTES # (AUTO) 0.6 K/uL (0.1-1.30); MONOCYTES % (AUTO) 9.5 % (2.0-12.0); NEUTROPHILS # (AUTO) 3.8 K/uL (1.8-8.9); NEUTROPHILS % (AUTO) 57.2 % (43.0-81.0); PLATELET COUNT (AUTO) 154 K/uL (150-450); RED BLOOD CELL COUNT(AUTO) 3.72 MIL/uL (4.5-6.0); RED CELL DISTRIBUTION WIDTH 16.7 % (11.5-15.0); WHITE BLOOD COUNT (AUTO) 6.6 K/uL (4.3-11.0)
[2024-01-16] VITALS (22 sets, daily range): BP systolic 105–151; BP diastolic 49–79; TEMP 97.7–98.6; O2SAT 89–98
[2024-01-16 00:01] LABS: ABG BASE EXCESS 9.3 mmol/L (-2.0-3.0); ABG OXYGEN SATURATION 97.6 % (94.0-98.0); ABG PCO2 101.1 mmHg (35.0-48.0); ABG PH 7.218 (7.350-7.450); ABG TOTAL HEMOGLOBIN 11.4 G/dL (13.5-17.5); COHb 0.3 % (0.5-1.5); MetHb 0.3 % (0.0-1.5); SITE, ABG Right Radial; VENT MODE, BG BiPAP: ipap18/epap 6
[2024-01-16 00:20] LABS: ALANINE AMINOTRANSFERASE 23 U/L (12-78); ALBUMIN 3.5 g/dL (3.4-5.0); ALKALINE PHOSPHATASE 75 U/L (46-116); ASPARTATE AMINOTRANSFERASE 27 U/L (15-37); BILIRUBIN,DIRECT 0.1 mg/dL (0.0-0.2); BILIRUBIN,TOTAL 0.4 mg/dL (0.2-1.0); CALCIUM, SERUM 8.7 mg/dL (8.5-10.1); CHLORIDE 106 mmol/L (98-107); CREATININE 0.9 mg/dL (0.6-1.3); GLUCOSE 124 mg/dL (74-106); NT-PRO BNP 179 pg/mL (0-125); POTASSIUM 5.2 mmol/L (3.5-5.1); SODIUM SERUM 147 mmol/L (136-145); TOTAL PROTEIN, SERUM 7.7 g/dL (6.4-8.2); UREA NITROGEN, BLOOD 29 mg/dL (7-18)
[2024-01-16 00:21] LABS: CARBON DIOXIDE 41 mmol/L (21-32)
[2024-01-16 00:24] LABS: LACTIC ACID 0.5 mmol/L (0.4-2.0)
[2024-01-16 00:29] LABS: INR 1.08 (0.91-1.10); PARTIAL THROMBOPLASTIN TIME 23.1 SEC (24.3-34.3); PROTHROMBIN TIME 11.4 SECS (9.2-11.1)
[2024-01-16] MEDS: CALCIUM CHLORIDE 1,000 MG/10 ML DISP.SYRIN IV ONE (01:00)
[2024-01-16] MEDS: SODIUM BICARBONATE SYR 50 MEQ/50 ML DISP.SYRIN IV ONE (01:00)
[2024-01-16] MEDS ORDERED: Z GUARD REMEDY 4 OZ OINT TP PRN (01:30)
[2024-01-16] MEDS ORDERED: ALBUTEROL FS 2.5 MG/3 ML VIAL.NEB NEB PRN (01:30)
[2024-01-16] MEDS ORDERED: NITROGLYCERIN 30 GM TUBE TP PRN ×2 (02:00→10:30)
[2024-01-16 02:48] LABS: APPEARANCE,URINE CLOUDY (CLEAR); BILIRUBIN,URINE NEGATIVE (NEGATIVE); BLOOD, URINE TRACE-INTA Ery/uL (NEGATIVE); COLOR,URINE YELLOW (YELLOW); KETONES,URINE NEGATIVE (NEGATIVE); LEUKOCYTE ESTERASE ,URINE 1+ (NEGATIVE); NITRITE, URINE NEGATIVE (NEGATIVE); PROTEIN,URINE TRACE mg/dl (NEGATIVE); UGLUCOSE NEGATIVE (NEGATIVE); UROBILINOGEN,URINE 0.2 EU/dL (0.2)
[2024-01-16 02:52] LABS: ADD URINE CULTURE YES; BACTERIA,URINE Few /HPF (None Seen); SQUAMOUS EPITHELIAL CELL,UR Rare /HPF (None Seen)
[2024-01-16] MEDS ORDERED: SODIUM BICARBONATE SYR 50 MEQ/50 ML DISP.SYRIN ONE (02:52)
[2024-01-16] MEDS ORDERED: CALCIUM CHLORIDE 1,000 MG/10 ML DISP.SYRIN ONE (02:52)
[2024-01-16] MEDS ORDERED: INSULIN REGULAR, HUMAN 100 UNIT/ML 10 ML VIAL SQ SCH (07:30)
[2024-01-16] MEDS: BLOOD SUGAR DIAGNOSTIC 1 EACH STRIP IN SCH ×2 (08:13→12:40)
[2024-01-16 08:17] LABS: BASOPHILS % (AUTO) 0.1 % (0.0-2.0); EOSINOPHILS % (AUTO) 0.2 % (0.0-6.0); HEMATOCRIT 33 % (39-51); HEMOGLOBIN 10.2 g/dL (13.5-17.5); LYMPHOCYTES # (AUTO) 0.5 K/uL (0.8-4.8); LYMPHOCYTES % (AUTO) 8.2 % (20.0-44.0); MEAN CORPUSCULAR HEMOGLOBIN 28 PG (26.0-33.0); MEAN CORPUSCULAR HGB CONC 31 g/dl (31.0-36.0); MEAN CORPUSCULAR VOLUME 91 fL (80-96); MONOCYTES # (AUTO) 0.1 K/uL (0.1-1.30); MONOCYTES % (AUTO) 1.1 % (2.0-12.0); NEUTROPHILS # (AUTO) 5.7 K/uL (1.8-8.9); NEUTROPHILS % (AUTO) 90.4 % (43.0-81.0); PLATELET COUNT (AUTO) 155 K/uL (150-450); RED BLOOD CELL COUNT(AUTO) 3.64 MIL/uL (4.5-6.0); RED CELL DISTRIBUTION WIDTH 15.7 % (11.5-15.0); WHITE BLOOD COUNT (AUTO) 6.3 K/uL (4.3-11.0)
[2024-01-16 08:33] LABS: CHOLESTEROL 134 mg/dL (<200); HDL CHOLESTEROL 72 mg/dL (40-60); LDL 48 mg/dL (0-99); TRIGLYCERIDES 26 mg/dL (30-150)
[2024-01-16 08:39] LABS: ALBUMIN 3.6 g/dL (3.4-5.0); BILIRUBIN,DIRECT 0.1 mg/dL (0.0-0.2); BILIRUBIN,TOTAL 0.4 mg/dL (0.2-1.0); CALCIUM, SERUM 9.6 mg/dL (8.5-10.1); MAGNESIUM 1.9 mg/dL (1.8-2.4); PHOSPHORUS 3.9 mg/dL (2.5-4.9); POTASSIUM 5.5 mmol/L (3.5-5.1); TOTAL PROTEIN, SERUM 7.9 g/dL (6.4-8.2)
[2024-01-16 08:44] LABS: THYROID STIMULATING HORMONE 0.91 uIU/mL (0.358-3.74)
[2024-01-16] MEDS ORDERED: OMEP20CA15 PO (08:49)
[2024-01-16] MEDS ORDERED: MELO-107 PO (08:49)
[2024-01-16] MEDS ORDERED: HYDR-500 PO (08:49)
[2024-01-16] MEDS ORDERED: METO25TA4 PO (08:49)
[2024-01-16] MEDS ORDERED: GABA300C PO (08:49)
[2024-01-16] MEDS ORDERED: FURO20TA4 PO (08:49)
[2024-01-16] MEDS ORDERED: methylPREDNISolone SOD SUCC 40 MG/ML VIAL IV SCH (09:00)
[2024-01-16] MEDS: PANTOPRAZOLE 40 MG VIAL IV SCH (10:27)
[2024-01-16] MEDS: FUROSEMIDE 20 MG/2 ML VIAL IV SCH (10:28)
[2024-01-16] MEDS ORDERED: DEXTROSE 50%-WATER 50 ML DISP.SYRIN IV PRN (10:30)
[2024-01-16] MEDS: ALBUTEROL HALF STRENGTH 1.25 MG/3 ML VIAL.NEB NEB SCH (13:05)
[2024-01-16] MEDS: IPRATROPIUM NEB FS 0.5 MG/2.5 ML AMPUL.NEB NEB SCH (13:05)
[2024-01-16] MEDS: GABAPENTIN 300 MG CAPSULE PO SCH (16:24)
[2024-01-16] MEDS: TRIAMCINOLONE OINT 0.1% 15 GM TUBE TP SCH (16:25)
[2024-01-16] MEDS: CEFTRIAXONE 1 G in IV D5W 50 ML IV SCH (20:01)
[2024-01-16] MEDS: ZOLPIDEM TARTRATE 5 MG TABLET PO PRN (22:59)
[2024-01-17] VITALS (32 sets, daily range): BP systolic 104–135; BP diastolic 44–93; TEMP 98–98.6; O2SAT 88–100
[2024-01-17 04:54] LABS: BASOPHILS % (AUTO) 0.3 % (0.0-2.0); EOSINOPHILS # (AUTO) 0.1 K/uL (0.0-0.7); HEMATOCRIT 34 % (39-51); HEMOGLOBIN 10.7 g/dL (13.5-17.5); LYMPHOCYTES # (AUTO) 1.7 K/uL (0.8-4.8); LYMPHOCYTES % (AUTO) 20.4 % (20.0-44.0); MEAN CORPUSCULAR HEMOGLOBIN 29 PG (26.0-33.0); MEAN CORPUSCULAR HGB CONC 31 g/dl (31.0-36.0); MEAN CORPUSCULAR VOLUME 93 fL (80-96); MONOCYTES # (AUTO) 0.8 K/uL (0.1-1.30); MONOCYTES % (AUTO) 9.4 % (2.0-12.0); NEUTROPHILS # (AUTO) 5.8 K/uL (1.8-8.9); NEUTROPHILS % (AUTO) 68.9 % (43.0-81.0); PLATELET COUNT (AUTO) 100 K/uL (150-450); WHITE BLOOD COUNT (AUTO) 8.4 K/uL (4.3-11.0)
[2024-01-17 05:01] LABS: CALCIUM, SERUM 9.1 mg/dL (8.5-10.1); CREATININE 0.8 mg/dL (0.6-1.3)
[2024-01-17] MEDS: diphenhydrAMINE HCL 50 MG/ML VIAL IV ONE (06:51)
[2024-01-17] MEDS: METOPROLOL SUCCINATE 25 MG TAB.SR.24H PO SCH (08:15)
[2024-01-17] MEDS: SERTRALINE HCL 50 MG TABLET PO SCH (08:16)
[2024-01-17] MEDS: ATORVASTATIN 40 MG TABLET PO SCH (08:16)
[2024-01-17] MEDS: ENOXAPARIN SODIUM 40 MG/0.4 ML DISP.SYRIN SQ SCH (08:17)
[2024-01-17] MEDS ORDERED: OMEPRAZOLE 20 MG CAPSULE.DR PO SCH (09:00)
[2024-01-17] MEDS: INSULIN REGULAR, HUMAN 100 UNIT/ML 3 ML VIAL SQ PRN (17:37)
[2024-01-17] MEDS: MINERAL OIL/PETROL OINT 396 GM JAR TP PRN (21:14)
[2024-01-18] VITALS (20 sets, daily range): BP systolic 104–143; BP diastolic 49–117; TEMP 98.1–98.7; O2SAT 90–96
[2024-01-18] MEDS: HYDROCODONE/APAP 10/325MG TABLET PO PRN ×2 (00:01→12:58)
[2024-01-18] MEDS: PANTOPRAZOLE 40 MG TABLET.DR PO SCH (08:45)
[2024-01-18 10:37] LABS: BASOPHILS % (AUTO) 0.2 % (0.0-2.0); EOSINOPHILS # (AUTO) 0.2 K/uL (0.0-0.7); EOSINOPHILS % (AUTO) 2.9 % (0.0-6.0); HEMATOCRIT 35 % (39-51); HEMOGLOBIN 11.4 g/dL (13.5-17.5); LYMPHOCYTES # (AUTO) 1.5 K/uL (0.8-4.8); LYMPHOCYTES % (AUTO) 21.4 % (20.0-44.0); MEAN CORPUSCULAR HEMOGLOBIN 29 PG (26.0-33.0); MEAN CORPUSCULAR HGB CONC 32 g/dl (31.0-36.0); MEAN CORPUSCULAR VOLUME 89 fL (80-96); MONOCYTES # (AUTO) 0.5 K/uL (0.1-1.30); MONOCYTES % (AUTO) 7.4 % (2.0-12.0); NEUTROPHILS # (AUTO) 4.7 K/uL (1.8-8.9); NEUTROPHILS % (AUTO) 68.1 % (43.0-81.0); PLATELET COUNT (AUTO) 158 K/uL (150-450); RED BLOOD CELL COUNT(AUTO) 3.96 MIL/uL (4.5-6.0); RED CELL DISTRIBUTION WIDTH 15.7 % (11.5-15.0); WHITE BLOOD COUNT (AUTO) 6.9 K/uL (4.3-11.0)
[2024-01-18 10:59] LABS: CALCIUM, SERUM 9.5 mg/dL (8.5-10.1); CREATININE 0.9 mg/dL (0.6-1.3); POTASSIUM 4.8 mmol/L (3.5-5.1)
[2024-01-18] MEDS ORDERED: hydrOXYzine HCL SYRUP 10 MG/5 ML UDC PO PRN (11:00)
[2024-01-18 12:19] LABS: ABG BASE EXCESS 14.5 mmol/L (-2.0-3.0); ABG OXYGEN SATURATION 89.4 % (94.0-98.0); ABG PCO2 84.3 mmHg (35.0-48.0); ABG PH 7.337 (7.350-7.450); ABG PO2 60.9 mmHg (83.0-108.0); AaDO2 83.3 mmHg; COHb 1.1 % (0.5-1.5); MetHb 0.3 % (0.0-1.5); O2Hb 88.1 % (94.0-97.0); SITE, ABG Right Radial; VENT MODE, BG 4L NC
[2024-01-18] MEDS: hydrOXYzine PAMOATE 25 MG CAPSULE PO PRN (20:23)
[2024-01-19] VITALS (14 sets, daily range): BP systolic 121–136; BP diastolic 51–64; TEMP 97.2–97.5; O2SAT 90–98
[2024-01-19 07:29] LABS: BASOPHILS % (AUTO) 0.3 % (0.0-2.0); EOSINOPHILS # (AUTO) 0.3 K/uL (0.0-0.7); HEMATOCRIT 40 % (39-51); HEMOGLOBIN 12.4 g/dL (13.5-17.5); LYMPHOCYTES # (AUTO) 1.3 K/uL (0.8-4.8); LYMPHOCYTES % (AUTO) 21.3 % (20.0-44.0); MEAN CORPUSCULAR HEMOGLOBIN 28 PG (26.0-33.0); MEAN CORPUSCULAR HGB CONC 32 g/dl (31.0-36.0); MEAN CORPUSCULAR VOLUME 90 fL (80-96); MONOCYTES # (AUTO) 0.7 K/uL (0.1-1.30); MONOCYTES % (AUTO) 10.6 % (2.0-12.0); NEUTROPHILS % (AUTO) 62.8 % (43.0-81.0); PLATELET COUNT (AUTO) 150 K/uL (150-450); RED BLOOD CELL COUNT(AUTO) 4.41 MIL/uL (4.5-6.0); RED CELL DISTRIBUTION WIDTH 15.6 % (11.5-15.0); WHITE BLOOD COUNT (AUTO) 6.3 K/uL (4.3-11.0)
[2024-01-19 07:36] LABS: CALCIUM, SERUM 9.4 mg/dL (8.5-10.1); CREATININE 0.9 mg/dL (0.6-1.3); POTASSIUM 4.8 mmol/L (3.5-5.1)
[2024-01-20] VITALS (11 sets, daily range): BP systolic 121–128; BP diastolic 51–65; TEMP 97.5–98.1; O2SAT 90–100
[2024-01-20 13:14] LABS: CALCIUM, SERUM 9.5 mg/dL (8.5-10.1); CREATININE 0.9 mg/dL (0.6-1.3); POTASSIUM 4.4 mmol/L (3.5-5.1)
[2024-01-20 13:15] LABS: BASOPHILS % (AUTO) 0.2 % (0.0-2.0); EOSINOPHILS # (AUTO) 0.4 K/uL (0.0-0.7); HEMATOCRIT 37 % (39-51); HEMOGLOBIN 11.9 g/dL (13.5-17.5); LYMPHOCYTES # (AUTO) 1.5 K/uL (0.8-4.8); LYMPHOCYTES % (AUTO) 23.7 % (20.0-44.0); MEAN CORPUSCULAR HEMOGLOBIN 29 PG (26.0-33.0); MEAN CORPUSCULAR HGB CONC 32 g/dl (31.0-36.0); MEAN CORPUSCULAR VOLUME 89 fL (80-96); MONOCYTES # (AUTO) 0.5 K/uL (0.1-1.30); MONOCYTES % (AUTO) 7.1 % (2.0-12.0); PLATELET COUNT (AUTO) 146 K/uL (150-450); RED BLOOD CELL COUNT(AUTO) 4.12 MIL/uL (4.5-6.0); RED CELL DISTRIBUTION WIDTH 15.3 % (11.5-15.0); WHITE BLOOD COUNT (AUTO) 6.4 K/uL (4.3-11.0)
[2024-01-20] MEDS: ACETAMINOPHEN 325 MG TABLET PO PRN (21:33)
[2024-01-21] VITALS (12 sets, daily range): BP systolic 127–144; BP diastolic 50–70; TEMP 97.6–98.4; O2SAT 88–96
[2024-01-21 06:51] LABS: BASOPHILS % (AUTO) 0.3 % (0.0-2.0); EOSINOPHILS # (AUTO) 0.4 K/uL (0.0-0.7); EOSINOPHILS % (AUTO) 6.9 % (0.0-6.0); HEMATOCRIT 36 % (39-51); HEMOGLOBIN 11.9 g/dL (13.5-17.5); LYMPHOCYTES # (AUTO) 1.7 K/uL (0.8-4.8); LYMPHOCYTES % (AUTO) 26.4 % (20.0-44.0); MEAN CORPUSCULAR HEMOGLOBIN 29 PG (26.0-33.0); MEAN CORPUSCULAR HGB CONC 33 g/dl (31.0-36.0); MEAN CORPUSCULAR VOLUME 87 fL (80-96); MONOCYTES # (AUTO) 0.6 K/uL (0.1-1.30); MONOCYTES % (AUTO) 8.6 % (2.0-12.0); NEUTROPHILS # (AUTO) 3.8 K/uL (1.8-8.9); NEUTROPHILS % (AUTO) 57.8 % (43.0-81.0); PLATELET COUNT (AUTO) 169 K/uL (150-450); RED BLOOD CELL COUNT(AUTO) 4.09 MIL/uL (4.5-6.0); RED CELL DISTRIBUTION WIDTH 15.1 % (11.5-15.0); WHITE BLOOD COUNT (AUTO) 6.5 K/uL (4.3-11.0)
[2024-01-21 07:05] LABS: POTASSIUM 4.5 mmol/L (3.5-5.1)
[2024-01-21 07:36] LABS: MAGNESIUM 2.2 mg/dL (1.8-2.4); PHOSPHORUS 4.1 mg/dL (2.5-4.9)
[2024-01-21] MEDS: GENTAMICIN 400 MG in IV D5W 100 ML IV SCH (13:51)
[2024-01-21] MEDS ORDERED: GENTAMICIN 480 MG in IV D5W 100 ML IV SCH (14:00)
[2024-01-21] MEDS: diphenhydrAMINE HCL ELIX 25 MG/10 ML UDC PO PRN (23:13)
[2024-01-22 08:01] VITALS: O2SAT 95
[2024-01-22 08:17] LABS: CALCIUM, SERUM 9.4 mg/dL (8.5-10.1); CREATININE 0.9 mg/dL (0.6-1.3); MAGNESIUM 2.3 mg/dL (1.8-2.4); PHOSPHORUS 3.8 mg/dL (2.5-4.9); POTASSIUM 5.1 mmol/L (3.5-5.1)
[2024-01-22] MEDS: DOXYCYCLINE HYCLATE (100 MG) 100 MG TABLET PO SCH (08:25)
[2024-01-22] MEDS: MELOXICAM 7.5 MG TABLET PO SCH (08:25)
[2024-01-22 10:00] VITALS: BP 122/66; TEMP 97.7; O2SAT 92
[2024-01-22 10:17] LABS: BASOPHILS % (AUTO) 0.4 % (0.0-2.0); EOSINOPHILS # (AUTO) 0.5 K/uL (0.0-0.7); HEMATOCRIT 39 % (39-51); HEMOGLOBIN 12.3 g/dL (13.5-17.5); LYMPHOCYTES # (AUTO) 1.8 K/uL (0.8-4.8); LYMPHOCYTES % (AUTO) 24.8 % (20.0-44.0); MEAN CORPUSCULAR HEMOGLOBIN 28 PG (26.0-33.0); MEAN CORPUSCULAR HGB CONC 32 g/dl (31.0-36.0); MEAN CORPUSCULAR VOLUME 89 fL (80-96); MONOCYTES # (AUTO) 0.6 K/uL (0.1-1.30); MONOCYTES % (AUTO) 8.2 % (2.0-12.0); NEUTROPHILS # (AUTO) 4.4 K/uL (1.8-8.9); NEUTROPHILS % (AUTO) 59.6 % (43.0-81.0); RED BLOOD CELL COUNT(AUTO) 4.35 MIL/uL (4.5-6.0); WHITE BLOOD COUNT (AUTO) 7.4 K/uL (4.3-11.0)
[2024-01-22] MEDS ORDERED: DOXY100T2 PO (11:51)
[2024-01-22] MEDS ORDERED: [UNRECOGNIZED DRUG - CODE] IV (11:51)
[2024-01-22] MEDS ORDERED: ALBU1.25 NEB (11:51)
[2024-01-22] MEDS ORDERED: PRED20TA PO (11:51)
[2024-01-22 12:38] LABS: PLATELET COUNT (AUTO) 123 K/uL (150-450)
== END 2024-01-22 15:35 | DRG 189 ==
LOC: ER 23:35 → ICU 01-16 01:24 → TELE1 01-16 04:09 → TELE-TD 01-16 05:43 → ICU 01-16 08:42 → TELE-TD 01-18 16:34 → TELE1 01-19 17:02 → MEDSG1 01-20 09:53
PROVIDERS: ADMIT Nurse Practitioner Family; ATTEND Nurse Practitioner Acute Care
PROC: 5A09357 Assistance with Respiratory Ventilation, Less than 24 Consecutive Hours, Continuous Positive Airway Pressure (ICD-10-PCS; principal; 2024-01-16)
DX: J96.21 Acute and chronic respiratory failure with hypoxia (principal); I50.33 Acute on chronic diastolic (congestive) heart failure; J44.1 Chronic obstructive pulmonary disease with (acute) exacerbation; E87.0 Hyperosmolality and hypernatremia; E66.2 Morbid (severe) obesity with alveolar hypoventilation; N39.0 Urinary tract infection, site not specified; Z16.24 Resistance to multiple antibiotics; I11.0 Hypertensive heart disease with heart failure; J96.22 Acute and chronic respiratory failure with hypercapnia; D64.9 Anemia, unspecified; B96.1 Klebsiella pneumoniae [K. pneumoniae] as the cause of diseases classified elsewhere; E11.9 Type 2 diabetes mellitus without complications; E78.5 Hyperlipidemia, unspecified; E87.5 Hyperkalemia; F31.9 Bipolar disorder, unspecified; M79.7 Fibromyalgia; Z79.84 Long term (current) use of oral hypoglycemic drugs; Z87.891 Personal history of nicotine dependence; Z79.4 Long term (current) use of insulin; Z68.34 Body mass index [BMI] 34.0-34.9, adult; L30.8 Other specified dermatitis; L29.9 Pruritus, unspecified; N40.0 Benign prostatic hyperplasia without lower urinary tract symptoms
CPT/HCPCS: 36415; 36600; 71045-TC; 80048-TC; 80061-TC; 80076-TC; 80170-TC; 81001; 82803-TC; 82962-TC; 83605-TC; 83735-TC; 83880; 84100-TC; 84443-TC; 84484-TC; 85025-TC; 85730-TC; 87040-TC; 87086-TC; 93307-TC; 94760-TC; 94762-TC; 94799-TC; A4223; G0378; J0696; J1200; J1580; J1650; J1815; J1940; J2470; J2919; J3490; J7050; J7060; Q0163; Q0177

== ENCOUNTER 2024-06-07 10:06 | Inpatient (IN) | payer MEDICARE, OTHER ==
[2024-06-07] VITALS (22 sets, daily range): BP systolic 107–162; BP diastolic 56–78; TEMP 98–98.5; O2SAT 74–99
[~2024-06-07] VITALS: Ht 165.1 cm; Wt 103.2 kg
[~2024-06-07 10:06] MED LIST changes: +ALBU1.25 NEB; -ALBU2.5V13 NEB; -ALBU8.5H8 IH; -BUME2TAB7 PO; -CARV12.52 PO; -CHLO473M3 MM; -CYAN100096 PO; +DOXY100T2 PO; -ERGO500014 PO; -FLUT1DIS5 IH; -FOLI1TAB16 PO; +FURO20TA4 PO; +GABA300C PO; -HYDR-4354 PO; +HYDR-500 PO; -ICOS1CAP PO; -INSU100V11 SQ; -IPRA0.2S9 IH; -LINA145C PO; +MELO-107 PO; -METF-440 PO; +METO25TA4 PO; -MISO200T62 PO; +OMEP20CA15 PO; -PANT40TA49 PO; -POTA10TA15 PO; -PREG50CA PO; -TAMS0.4C34 PO; -THIA100T74 PO; -VALS80TA2 PO; +[UNRECOGNIZED DRUG - CODE] IV
[2024-06-07] MEDS ORDERED: IPRATROPIUM NEB FS 0.5 MG/2.5 ML AMPUL.NEB ONE (10:50)
[2024-06-07] MEDS ORDERED: ALBUTEROL FS 2.5 MG/3 ML VIAL.NEB ONE (10:50)
[2024-06-07] MEDS: IPRATROPIUM NEB FS 0.5 MG/2.5 ML AMPUL.NEB NEB ONE (10:53)
[2024-06-07] MEDS: ALBUTEROL FS 2.5 MG/3 ML VIAL.NEB CONTNEB ONE (10:53)
[2024-06-07] MEDS ORDERED: predniSONE 20 MG TABLET ONE (11:36)
[2024-06-07] MEDS: predniSONE 20 MG TABLET PO ONE (11:37)
[2024-06-07 11:59] LABS: BASOPHILS # (AUTO) 0.1 K/uL (0.0-0.2); BASOPHILS % (AUTO) 1.2 % (0.0-2.0); EOSINOPHILS # (AUTO) 0.2 K/uL (0.0-0.7); EOSINOPHILS % (AUTO) 3.2 % (0.0-6.0); HEMATOCRIT 34 % (39-51); HEMOGLOBIN 10.9 g/dL (13.5-17.5); LYMPHOCYTES # (AUTO) 1.7 K/uL (0.8-4.8); LYMPHOCYTES % (AUTO) 22.5 % (20.0-44.0); MEAN CORPUSCULAR HEMOGLOBIN 27 PG (26.0-33.0); MEAN CORPUSCULAR HGB CONC 32 g/dl (31.0-36.0); MEAN CORPUSCULAR VOLUME 86 fL (80-96); MONOCYTES # (AUTO) 0.7 K/uL (0.1-1.30); NEUTROPHILS # (AUTO) 4.8 K/uL (1.8-8.9); NEUTROPHILS % (AUTO) 64.1 % (43.0-81.0); PLATELET COUNT (AUTO) 175 K/uL (150-450); RED BLOOD CELL COUNT(AUTO) 3.97 MIL/uL (4.5-6.0); RED CELL DISTRIBUTION WIDTH 16.4 % (11.5-15.0); WHITE BLOOD COUNT (AUTO) 7.5 K/uL (4.3-11.0)
[2024-06-07 12:21] LABS: CALCIUM, SERUM 9.3 mg/dL (8.5-10.1); CHLORIDE 102 mmol/L (98-107); CREATININE 0.8 mg/dL (0.6-1.3); GLUCOSE 129 mg/dL (74-106); POTASSIUM 4.3 mmol/L (3.5-5.1); SODIUM SERUM 145 mmol/L (136-145); UREA NITROGEN, BLOOD 23 mg/dL (7-18)
[2024-06-07 12:29] LABS: LACTIC ACID 1.3 mmol/L (0.4-2.0)
[2024-06-07 12:46] LABS: CARBON DIOXIDE 42 mmol/L (21-32)
[2024-06-07 13:17] LABS: ABG OXYGEN SATURATION 94.2 % (94.0-98.0); ABG PCO2 101.1 mmHg (35.0-48.0); ABG PH 7.224 (7.350-7.450); ABG PO2 81.1 mmHg (83.0-108.0); ABG TOTAL HEMOGLOBIN 11.2 G/dL (13.5-17.5); COHb 0.2 % (0.5-1.5); MetHb 0.3 % (0.0-1.5); O2Hb 93.7 % (94.0-97.0); SITE, ABG RIGHT RADIAL
[2024-06-07] MEDS ORDERED: ACETAMINOPHEN 325 MG TABLET PO PRN (13:30)
[2024-06-07] MEDS ORDERED: MAG HYDROX/AL HYDROX/SIMETH 30 ML UDC PO PRN (13:30)
[2024-06-07] MEDS ORDERED: ALBUTEROL FS 2.5 MG/3 ML VIAL.NEB NEB PRN (13:30)
[2024-06-07] MEDS ORDERED: IPRATROPIUM NEB FS 0.5 MG/2.5 ML AMPUL.NEB NEB PRN (13:30)
[2024-06-07] MEDS ORDERED: ONDANSETRON HCL/PF 4 MG/2 ML VIAL IVP PRN (13:30)
[2024-06-07] MEDS: ALBUTEROL FS 2.5 MG/3 ML VIAL.NEB NEB SCH (14:30)
[2024-06-07] MEDS: IPRATROPIUM NEB FS 0.5 MG/2.5 ML AMPUL.NEB NEB SCH (14:30)
[2024-06-07] MEDS ORDERED: METO25TA6 PO (14:44)
[2024-06-07] MEDS ORDERED: SENN-291 PO (14:44)
[2024-06-07] MEDS ORDERED: AMLO-213 PO (14:44)
[2024-06-07] MEDS ORDERED: TRAZ-257 PO (14:44)
[2024-06-07] MEDS ORDERED: CLON1TAB12 PO (14:44)
[2024-06-07] MEDS ORDERED: FERR325T23 PO (14:44)
[2024-06-07] MEDS ORDERED: OLME1TAB92 PO (14:44)
[2024-06-07] MEDS ORDERED: ICOS0.5C PO (14:44)
[2024-06-07] MEDS ORDERED: TRIA0.2585 PO (14:44)
[2024-06-07] MEDS ORDERED: CLOP75TA15 PO (14:44)
[2024-06-07] MEDS ORDERED: FOLI0.8T3 PO (14:44)
[2024-06-07] MEDS: methylPREDNISolone SOD SUCC 40 MG/ML VIAL IV SCH (15:47)
[2024-06-07] MEDS: PANTOPRAZOLE 40 MG VIAL IV SCH (15:47)
[2024-06-07] MEDS: CEFEPIME 2 GM in IV D5W 100 ML IV SCH (16:08)
[2024-06-07] MEDS: HYDROCODONE/APAP 10/325MG TABLET PO PRN (21:56)
[2024-06-07 22:24] LABS: ABG BASE EXCESS 11.1 mmol/L (-2.0-3.0); ABG OXYGEN SATURATION 95.1 % (94.0-98.0); ABG PCO2 79.9 mmHg (35.0-48.0); ABG PH 7.316 (7.350-7.450); ABG TOTAL HEMOGLOBIN 10.9 G/dL (13.5-17.5); COHb 0.3 % (0.5-1.5); MetHb 0.2 % (0.0-1.5); O2Hb 94.6 % (94.0-97.0); SITE, ABG RIGHT RADIAL
[2024-06-07] MEDS: NICOTINE PATCH (21MG) 21 MG PATCH.TD24 TD SCH (23:35)
[2024-06-08] VITALS (41 sets, daily range): BP systolic 97–140; BP diastolic 20–88; TEMP 97.7–98.5; O2SAT 69–99
[2024-06-08 04:24] LABS: CREATININE 0.8 mg/dL (0.6-1.3); MAGNESIUM 1.9 mg/dL (1.8-2.4); PHOSPHORUS 3.4 mg/dL (2.5-4.9)
[2024-06-08 04:45] LABS: HEMATOCRIT 32 % (39-51); HEMOGLOBIN 10.2 g/dL (13.5-17.5); LYMPHOCYTES # (AUTO) 0.5 K/uL (0.8-4.8); LYMPHOCYTES % (AUTO) 5.3 % (20.0-44.0); MEAN CORPUSCULAR HEMOGLOBIN 27 PG (26.0-33.0); MEAN CORPUSCULAR HGB CONC 32 g/dl (31.0-36.0); MEAN CORPUSCULAR VOLUME 84 fL (80-96); MONOCYTES # (AUTO) 0.4 K/uL (0.1-1.30); MONOCYTES % (AUTO) 4.7 % (2.0-12.0); PLATELET COUNT (AUTO) 151 K/uL (150-450); RED BLOOD CELL COUNT(AUTO) 3.76 MIL/uL (4.5-6.0); RED CELL DISTRIBUTION WIDTH 16.4 % (11.5-15.0); WHITE BLOOD COUNT (AUTO) 8.9 K/uL (4.3-11.0)
[2024-06-08] MEDS ORDERED: OMEPRAZOLE 20 MG CAPSULE.DR PO SCH (07:30)
[2024-06-08] MEDS: PANTOPRAZOLE 40 MG TABLET.DR PO SCH (08:25)
[2024-06-08] MEDS: AMLODIPINE BESYLATE 10 MG TABLET PO SCH (08:51)
[2024-06-08] MEDS: METOPROLOL TARTRATE 25 MG TABLET PO SCH ×2 (08:52→21:15)
[2024-06-08] MEDS: SERTRALINE HCL 50 MG TABLET PO SCH (08:52)
[2024-06-08] MEDS: FERROUS SULFATE (325 MG) 325 MG/TAB TABLET PO SCH (08:52)
[2024-06-08] MEDS: SENNOSIDES 8.6 MG TABLET PO SCH (08:52)
[2024-06-08] MEDS: GABAPENTIN 300 MG CAPSULE PO SCH ×2 (08:53→21:16)
[2024-06-08] MEDS: FOLIC ACID 1 MG TABLET PO SCH (08:53)
[2024-06-08] MEDS: clonazePAM 1 MG TABLET PO SCH ×2 (08:53→21:18)
[2024-06-08] MEDS: LOSARTAN/HCTZ 50-12.5MG/ 1 EA TABLET PO SCH (08:54)
[2024-06-08] MEDS ORDERED: TRIAZOLAM 0.125 MG TABLET PO SCH ×2 (09:00)
[2024-06-08] MEDS ORDERED: ICOSAPENT ETHYL PO SCH (09:00)
[2024-06-08] MEDS ORDERED: Medication Not On Formulary EA (Olmesartan/Hydrochlorothiazide (Olmesartan-Hctz 40-25 mg PO SCH (09:00)
[2024-06-08] MEDS ORDERED: LOSARTAN/HCTZ 50-12.5MG/ 1 EA TABLET PO SCH (09:00)
[2024-06-08] MEDS ORDERED: TRIAZOLAM 0.25 MG PO SCH (09:00)
[2024-06-08] MEDS: hydrOXYzine PAMOATE 25 MG CAPSULE PO SCH ×2 (14:05→21:16)
[2024-06-08] MEDS: ATORVASTATIN 40 MG TABLET PO SCH (21:15)
[2024-06-08] MEDS: CLOPIDOGREL BISULFATE 75 MG TABLET PO SCH (21:15)
[2024-06-08] MEDS: TRAZODONE 50 MG TABLET PO SCH (21:16)
[2024-06-09] VITALS (28 sets, daily range): BP systolic 101–146; BP diastolic 45–88; TEMP 97.3–98.4; O2SAT 85–98
[2024-06-09 03:18] LABS: ABG BASE EXCESS 11.3 mmol/L (-2.0-3.0); ABG OXYGEN SATURATION 92.1 % (94.0-98.0); ABG PCO2 161.6 mmHg (35.0-48.0); ABG PH 7.078 (7.350-7.450); ABG PO2 80.7 mmHg (83.0-108.0); ABG TOTAL HEMOGLOBIN 12.4 G/dL (13.5-17.5); COHb 0.1 % (0.5-1.5); MetHb 0.2 % (0.0-1.5); O2Hb 91.8 % (94.0-97.0); SITE, ABG LEFT RADIAL
[2024-06-09 04:44] LABS: BASOPHILS % (AUTO) 0.1 % (0.0-2.0); HEMATOCRIT 34 % (39-51); HEMOGLOBIN 10.8 g/dL (13.5-17.5); LYMPHOCYTES # (AUTO) 0.3 K/uL (0.8-4.8); LYMPHOCYTES % (AUTO) 2.6 % (20.0-44.0); MEAN CORPUSCULAR HEMOGLOBIN 28 PG (26.0-33.0); MEAN CORPUSCULAR HGB CONC 32 g/dl (31.0-36.0); MEAN CORPUSCULAR VOLUME 85 fL (80-96); MONOCYTES # (AUTO) 0.2 K/uL (0.1-1.30); NEUTROPHILS # (AUTO) 9.2 K/uL (1.8-8.9); NEUTROPHILS % (AUTO) 95.3 % (43.0-81.0); PLATELET COUNT (AUTO) 179 K/uL (150-450); RED BLOOD CELL COUNT(AUTO) 3.92 MIL/uL (4.5-6.0); RED CELL DISTRIBUTION WIDTH 17.2 % (11.5-15.0); WHITE BLOOD COUNT (AUTO) 9.6 K/uL (4.3-11.0)
[2024-06-09 05:05] LABS: CALCIUM, SERUM 8.5 mg/dL (8.5-10.1); CREATININE 0.9 mg/dL (0.6-1.3); POTASSIUM 5.5 mmol/L (3.5-5.1)
[2024-06-09 05:24] LABS: ABG BASE EXCESS 11.4 mmol/L (-2.0-3.0); ABG OXYGEN SATURATION 91.8 % (94.0-98.0); ABG PCO2 96.2 mmHg (35.0-48.0); ABG PH 7.257 (7.350-7.450); ABG TOTAL HEMOGLOBIN 11.7 G/dL (13.5-17.5); COHb 0.4 % (0.5-1.5); MetHb 0.3 % (0.0-1.5); O2Hb 91.2 % (94.0-97.0); SITE, ABG RIGHT RADIAL
[2024-06-09 09:09] LABS: ABG OXYGEN SATURATION 92.6 % (94.0-98.0); ABG PCO2 93.8 mmHg (35.0-48.0); ABG PH 7.303 (7.350-7.450); ABG PO2 66.1 mmHg (83.0-108.0); ABG TOTAL HEMOGLOBIN 12.3 G/dL (13.5-17.5); COHb 0.6 % (0.5-1.5); SITE, ABG LEFT RADIAL
[2024-06-09] MEDS: ENOXAPARIN SODIUM 40 MG/0.4 ML DISP.SYRIN SQ SCH (11:00)
[2024-06-10] VITALS (27 sets, daily range): BP systolic 94–150; BP diastolic 55–119; TEMP 97.3–99; O2SAT 86–100
[2024-06-10] MEDS: SILVER SULFADIAZINE 50 GM JAR TP PRN (08:35)
[2024-06-10 08:48] LABS: ABG BASE EXCESS 17.4 mmol/L (-2.0-3.0); ABG OXYGEN SATURATION 93.8 % (94.0-98.0); ABG PCO2 64.6 mmHg (35.0-48.0); ABG PH 7.453 (7.350-7.450); ABG PO2 66.2 mmHg (83.0-108.0); ABG TOTAL HEMOGLOBIN 11.4 G/dL (13.5-17.5); COHb 0.2 % (0.5-1.5); MetHb 0.3 % (0.0-1.5); O2Hb 93.3 % (94.0-97.0); SITE, ABG LEFT RADIAL
[2024-06-10 13:39] LABS: HEMATOCRIT 34 % (39-51); HEMOGLOBIN 10.9 g/dL (13.5-17.5); LYMPHOCYTES # (AUTO) 0.6 K/uL (0.8-4.8); LYMPHOCYTES % (AUTO) 7.1 % (20.0-44.0); MEAN CORPUSCULAR HEMOGLOBIN 28 PG (26.0-33.0); MEAN CORPUSCULAR HGB CONC 32 g/dl (31.0-36.0); MEAN CORPUSCULAR VOLUME 86 fL (80-96); MONOCYTES # (AUTO) 0.6 K/uL (0.1-1.30); MONOCYTES % (AUTO) 6.2 % (2.0-12.0); NEUTROPHILS # (AUTO) 7.9 K/uL (1.8-8.9); NEUTROPHILS % (AUTO) 86.7 % (43.0-81.0); PLATELET COUNT (AUTO) 197 K/uL (150-450); RED BLOOD CELL COUNT(AUTO) 3.94 MIL/uL (4.5-6.0); WHITE BLOOD COUNT (AUTO) 9.1 K/uL (4.3-11.0)
[2024-06-10 14:04] LABS: CALCIUM, SERUM 9.1 mg/dL (8.5-10.1); CREATININE 0.9 mg/dL (0.6-1.3)
[2024-06-11] VITALS (22 sets, daily range): BP systolic 93–144; BP diastolic 46–86; TEMP 97–98.3; O2SAT 83–99
[2024-06-11 05:49] LABS: HEMATOCRIT 35 % (39-51); HEMOGLOBIN 11.5 g/dL (13.5-17.5); LYMPHOCYTES # (AUTO) 0.8 K/uL (0.8-4.8); LYMPHOCYTES % (AUTO) 8.1 % (20.0-44.0); MEAN CORPUSCULAR HEMOGLOBIN 27 PG (26.0-33.0); MEAN CORPUSCULAR HGB CONC 33 g/dl (31.0-36.0); MEAN CORPUSCULAR VOLUME 83 fL (80-96); MONOCYTES # (AUTO) 0.6 K/uL (0.1-1.30); MONOCYTES % (AUTO) 6.1 % (2.0-12.0); NEUTROPHILS # (AUTO) 8.9 K/uL (1.8-8.9); NEUTROPHILS % (AUTO) 85.8 % (43.0-81.0); PLATELET COUNT (AUTO) 214 K/uL (150-450); RED BLOOD CELL COUNT(AUTO) 4.21 MIL/uL (4.5-6.0); RED CELL DISTRIBUTION WIDTH 16.9 % (11.5-15.0); WHITE BLOOD COUNT (AUTO) 10.4 K/uL (4.3-11.0)
[2024-06-11] MEDS: methylPREDNISolone SOD SUCC 40 MG/ML VIAL ONE (05:55)
[2024-06-11 06:17] LABS: CREATININE 0.9 mg/dL (0.6-1.3); POTASSIUM 4.4 mmol/L (3.5-5.1)
[2024-06-11 07:34] LABS: CALCIUM, SERUM 8.7 mg/dL (8.5-10.1)
[2024-06-11 08:26] LABS: ABG BASE EXCESS 11.5 mmol/L (-2.0-3.0); ABG OXYGEN SATURATION 88.6 % (94.0-98.0); ABG PCO2 65.2 mmHg (35.0-48.0); ABG PH 7.394 (7.350-7.450); ABG PO2 56.5 mmHg (83.0-108.0); ABG TOTAL HEMOGLOBIN 12.9 G/dL (13.5-17.5); COHb 0.8 % (0.5-1.5); MetHb 0.3 % (0.0-1.5); O2Hb 87.6 % (94.0-97.0); SITE, ABG RIGHT RADIAL
[2024-06-11] MEDS: VALPROIC ACID 250 MG/5 ML UDC PO SCH (10:00)
[2024-06-11] MEDS: diphenhydrAMINE HCL 50 MG/ML VIAL IM PRN (14:50)
[2024-06-11] MEDS: HALOPERIDOL LACTATE INJ 5 MG/ML VIAL IM PRN (14:51)
[2024-06-11] MEDS: risperiDONE 1 MG TABLET PO SCH (17:35)
[2024-06-12] VITALS (15 sets, daily range): BP systolic 100–142; BP diastolic 44–95; TEMP 97.3–98.2; O2SAT 90–100
[2024-06-12 06:10] LABS: BASOPHILS % (AUTO) 0.2 % (0.0-2.0); EOSINOPHILS % (AUTO) 0.2 % (0.0-6.0); HEMATOCRIT 39 % (39-51); HEMOGLOBIN 12.7 g/dL (13.5-17.5); LYMPHOCYTES # (AUTO) 1.7 K/uL (0.8-4.8); LYMPHOCYTES % (AUTO) 19.5 % (20.0-44.0); MEAN CORPUSCULAR HEMOGLOBIN 27 PG (26.0-33.0); MEAN CORPUSCULAR HGB CONC 32 g/dl (31.0-36.0); MEAN CORPUSCULAR VOLUME 84 fL (80-96); MONOCYTES # (AUTO) 1.1 K/uL (0.1-1.30); MONOCYTES % (AUTO) 13.2 % (2.0-12.0); NEUTROPHILS # (AUTO) 5.8 K/uL (1.8-8.9); NEUTROPHILS % (AUTO) 66.9 % (43.0-81.0); PLATELET COUNT (AUTO) 160 K/uL (150-450); RED BLOOD CELL COUNT(AUTO) 4.67 MIL/uL (4.5-6.0); RED CELL DISTRIBUTION WIDTH 16.9 % (11.5-15.0); WHITE BLOOD COUNT (AUTO) 8.7 K/uL (4.3-11.0)
[2024-06-12 06:40] LABS: CALCIUM, SERUM 8.8 mg/dL (8.5-10.1); CREATININE 0.9 mg/dL (0.6-1.3); POTASSIUM 3.7 mmol/L (3.5-5.1)
[2024-06-13] VITALS (14 sets, daily range): BP systolic 98–127; BP diastolic 44–71; TEMP 97.2–98.6; O2SAT 90–95
[2024-06-13 07:22] LABS: BASOPHILS % (AUTO) 0.1 % (0.0-2.0); EOSINOPHILS # (AUTO) 0.1 K/uL (0.0-0.7); EOSINOPHILS % (AUTO) 1.2 % (0.0-6.0); HEMATOCRIT 36 % (39-51); HEMOGLOBIN 11.9 g/dL (13.5-17.5); LYMPHOCYTES # (AUTO) 1.3 K/uL (0.8-4.8); LYMPHOCYTES % (AUTO) 14.6 % (20.0-44.0); MEAN CORPUSCULAR HEMOGLOBIN 28 PG (26.0-33.0); MEAN CORPUSCULAR HGB CONC 33 g/dl (31.0-36.0); MEAN CORPUSCULAR VOLUME 84 fL (80-96); MONOCYTES # (AUTO) 0.8 K/uL (0.1-1.30); MONOCYTES % (AUTO) 9.3 % (2.0-12.0); NEUTROPHILS # (AUTO) 6.7 K/uL (1.8-8.9); NEUTROPHILS % (AUTO) 74.8 % (43.0-81.0); PLATELET COUNT (AUTO) 151 K/uL (150-450); RED BLOOD CELL COUNT(AUTO) 4.28 MIL/uL (4.5-6.0); RED CELL DISTRIBUTION WIDTH 17.2 % (11.5-15.0); WHITE BLOOD COUNT (AUTO) 8.9 K/uL (4.3-11.0)
[2024-06-13 09:17] LABS: CALCIUM, SERUM 8.8 mg/dL (8.5-10.1); CREATININE 0.9 mg/dL (0.6-1.3); POTASSIUM 4.8 mmol/L (3.5-5.1)
[2024-06-13] MEDS: SILVER SULFADIAZINE 50 GM JAR TP SCH (16:38)
[2024-06-14] VITALS (14 sets, daily range): BP systolic 103–151; BP diastolic 59–69; TEMP 97–98.7; O2SAT 88–99
[2024-06-14 07:26] LABS: EOSINOPHILS # (AUTO) 0.3 K/uL (0.0-0.7); EOSINOPHILS % (AUTO) 3.3 % (0.0-6.0); HEMATOCRIT 37 % (39-51); LYMPHOCYTES # (AUTO) 1.2 K/uL (0.8-4.8); LYMPHOCYTES % (AUTO) 11.5 % (20.0-44.0); MEAN CORPUSCULAR HEMOGLOBIN 27 PG (26.0-33.0); MEAN CORPUSCULAR HGB CONC 33 g/dl (31.0-36.0); MEAN CORPUSCULAR VOLUME 84 fL (80-96); MONOCYTES % (AUTO) 9.8 % (2.0-12.0); NEUTROPHILS # (AUTO) 7.6 K/uL (1.8-8.9); NEUTROPHILS % (AUTO) 75.4 % (43.0-81.0); PLATELET COUNT (AUTO) 133 K/uL (150-450); RED CELL DISTRIBUTION WIDTH 16.7 % (11.5-15.0); WHITE BLOOD COUNT (AUTO) 10.1 K/uL (4.3-11.0)
[2024-06-14 08:00] LABS: CREATININE 0.9 mg/dL (0.6-1.3); POTASSIUM 4.2 mmol/L (3.5-5.1)
[2024-06-14 09:28] LABS: ABG BASE EXCESS 11.8 mmol/L (-2.0-3.0); ABG OXYGEN SATURATION 89.5 % (94.0-98.0); ABG PO2 60.8 mmHg (83.0-108.0); ABG TOTAL HEMOGLOBIN 12.4 G/dL (13.5-17.5); COHb 0.3 % (0.5-1.5); MetHb 0.1 % (0.0-1.5); O2Hb 89.1 % (94.0-97.0); SITE, ABG RIGHT RADIAL
[2024-06-14 15:27] LABS: ABG BASE EXCESS 15.2 mmol/L (-2.0-3.0); ABG OXYGEN SATURATION 87.2 % (94.0-98.0); ABG PCO2 86.1 mmHg (35.0-48.0); ABG PH 7.334 (7.350-7.450); ABG PO2 56.7 mmHg (83.0-108.0); ABG TOTAL HEMOGLOBIN 12.3 G/dL (13.5-17.5); COHb 0.3 % (0.5-1.5); MetHb 0.2 % (0.0-1.5); O2Hb 86.8 % (94.0-97.0); SITE, ABG LEFT RADIAL
[2024-06-14] MEDS: risperiDONE 1 MG TABLET PO SCH (16:08)
[2024-06-14] MEDS: VALPROIC ACID 250 MG/5 ML UDC PO SCH (22:12)
[2024-06-15] VITALS (9 sets, daily range): BP systolic 96–135; BP diastolic 56–64; TEMP 97–99; O2SAT 84–93
[2024-06-15 09:49] LABS: ABG BASE EXCESS 13.8 mmol/L (-2.0-3.0); ABG OXYGEN SATURATION 67.7 % (94.0-98.0); ABG PH 7.355 (7.350-7.450); ABG PO2 35.7 mmHg (83.0-108.0); ABG TOTAL HEMOGLOBIN 12.1 G/dL (13.5-17.5); COHb 1.1 % (0.5-1.5); SITE, ABG LEFT RADIAL
[2024-06-15] MEDS: Z GUARD REMEDY 4 OZ OINT TP PRN (12:39)
[2024-06-16] VITALS (21 sets, daily range): BP systolic 83–160; BP diastolic 51–64; TEMP 98.1–98.8; O2SAT 86–96
[2024-06-16] MEDS ORDERED: VANCOMYCIN 1 GM in IV D5W 250 ML IV ONE (14:00)
[2024-06-16] MEDS ORDERED: MEROPENEM 500 MG in IV NS 0.9% 50 ML IV SCH (14:00)
[2024-06-16 14:21] LABS: ABG BASE EXCESS 13.9 mmol/L (-2.0-3.0); ABG OXYGEN SATURATION 88.8 % (94.0-98.0); ABG PCO2 87.7 mmHg (35.0-48.0); ABG PH 7.316 (7.350-7.450); ABG PO2 58.3 mmHg (83.0-108.0); ABG TOTAL HEMOGLOBIN 12.4 G/dL (13.5-17.5); COHb 0.8 % (0.5-1.5); MetHb 0.3 % (0.0-1.5); O2Hb 87.8 % (94.0-97.0); SITE, ABG LEFT RADIAL
[2024-06-16 17:17] LABS: ABG BASE EXCESS 14.3 mmol/L (-2.0-3.0); ABG OXYGEN SATURATION 84.2 % (94.0-98.0); ABG PCO2 86.9 mmHg (35.0-48.0); ABG PH 7.323 (7.350-7.450); ABG PO2 50.3 mmHg (83.0-108.0); ABG TOTAL HEMOGLOBIN 12.5 G/dL (13.5-17.5); COHb 0.7 % (0.5-1.5); MetHb 0.1 % (0.0-1.5); O2Hb 83.5 % (94.0-97.0); SITE, ABG LEFT RADIAL
[2024-06-16] MEDS: VANCOMYCIN HCL 1.25 GM in IV D5W 250 ML IV ONE (17:33)
[2024-06-16 17:53] LABS: CREATININE 1.5 mg/dL (0.6-1.3)
[2024-06-16 18:01] LABS: CALCIUM, SERUM 8.6 mg/dL (8.5-10.1)
[2024-06-16] MEDS: MEROPENEM 1 G in IV NS 0.9% 100 ML IV SCH (18:57)
[2024-06-16] MEDS: VANCOMYCIN 750 MG in IV D5W 250 ML IV ONE (20:03)
[2024-06-17] VITALS (31 sets, daily range): BP systolic 96–145; BP diastolic 55–82; TEMP 98.6–99.5; O2SAT 71–98
[2024-06-17 05:19] LABS: BASOPHILS % (AUTO) 0.1 % (0.0-2.0); EOSINOPHILS # (AUTO) 0.1 K/uL (0.0-0.7); EOSINOPHILS % (AUTO) 1.1 % (0.0-6.0); HEMATOCRIT 32 % (39-51); HEMOGLOBIN 10.9 g/dL (13.5-17.5); LYMPHOCYTES # (AUTO) 0.6 K/uL (0.8-4.8); MEAN CORPUSCULAR HEMOGLOBIN 28 PG (26.0-33.0); MEAN CORPUSCULAR HGB CONC 34 g/dl (31.0-36.0); MEAN CORPUSCULAR VOLUME 84 fL (80-96); MONOCYTES # (AUTO) 1.2 K/uL (0.1-1.30); MONOCYTES % (AUTO) 12.3 % (2.0-12.0); NEUTROPHILS # (AUTO) 7.9 K/uL (1.8-8.9); NEUTROPHILS % (AUTO) 80.5 % (43.0-81.0); PLATELET COUNT (AUTO) 126 K/uL (150-450); RED BLOOD CELL COUNT(AUTO) 3.84 MIL/uL (4.5-6.0); RED CELL DISTRIBUTION WIDTH 16.6 % (11.5-15.0); WHITE BLOOD COUNT (AUTO) 9.8 K/uL (4.3-11.0)
[2024-06-17 07:05] LABS: CALCIUM, SERUM 8.1 mg/dL (8.5-10.1); CREATININE 1.5 mg/dL (0.6-1.3); POTASSIUM 4.4 mmol/L (3.5-5.1)
[2024-06-17] MEDS: VANCOMYCIN 1 GM in IV D5W 250ml IV SCH (08:52)
[2024-06-17 09:18] LABS: ABG BASE EXCESS 12.8 mmol/L (-2.0-3.0); ABG OXYGEN SATURATION 88.1 % (94.0-98.0); ABG PCO2 79.9 mmHg (35.0-48.0); ABG PH 7.337 (7.350-7.450); ABG PO2 58.9 mmHg (83.0-108.0); ABG TOTAL HEMOGLOBIN 12.4 G/dL (13.5-17.5); MetHb 0.1 % (0.0-1.5); SITE, ABG LEFT RADIAL
[2024-06-17] MEDS: ACETYLCYSTEINE 10% SOLN 400 MG/4 ML VIAL NEB SCH (15:30)
[2024-06-17] MEDS ORDERED: SILVER SULFADIAZINE 50 GM JAR TP PRN (21:00)
[2024-06-17] MEDS: risperiDONE 1 MG TABLET PO SCH (21:21)
[2024-06-17] MEDS: SILVER SULFADIAZINE 50 GM JAR TP SCH (21:26)
[2024-06-18] VITALS (24 sets, daily range): BP systolic 92–139; BP diastolic 45–88; TEMP 97.2–98.8; O2SAT 86–98
[2024-06-18 05:31] LABS: BASOPHILS % (AUTO) 0.2 % (0.0-2.0); EOSINOPHILS # (AUTO) 0.2 K/uL (0.0-0.7); EOSINOPHILS % (AUTO) 1.6 % (0.0-6.0); HEMATOCRIT 39 % (39-51); LYMPHOCYTES # (AUTO) 0.8 K/uL (0.8-4.8); LYMPHOCYTES % (AUTO) 8.4 % (20.0-44.0); MEAN CORPUSCULAR HEMOGLOBIN 28 PG (26.0-33.0); MEAN CORPUSCULAR HGB CONC 33 g/dl (31.0-36.0); MEAN CORPUSCULAR VOLUME 85 fL (80-96); MONOCYTES # (AUTO) 1.2 K/uL (0.1-1.30); MONOCYTES % (AUTO) 12.7 % (2.0-12.0); NEUTROPHILS # (AUTO) 7.3 K/uL (1.8-8.9); NEUTROPHILS % (AUTO) 77.1 % (43.0-81.0); PLATELET COUNT (AUTO) 142 K/uL (150-450); RED BLOOD CELL COUNT(AUTO) 4.62 MIL/uL (4.5-6.0); RED CELL DISTRIBUTION WIDTH 16.7 % (11.5-15.0); WHITE BLOOD COUNT (AUTO) 9.5 K/uL (4.3-11.0)
[2024-06-18 05:49] LABS: ALBUMIN 3.1 g/dL (3.4-5.0); BILIRUBIN,TOTAL 0.8 mg/dL (0.2-1.0); CALCIUM, SERUM 9.1 mg/dL (8.5-10.1); CREATININE 0.9 mg/dL (0.6-1.3); MAGNESIUM 2.3 mg/dL (1.8-2.4); PHOSPHORUS 2.9 mg/dL (2.5-4.9); POTASSIUM 4.6 mmol/L (3.5-5.1)
[2024-06-18] MEDS: VANCOMYCIN 1 GM in IV D5W 250ml IV SCH (08:14)
[2024-06-18 08:47] LABS: ABG BASE EXCESS 16.2 mmol/L (-2.0-3.0); ABG OXYGEN SATURATION 94.4 % (94.0-98.0); ABG PCO2 79.6 mmHg (35.0-48.0); ABG PH 7.373 (7.350-7.450); ABG PO2 73.8 mmHg (83.0-108.0); ABG TOTAL HEMOGLOBIN 12.8 G/dL (13.5-17.5); COHb 0.7 % (0.5-1.5); MetHb 0.3 % (0.0-1.5); O2Hb 93.5 % (94.0-97.0); SITE, ABG RIGHT RADIAL
[2024-06-19] VITALS (29 sets, daily range): BP systolic 91–138; BP diastolic 44–80; TEMP 97.5–98.7; O2SAT 78–99
[2024-06-19 05:55] LABS: CALCIUM, SERUM 9.4 mg/dL (8.5-10.1); CREATININE 0.8 mg/dL (0.6-1.3); POTASSIUM 4.2 mmol/L (3.5-5.1)
[2024-06-19 11:58] LABS: ABG BASE EXCESS 16.7 mmol/L (-2.0-3.0); ABG OXYGEN SATURATION 86.1 % (94.0-98.0); ABG PCO2 69.4 mmHg (35.0-48.0); ABG PH 7.423 (7.350-7.450); ABG TOTAL HEMOGLOBIN 11.9 G/dL (13.5-17.5); COHb 0.3 % (0.5-1.5); MetHb 0.3 % (0.0-1.5); O2Hb 85.6 % (94.0-97.0); SITE, ABG RIGHT RADIAL
[2024-06-19] MEDS: VANCOMYCIN 500 MG in IV D5W 100ml IV ONE (14:07)
[2024-06-20] VITALS (25 sets, daily range): BP systolic 90–137; BP diastolic 36–72; TEMP 97.3–98.6; O2SAT 75–99
[2024-06-20 09:53] LABS: CALCIUM, SERUM 8.9 mg/dL (8.5-10.1); CREATININE 0.8 mg/dL (0.6-1.3)
[2024-06-20 10:54] LABS: ABG BASE EXCESS 15.3 mmol/L (-2.0-3.0); ABG OXYGEN SATURATION 82.5 % (94.0-98.0); ABG PCO2 76.7 mmHg (35.0-48.0); ABG PH 7.374 (7.350-7.450); ABG PO2 47.9 mmHg (83.0-108.0); ABG TOTAL HEMOGLOBIN 11.9 G/dL (13.5-17.5); COHb 0.3 % (0.5-1.5); O2Hb 82.3 % (94.0-97.0); SITE, ABG LEFT RADIAL
[2024-06-20] MEDS: VANCOMYCIN 1.5 GM in IV D5W 500 ML IV SCH (13:48)
[2024-06-21] VITALS (15 sets, daily range): BP systolic 100–115; BP diastolic 51–68; TEMP 97.5–99.3; O2SAT 89–98
[2024-06-21 08:25] LABS: BASOPHILS % (AUTO) 0.3 % (0.0-2.0); EOSINOPHILS # (AUTO) 0.3 K/uL (0.0-0.7); HEMATOCRIT 37 % (39-51); LYMPHOCYTES # (AUTO) 1.5 K/uL (0.8-4.8); LYMPHOCYTES % (AUTO) 21.9 % (20.0-44.0); MEAN CORPUSCULAR HEMOGLOBIN 28 PG (26.0-33.0); MEAN CORPUSCULAR HGB CONC 33 g/dl (31.0-36.0); MEAN CORPUSCULAR VOLUME 86 fL (80-96); MONOCYTES # (AUTO) 0.7 K/uL (0.1-1.30); MONOCYTES % (AUTO) 10.2 % (2.0-12.0); NEUTROPHILS # (AUTO) 4.3 K/uL (1.8-8.9); NEUTROPHILS % (AUTO) 63.6 % (43.0-81.0); PLATELET COUNT (AUTO) 140 K/uL (150-450); RED BLOOD CELL COUNT(AUTO) 4.33 MIL/uL (4.5-6.0); RED CELL DISTRIBUTION WIDTH 16.2 % (11.5-15.0); WHITE BLOOD COUNT (AUTO) 6.8 K/uL (4.3-11.0)
[2024-06-21 08:30] LABS: CALCIUM, SERUM 8.8 mg/dL (8.5-10.1); CREATININE 0.8 mg/dL (0.6-1.3); MAGNESIUM 1.9 mg/dL (1.8-2.4); PHOSPHORUS 2.7 mg/dL (2.5-4.9); POTASSIUM 4.6 mmol/L (3.5-5.1)
[2024-06-21 09:34] LABS: ABG OXYGEN SATURATION 89.8 % (94.0-98.0); ABG PCO2 81.9 mmHg (35.0-48.0); ABG PH 7.367 (7.350-7.450); ABG PO2 61.5 mmHg (83.0-108.0); ABG TOTAL HEMOGLOBIN 11.9 G/dL (13.5-17.5); COHb 0.1 % (0.5-1.5); MetHb 0.1 % (0.0-1.5); O2Hb 89.6 % (94.0-97.0); SITE, ABG RIGHT RADIAL
[2024-06-21 13:11] LABS: *SPE A/G RATIO 0.8 (0.7-1.7); *SPE ALPHA-1-GLOBULIN 0.4 g/dL (0.0-0.4); *SPE ALPHA-2-GLOBULIN 1.1 g/dL (0.4-1.0); *SPE BETA GLOBULIN 1.3 g/dL (0.7-1.3); *SPE M-SPIKE Not Observed g/dL (Not Observed); *SPEGAMMA GLOBULIN 1.2 g/dL (0.4-1.8)
[2024-06-22] VITALS (14 sets, daily range): BP systolic 94–129; BP diastolic 5–69; TEMP 97.8–99.1; O2SAT 90–99
[2024-06-22 08:21] LABS: CALCIUM, SERUM 9.2 mg/dL (8.5-10.1); CREATININE 0.8 mg/dL (0.6-1.3); POTASSIUM 4.4 mmol/L (3.5-5.1)
[2024-06-23] VITALS (10 sets, daily range): BP systolic 101–138; BP diastolic 63–97; TEMP 97.7–98.6; O2SAT 6–96
[2024-06-23 07:46] LABS: BASOPHILS % (AUTO) 0.1 % (0.0-2.0); EOSINOPHILS # (AUTO) 0.3 K/uL (0.0-0.7); EOSINOPHILS % (AUTO) 3.9 % (0.0-6.0); HEMATOCRIT 33 % (39-51); HEMOGLOBIN 10.9 g/dL (13.5-17.5); LYMPHOCYTES # (AUTO) 1.2 K/uL (0.8-4.8); LYMPHOCYTES % (AUTO) 14.9 % (20.0-44.0); MEAN CORPUSCULAR HEMOGLOBIN 28 PG (26.0-33.0); MEAN CORPUSCULAR HGB CONC 33 g/dl (31.0-36.0); MEAN CORPUSCULAR VOLUME 85 fL (80-96); MONOCYTES # (AUTO) 0.6 K/uL (0.1-1.30); MONOCYTES % (AUTO) 6.9 % (2.0-12.0); NEUTROPHILS # (AUTO) 5.9 K/uL (1.8-8.9); NEUTROPHILS % (AUTO) 74.2 % (43.0-81.0); PLATELET COUNT (AUTO) 162 K/uL (150-450); RED BLOOD CELL COUNT(AUTO) 3.85 MIL/uL (4.5-6.0); RED CELL DISTRIBUTION WIDTH 16.3 % (11.5-15.0); WHITE BLOOD COUNT (AUTO) 7.9 K/uL (4.3-11.0)
[2024-06-23 07:56] LABS: CALCIUM, SERUM 9.5 mg/dL (8.5-10.1); CREATININE 0.8 mg/dL (0.6-1.3); MAGNESIUM 1.9 mg/dL (1.8-2.4); PHOSPHORUS 3.6 mg/dL (2.5-4.9); POTASSIUM 4.5 mmol/L (3.5-5.1)
[2024-06-24] VITALS (10 sets, daily range): BP systolic 107–133; BP diastolic 53–67; TEMP 98.1–99; O2SAT 6–96
[2024-06-24 07:14] LABS: BASOPHILS % (AUTO) 0.2 % (0.0-2.0); EOSINOPHILS # (AUTO) 0.4 K/uL (0.0-0.7); EOSINOPHILS % (AUTO) 5.6 % (0.0-6.0); HEMATOCRIT 33 % (39-51); HEMOGLOBIN 10.5 g/dL (13.5-17.5); LYMPHOCYTES # (AUTO) 1.2 K/uL (0.8-4.8); MEAN CORPUSCULAR HEMOGLOBIN 28 PG (26.0-33.0); MEAN CORPUSCULAR HGB CONC 32 g/dl (31.0-36.0); MEAN CORPUSCULAR VOLUME 86 fL (80-96); MONOCYTES # (AUTO) 0.5 K/uL (0.1-1.30); MONOCYTES % (AUTO) 6.9 % (2.0-12.0); NEUTROPHILS # (AUTO) 5.2 K/uL (1.8-8.9); NEUTROPHILS % (AUTO) 71.3 % (43.0-81.0); PLATELET COUNT (AUTO) 150 K/uL (150-450); RED CELL DISTRIBUTION WIDTH 16.3 % (11.5-15.0); WHITE BLOOD COUNT (AUTO) 7.3 K/uL (4.3-11.0)
[2024-06-24 07:25] LABS: CALCIUM, SERUM 8.9 mg/dL (8.5-10.1); CREATININE 1.1 mg/dL (0.6-1.3); MAGNESIUM 1.8 mg/dL (1.8-2.4)
[2024-06-24 08:00] LABS: POTASSIUM 4.2 mmol/L (3.5-5.1)
[2024-06-24] MEDS: VANCOMYCIN 750 MG in IV D5W 250 ML IV SCH ×2 (13:43→15:03)
[2024-06-24] MEDS ORDERED: SILV20CR13 TP (14:45)
[2024-06-24] MEDS ORDERED: ALBUT2 NEB (14:45)
[2024-06-24] MEDS ORDERED: VALP250S22 PO (14:45)
[2024-06-25] VITALS (7 sets, daily range): BP systolic 97–127; BP diastolic 44–64; TEMP 97.9–98.6; O2SAT 40–97
[2024-06-25 07:22] LABS: BASOPHILS % (AUTO) 0.2 % (0.0-2.0); EOSINOPHILS # (AUTO) 0.4 K/uL (0.0-0.7); EOSINOPHILS % (AUTO) 5.8 % (0.0-6.0); HEMATOCRIT 31 % (39-51); HEMOGLOBIN 10.1 g/dL (13.5-17.5); LYMPHOCYTES # (AUTO) 1.3 K/uL (0.8-4.8); LYMPHOCYTES % (AUTO) 16.8 % (20.0-44.0); MEAN CORPUSCULAR HEMOGLOBIN 27 PG (26.0-33.0); MEAN CORPUSCULAR HGB CONC 32 g/dl (31.0-36.0); MEAN CORPUSCULAR VOLUME 85 fL (80-96); MONOCYTES # (AUTO) 0.6 K/uL (0.1-1.30); MONOCYTES % (AUTO) 8.1 % (2.0-12.0); NEUTROPHILS # (AUTO) 5.3 K/uL (1.8-8.9); NEUTROPHILS % (AUTO) 69.1 % (43.0-81.0); PLATELET COUNT (AUTO) 154 K/uL (150-450); RED BLOOD CELL COUNT(AUTO) 3.68 MIL/uL (4.5-6.0); WHITE BLOOD COUNT (AUTO) 7.7 K/uL (4.3-11.0)
[2024-06-25 07:32] LABS: CALCIUM, SERUM 9.2 mg/dL (8.5-10.1); CREATININE 0.9 mg/dL (0.6-1.3); MAGNESIUM 1.5 mg/dL (1.8-2.4); PHOSPHORUS 3.4 mg/dL (2.5-4.9); POTASSIUM 4.6 mmol/L (3.5-5.1)
[2024-06-25 13:14] LABS: ABG BASE EXCESS 15.1 mmol/L (-2.0-3.0); ABG OXYGEN SATURATION 92.2 % (94.0-98.0); ABG PCO2 80.6 mmHg (35.0-48.0); ABG PH 7.352 (7.350-7.450); ABG PO2 68.9 mmHg (83.0-108.0); ABG TOTAL HEMOGLOBIN 10.9 G/dL (13.5-17.5); MetHb 0.3 % (0.0-1.5); O2Hb 91.9 % (94.0-97.0); SITE, ABG RIGHT RADIAL
[2024-06-25] MEDS: MAGNESIUM OXIDE 400 MG TABLET PO ONE ×2 (13:50→14:27)
[2024-06-26] VITALS (11 sets, daily range): BP systolic 108–122; BP diastolic 57–64; TEMP 97.5–99.1; O2SAT 90–100
[2024-06-26 08:38] LABS: CALCIUM, SERUM 9.1 mg/dL (8.5-10.1); CREATININE 0.8 mg/dL (0.6-1.3); MAGNESIUM 1.6 mg/dL (1.8-2.4); POTASSIUM 4.5 mmol/L (3.5-5.1)
[2024-06-26 11:09] LABS: ABG BASE EXCESS 16.1 mmol/L (-2.0-3.0); ABG OXYGEN SATURATION 80.8 % (94.0-98.0); ABG PH 7.392 (7.350-7.450); ABG PO2 46.4 mmHg (83.0-108.0); ABG TOTAL HEMOGLOBIN 10.9 G/dL (13.5-17.5); COHb 0.3 % (0.5-1.5); MetHb 0.3 % (0.0-1.5); O2Hb 80.3 % (94.0-97.0); SITE, ABG RIGHT RADIAL
[2024-06-26] MEDS: Magnesium 1GM/D5W 100ML PREMIX 100 ML IV SCH (12:56)
[2024-06-27] VITALS (11 sets, daily range): BP systolic 104–128; BP diastolic 50–62; TEMP 98–99.5; O2SAT 88–98
[2024-06-27 08:27] LABS: BASOPHILS % (AUTO) 0.4 % (0.0-2.0); EOSINOPHILS # (AUTO) 0.5 K/uL (0.0-0.7); EOSINOPHILS % (AUTO) 4.9 % (0.0-6.0); HEMATOCRIT 30 % (39-51); HEMOGLOBIN 9.7 g/dL (13.5-17.5); LYMPHOCYTES # (AUTO) 1.8 K/uL (0.8-4.8); LYMPHOCYTES % (AUTO) 17.4 % (20.0-44.0); MEAN CORPUSCULAR HEMOGLOBIN 27 PG (26.0-33.0); MEAN CORPUSCULAR HGB CONC 32 g/dl (31.0-36.0); MEAN CORPUSCULAR VOLUME 85 fL (80-96); MONOCYTES # (AUTO) 0.8 K/uL (0.1-1.30); MONOCYTES % (AUTO) 8.1 % (2.0-12.0); NEUTROPHILS # (AUTO) 7.3 K/uL (1.8-8.9); NEUTROPHILS % (AUTO) 69.2 % (43.0-81.0); PLATELET COUNT (AUTO) 213 K/uL (150-450); RED BLOOD CELL COUNT(AUTO) 3.54 MIL/uL (4.5-6.0); RED CELL DISTRIBUTION WIDTH 15.9 % (11.5-15.0); WHITE BLOOD COUNT (AUTO) 10.5 K/uL (4.3-11.0)
[2024-06-27 09:28] LABS: CALCIUM, SERUM 10.1 mg/dL (8.5-10.1); CREATININE 0.7 mg/dL (0.6-1.3); MAGNESIUM 2.2 mg/dL (1.8-2.4); PHOSPHORUS 4.1 mg/dL (2.5-4.9); POTASSIUM 4.8 mmol/L (3.5-5.1)
[2024-06-27] MEDS ORDERED: NA PHOS,M-B/NA PHOS,DI-BA 1 EA ENEMA RC PRN (15:30)
[2024-06-27] MEDS: MAGNESIUM HYDROXIDE 30 ML UDC PO PRN (15:45)
[2024-06-28 00:48] VITALS: BP 119/58; TEMP 98.1; O2SAT 98
[2024-06-28 04:00] VITALS: BP 116/62; TEMP 98.2; O2SAT 99
[2024-06-28 07:50] LABS: BASOPHILS % (AUTO) 0.2 % (0.0-2.0); EOSINOPHILS % (AUTO) 0.1 % (0.0-6.0); HEMATOCRIT 36 % (39-51); HEMOGLOBIN 11.5 g/dL (13.5-17.5); LYMPHOCYTES # (AUTO) 0.4 K/uL (0.8-4.8); LYMPHOCYTES % (AUTO) 2.8 % (20.0-44.0); MEAN CORPUSCULAR HEMOGLOBIN 28 PG (26.0-33.0); MEAN CORPUSCULAR HGB CONC 32 g/dl (31.0-36.0); MEAN CORPUSCULAR VOLUME 87 fL (80-96); MONOCYTES # (AUTO) 1.2 K/uL (0.1-1.30); MONOCYTES % (AUTO) 7.9 % (2.0-12.0); NEUTROPHILS # (AUTO) 13.8 K/uL (1.8-8.9); PLATELET COUNT (AUTO) 220 K/uL (150-450); RED BLOOD CELL COUNT(AUTO) 4.14 MIL/uL (4.5-6.0); RED CELL DISTRIBUTION WIDTH 15.5 % (11.5-15.0); WHITE BLOOD COUNT (AUTO) 15.5 K/uL (4.3-11.0)
[2024-06-28 08:00] VITALS: BP 131/74; TEMP 98.4; O2SAT 99
[2024-06-28 08:06] LABS: CALCIUM, SERUM 9.6 mg/dL (8.5-10.1); CREATININE 1.3 mg/dL (0.6-1.3); MAGNESIUM 3.8 mg/dL (1.8-2.4); PHOSPHORUS 3.5 mg/dL (2.5-4.9); POTASSIUM 5.6 mmol/L (3.5-5.1)
[2024-06-28 08:54] LABS: ABG BASE EXCESS 8.4 mmol/L (-2.0-3.0); ABG OXYGEN SATURATION 92.6 % (94.0-98.0); ABG PCO2 53.3 mmHg (35.0-48.0); ABG PH 7.426 (7.350-7.450); ABG PO2 65.1 mmHg (83.0-108.0); ABG TOTAL HEMOGLOBIN 12.3 G/dL (13.5-17.5); COHb 0.2 % (0.5-1.5); MetHb 0.2 % (0.0-1.5); O2Hb 92.2 % (94.0-97.0); SITE, ABG LEFT RADIAL
[2024-06-28] MEDS ORDERED: IV NS 0.9% 1,000 ML IV ONE (10:30)
[2024-06-28] MEDS ORDERED: SODIUM ZIRCONIUM CYCLOSILICATE 10 GM POWD.PACK PO SCH (10:30)
[2024-06-28 12:00] VITALS: BP 73/42; TEMP 98.4; O2SAT 91
[2024-06-28] MEDS ORDERED: EPINEPHRINE (1:10,000) SYRINGE 1 MG/10 ML DISP.SYRIN IVP ONE (12:59)
== END 2024-06-28 13:00 | DRG 935 ==
LOC: ER 10:06 → MED 12:18 → ICU 13:44 → TELE-TD 06-11 11:38 → TELE1 06-12 11:11 → MEDSG1 06-14 09:38 → ICU 06-16 15:35 → TELE-TD 06-20 18:41 → TELE1 06-21 09:40 → ICUOV 06-28 12:55
PROVIDERS: ADMIT Nurse Practitioner Acute Care; ATTEND Nurse Practitioner Acute Care
PROC: 5A09457 Assistance with Respiratory Ventilation, 24-96 Consecutive Hours, Continuous Positive Airway Pressure (ICD-10-PCS; principal; 2024-06-07)
PROC: 5A12012 Performance of Cardiac Output, Single, Manual (ICD-10-PCS; 2024-06-28)
PROC: 0BH18EZ Insertion of Endotracheal Airway into Trachea, Via Natural or Artificial Opening Endoscopic (ICD-10-PCS; 2024-06-28)
DX: T20.29XA Burn of second degree of multiple sites of head, face, and neck, initial encounter (principal); J96.21 Acute and chronic respiratory failure with hypoxia; J69.0 Pneumonitis due to inhalation of food and vomit; J15.9 Unspecified bacterial pneumonia; J96.22 Acute and chronic respiratory failure with hypercapnia; J44.1 Chronic obstructive pulmonary disease with (acute) exacerbation; J44.0 Chronic obstructive pulmonary disease with (acute) lower respiratory infection; E87.29 Other acidosis; N17.9 Acute kidney failure, unspecified; E66.2 Morbid (severe) obesity with alveolar hypoventilation; J98.11 Atelectasis; I11.0 Hypertensive heart disease with heart failure; I50.9 Heart failure, unspecified; D64.9 Anemia, unspecified; E11.9 Type 2 diabetes mellitus without complications; E78.5 Hyperlipidemia, unspecified; E87.5 Hyperkalemia; K21.9 Gastro-esophageal reflux disease without esophagitis; M79.7 Fibromyalgia; E83.9 Disorder of mineral metabolism, unspecified; Z99.81 Dependence on supplemental oxygen; N40.0 Benign prostatic hyperplasia without lower urinary tract symptoms; F10.10 Alcohol abuse, uncomplicated; F29 Unspecified psychosis not due to a substance or known physiological condition; X08.8XXA Exposure to other specified smoke, fire and flames, initial encounter; Y93.89 Activity, other specified; Y92.009 Unspecified place in unspecified non-institutional (private) residence as the place of occurrence of the external cause; K58.9 Irritable bowel syndrome, unspecified; F41.9 Anxiety disorder, unspecified; F32.9 Major depressive disorder, single episode, unspecified; Z68.37 Body mass index [BMI] 37.0-37.9, adult; Z20.822 Contact with and (suspected) exposure to COVID-19; F17.210 Nicotine dependence, cigarettes, uncomplicated; Z79.899 Other long term (current) drug therapy
CPT/HCPCS: 36415; 36600; 71045-TC; 76770-TC; 80048-TC; 80053-TC; 80061-TC; 80202-TC; 82550-TC; 82803-TC; 82962-TC; 83605-TC; 83735-TC; 83970; 84100-TC; 84155; 84165; 84484-TC; 85025-TC; 87040-TC; 94660; 94760-TC; 94762-TC; 94799-TC; 97110-TC; 97116-TC; 97530-TC; A4223; A6403; G0378; J0171; J0692; J1200; J1630; J1650; J2185; J2470; J2919; J3370; J3371; J3475; J3490; J7030; J7042; J7050; J7060; Q0177